=== PATIENT | female | born 1935 | race Caucasian/White ===

== ENCOUNTER 2018-01-22 18:23 | Inpatient (IN) | payer MEDICARE ==
[~2018-01-22] VITALS: Ht 170.2 cm; Wt 72.8 kg
--- NOTE | 2018-01-22 18:53 | PHYS DOC ---
Adult General Chief Complaint Chief Complaint: PSYCH EVALUATION HPI HPI Patient is a 82-year-old female with a history of congestive heart failure who was referred to this emergency room for medical clearance followed by admission to the adjacent hospital for [facility] psychiatric evaluation. This patient has had a new increasing dementia with behavioral disturbance as well as some suicidal thoughts and increasing agitation apparently on admission 12 [facility] psych unit has been arranged with Dr. gomez and we have been asked to this emergency room to medically clear the patient per the usual protocol. Patient denies any physical complaints she is perseverating on some incidents that may or may not be poorly taken care of. She says that she does have thoughts of hurting her daughter who she feels is not caring for her own children appropriately. Patient denies any physical complaints history is limited by dementia Review of Systems Review of Systems Unable secondary to dementia Physical Exam Physical Exam Constitutional: Well developed, well nourished, no acute distress, non-toxic appearance. [] HENT: Normocephalic, atraumatic, bilateral external ears normal, oropharynx moist, no oral exudates, nose normal. [] Eyes: PERRLA, EOMI, conjunctiva normal, no discharge. [] Neck: Normal range of motion, no tenderness, supple, no stridor. [] Normal respiratory effort no increased work of breathing Abdomen: Bowel sounds normal, soft, no tenderness, no masses, no pulsatile masses. [] Skin: Warm, dry, no erythema, no rash. [] Back: No tenderness, no CVA tenderness. [] Extremities: No tenderness, no cyanosis, no clubbing, ROM intact, trace edema Neurologic: Alert and responsive and following commands., normal motor function , normal sensory function, no focal deficits noted. []Patient is confused she thinks that she lives at home. Psychologic patient is perseverating on several different topics. She says that she does have some thoughts of hurting herself at times she has also had passing thoughts of hurting her daughter in the past. Current Patient Data Vital Signs Vital signs were reviewed. EKG EKG []EKG shows a normal sinus rhythm with a rate of 64 right bundle branch block pattern no STEMI was seen interpreted by me time of encounter Radiology/Procedures Radiology/Procedures [] Course & Med Decision Making Course & Med Decision Making Pertinent Labs and Imaging studies reviewed. (See chart for details) U/A NOTED, suspect this is a contaminated sample NO NITRITE POSITIVE SQUAMES CULTURE SENT. LABS STABLE MILD RENAL INSUFFICIENCY. SAFE FOR TRANSFER UP TO PSYCH UNIT FOR CONTINUED GERIPSYCHIATRIC EVALUATION [] Dragon Disclaimer Dragon Disclaimer This electronic medical record was generated, in whole or in part, using a voice recognition dictation system. Departure Departure: Impression: Primary Impression: Dementia with behavioral disturbance Disposition: ADMITTED INPATIENT Condition: STABLE MIKO GUZMAN MD January 22, 2018 18:53
[2018-01-22 19:34] LABS: BASO # 0.1 x10^3/uL (0.0-0.2); BASO % 1 % (0-3); EOS # 0.2 x10^3/uL (0.0-0.7); EOS % 3 % (0-3); HEMATOCRIT 40.3 % (36.0-47.0); HEMOGLOBIN 13.7 g/dL (12.0-15.5); LYMPH % 16 % (24-48); MEAN CORPUSCULAR HEMOGLOBIN 32 pg (25-35); MEAN CORPUSCULAR HGB CONC 34 g/dL (31-37); MEAN CORPUSCULAR VOLUME 94 fL (79-100); MONO # 0.4 x10^3/uL (0.0-1.1); MONO % 7 % (0-9); NEUT # 4.5 x10^3uL (1.8-7.7); NEUT % 73 % (31-73); PLATELET COUNT 257 x10^3/uL (140-400); RED BLOOD COUNT 4.31 x10^6/uL (3.50-5.40); RED CELL DISTRIBUTION WIDTH 14.7 % (11.5-14.5); WHITE BLOOD COUNT 6.1 x10^3/uL (4.0-11.0)
[2018-01-22 19:51] LABS: ALBUMIN 4.2 g/dL (3.4-5.0); CALCIUM 9.1 mg/dL (8.5-10.1); CREATININE 1.6 mg/dL (0.6-1.0); GFR 30.9; MAGNESIUM 2.4 mg/dL (1.8-2.4); POTASSIUM 4.1 mmol/L (3.5-5.1); TOTAL BILIRUBIN 0.6 mg/dL (0.2-1.0); TOTAL PROTEIN 8.3 g/dL (6.4-8.2)
[2018-01-22 20:00] LABS: BILIRUBIN,URINE NEG (NEG); CLARITY,URINE CLOUDY; COLOR,URINE YELLOW; GLUCOSE,URINE NEG (NEG)
[2018-01-22 20:01] LABS: BACTERIA,URINE MOD /HPF (0-FEW); HYALINE CASTS, URINE FEW /HPF; NITRITE,URINE NEG (NEG); SQUAMOUS EPITHELIAL CELL,UR MANY /LPF; UROBILINOGEN,URINE 0.2 mg/dL (0.2 mg/dL)
[2018-01-22 20:45] VITALS: BP 168/92
[2018-01-22] MEDS ORDERED: MAGNESIUM HYDROXIDE 2,400 MG/30 ML ORAL.SUSP. PO PRN (21:30)
[2018-01-22] MEDS ORDERED: METHYL SALICYLATE/MENTHOL TOPICAL OINTMENT 29GM TUBE. TP PRN (21:30)
[2018-01-22] MEDS ORDERED: MAG HYDROX/AL HYDROX/SIMETH 30 ML ORAL.SUSP PO PRN (21:30)
[2018-01-22] MEDS ORDERED: ACETAMINOPHEN 325 MG TABLET PO PRN ×2 (21:30→22:15)
--- NOTE | 2018-01-22 21:55 | EKG ---
[address] [address] Test Date: 2018-01-22 Test Time: 20:08:45 Pat Name: FRANCESCA URIARTE Department: Room: [address] [place] [address] Gender: F Instrument Checker: : 1935 Requested By: MIKO GUZMAN Order Number: [id number] Reading MD: Lazaro Craven Measurements Intervals [place] Rate: 64 P: 78 DC: 194 QRS: 1 QRSD: 122 T: 14 QT: 468 QTc: 488 Interpretive Statements SINUS RHYTHM INCOMPLETE RIGHT BUNDLE BRANCH BLOCK NO SPECIFIC ECG ABNORMALITIES RI6.01 No previous ECG available for comparison Electronically Signed On 02-09-2018 11:04:45 CDT by Lazaro Craven
[2018-01-22] MEDS ORDERED: ASPI325T8 PO (22:06)
[2018-01-22] MEDS ORDERED: AMIO200T2 PO (22:06)
[2018-01-22] MEDS ORDERED: ACET325T9 PO (22:06)
[2018-01-22] MEDS ORDERED: OMEG1CAP6 PO (22:06)
[2018-01-22] MEDS ORDERED: CARV3.122 PO (22:06)
[2018-01-22] MEDS ORDERED: LACT1CAP21 PO (22:06)
[2018-01-22] MEDS ORDERED: LORA0.5T96 PO ×2 (22:06)
[2018-01-22] MEDS ORDERED: FEXO180T81 PO (22:06)
[2018-01-22] MEDS ORDERED: POTA20TA4 PO (22:06)
[2018-01-22] MEDS ORDERED: PROP15DR40 OU (22:06)
[2018-01-22] MEDS ORDERED: FURO-69 PO (22:06)
[2018-01-22] MEDS ORDERED: CHOL10003 PO (22:06)
[2018-01-22] MEDS ORDERED: POLY17PO5 PO (22:06)
[2018-01-22] MEDS ORDERED: LEVO50TA PO (22:06)
[2018-01-22] MEDS ORDERED: QUET50TA5 PO (22:06)
[2018-01-22] MEDS ORDERED: GARL10002 PO (22:06)
[2018-01-22] MEDS ORDERED: NAPR-683 PO (22:06)
[2018-01-22] MEDS ORDERED: CYAN10005 PO (22:06)
[2018-01-22] MEDS ORDERED: MAGN400T3 PO (22:06)
[2018-01-22] MEDS ORDERED: IPRA3AMP NEB (22:06)
[2018-01-22] MEDS ORDERED: IPRA0.2S5 IH (22:06)
[2018-01-22] MEDS ORDERED: DILT120C80 PO (22:06)
[2018-01-22] MEDS ORDERED: IPRATROPIUM BROMIDE 0.5 MG/2.5 ML NEBU. IH PRN (22:15)
[2018-01-22] MEDS ORDERED: IPRATRPIUM/ALBUTEROL 0.5/2.5MG 3 ML NEBU. NEB PRN (22:15)
[2018-01-22] MEDS: QUEtiapine 50 MG TABLET. PO SCH (22:30)
[2018-01-22] MEDS: LORazepam 0.5 MG TABLET PO SCH (22:30)
[2018-01-22] MEDS ORDERED: POLYVINYL ALCOHOL/POVIDONE/PF OPHTH SOLUTION DROPERETTE. OU PRN (22:45)
[2018-01-23 06:17] VITALS: BP 141/63
[2018-01-23] MEDS ORDERED: LEVOTHYROXINE 50 MCG TABLET PO SCH (07:00)
[2018-01-23] MEDS: LACTOBACILLUS RHAMNOSUS GG 1 CAPSULE. PO SCH (08:44)
[2018-01-23] MEDS: POTASSIUM CHLORIDE 20 MEQ TABLET.ER. PO SCH (08:45)
[2018-01-23] MEDS: QUEtiapine 50 MG TABLET. PO SCH ×3 (08:45→21:06)
[2018-01-23] MEDS: CYANOCOBALAMIN (VITAMIN B-12) 1,000 MCG TABLET. PO SCH (08:45)
[2018-01-23] MEDS: ASPIRIN 325 MG TABLET PO SCH (08:45)
[2018-01-23] MEDS: OMEGA-3 FATTY ACIDS/FISH OIL 1,000 MG CAPSULE. PO SCH (08:46)
[2018-01-23] MEDS: AMIODARONE HCL 200 MG TABLET PO SCH (08:46)
[2018-01-23] MEDS: CARVEDILOL 3.125 MG TABLET PO SCH (08:46)
[2018-01-23] MEDS: MAGNESIUM OXIDE 400 MG TABLET PO SCH (08:46)
[2018-01-23] MEDS: NAPROXEN 500 MG TABLET PO SCH (08:47)
[2018-01-23] MEDS: FUROSEMIDE 20 MG TABLET PO SCH (08:47)
[2018-01-23] MEDS ORDERED: CETIRIZINE HCL 10 MG TABLET PO PRN (09:00)
[2018-01-23] MEDS ORDERED: GARLIC 2000 MG PO SCH (09:00)
[2018-01-23] MEDS ORDERED: POLYETHYLENE GLYCOL 3350 17 GM PACKET. PO PRN (09:00)
[2018-01-23] MEDS: LORazepam 0.5 MG TABLET PO PRN (09:02)
[2018-01-23 16:08] VITALS: BP 142/66
[2018-01-23] MEDS: CHOLECALCIFEROL (VITAMIN D3) 1,000 UNIT TABLET PO SCH (16:16)
[2018-01-23 20:11] LABS: T3 TOTAL 59 ng/dL (71-180); THYROXINE 6.4 ug/dL (4.5-12.0)
--- NOTE | 2018-01-23 20:45 | PDOC ---
Exam Note: Aakash Note: Please also refer to the separate dictated note~for this date of service dictated separately.~Patient seen individually. Discussed the patient with Nursing staff reviewed the chart.~Reviewed interim history and current functioning. Reviewed vital signs,~Labs/ Radiology~and current medications noted below. Continue current treatment with the changes noted in the dictated addendum note Assessment: Vital Signs: Vital Signs Date Time Temp Pulse Resp B/P (MAP) Pulse Ox O2 Delivery O2 Flow Rate FiO2 01/23/18 16:08 96.9 56 18 142/66 (91) 98 01/23/18 06:17 Room Air I&O Intake and Output 01/23/18 07:00 Intake Total 0 ml Balance 0 ml Intake Oral 0 ml Labs: Laboratory Tests Test 01/22/18 21:45 Iron Level 60 ug/dL (50-170) Total Iron Binding Capacity 268 ug/dL (250-450) Iron Saturation 22 % (15-34) Triglycerides Level 140 mg/dL (0-150) Cholesterol Level 234 mg/dL (0-200) H LDL Cholesterol, Calculated 144 mg/dL (0-100) H VLDL Cholesterol, Calculated 28 mg/dL (0-40) Non-HDL Cholesterol Calculated 172 mg/dL (0-129) H HDL Cholesterol 62 mg/dL (40-60) H Cholesterol/HDL Ratio 3.0 Vitamin B12 Level > 2000 pg/mL (247-911) H 25-Hydroxy Vitamin D Total 23.1 ng/mL (30-100) L Thyroxine (T4) 6.4 ug/dL (4.5-12.0) Total Triiodothyronine (TT3) 59 ng/dL (71-180) L Rapid Plasma Reagin Pending Current Medications: Meds: Current Medications Acetaminophen (Tylenol) 650 mg PRN Q6HRS PRN PO PAIN / TEMP; Start 01/22/18 at 21:30; Stop 01/22/18 at 22:23; Status DC Multi-Ingredient Ointment (Analgesic [place]) 1 morenita PRN QID PRN TP MUSCLE PAIN; Start 01/22/18 at 21:30 Al Hydroxide/Mg Hydroxide (Mylanta Plus Xs) 15 ml PRN AFTMEALHC PRN PO DYSPEPSIA; Start 01/22/18 at 21:30 Magnesium Hydroxide (Milk Of Magnesia) 2,400 mg PRN QHS PRN PO CONSTIPATION; Start 01/22/18 at 21:30 Lorazepam (Ativan) 0.5 mg QHS PO ; Start 01/22/18 at 22:30 Lorazepam (Ativan) 0.5 mg PRN Q4HRS PRN PO ANXIETY / AGITATION Last administered on 01/23/18at 09:02; Start 01/22/18 at 22:30 Quetiapine Fumarate (SEROquel) 50 mg TID PO Last administered on 01/23/18at 14:44 ; Start 01/22/18 at 22:30 Acetaminophen (Tylenol) 650 mg PRN Q4HRS PRN PO PAIN; Start 01/22/18 at 22:15; Stop 01/22/18 at 22:24; Status DC Aspirin (Galina Aspirin) 325 mg DAILY PO Last administered on 01/23/18at 08:45; Start 01/23/18 at 09:00 Vitamin D (Vitamin D3) 1,000 unit QMWF PO Last administered on 01/23/18at 16:16; Start 01/23/18 at 16:00 Cyanocobalamin (Vitamin B-12) 1,000 mcg DAILY PO Last administered on 01/23/18at 08:45; Start 01/23/18 at 09:00 Diltiazem HCl (Cardizem 24hr Cd) 120 mg DAILY PO Last administered on 01/23/18at 08:45; Start 01/23/18 at 09:00 Furosemide (Lasix) 20 mg DAILY PO Last administered on 01/23/18at 08:47; Start at 09:00 Ipratropium [place] (Atrovent) 0.2 mg PRN Q4HRS PRN IH SHORTNESS OF BREATH; Start 01/22/18 at 22:15 Albuterol/ Ipratropium (Duoneb) 3 ml PRN QID PRN NEB SHORTNESS OF BREATH; Start 01/22/18 at 22:15 Fish Oil (Fish Oil) 1,000 mg DAILY PO Last administered on 01/23/18at 08:46; Start 01/23/18 at 09:00 Potassium Chloride (Klor-Con) 20 meq DAILY PO Last administered on 01/23/18at 08: 45; Start 01/23/18 at 09:00 Amiodarone HCl (Cordarone) 200 mg DAILY PO Last administered on 01/23/18at 08:46 ; Start 01/23/18 at 09:00 Carvedilol (Coreg) 3.125 mg DAILY PO Last administered on 01/23/18at 08:46; Start 01/23/18 at 09:00 Cetirizine HCl (ZyrTEC) 10 mg PRN DAILY PRN PO ALLERGIES Last administered on at 08:45; Start 01/23/18 at 09:00 Non-Formulary Medication (Garlic ) 2,000 mg DAILY PO ; Start 01/23/18 at 09:00; Stop 01/23/18 at 09:00; Status DC Lactobacillus Rhamnosus (Culturelle) 1 cap DAILY PO Last administered on at 08:44; Start 01/23/18 at 09:00 Levothyroxine Sodium (Synthroid) 50 mcg DAILY07 PO Last administered on at 05:46; Start 01/23/18 at 07:00; Stop 01/23/18 at 14:03; Status DC Magnesium Oxide (Magnesium Oxide) 400 mg DAILY PO Last administered on at 08:46; Start 01/23/18 at 09:00 Naproxen (Naprosyn) 500 mg DAILY PO Last administered on 01/23/18at 08:47; Start 01/23/18 at 09:00 Polyethylene Glycol (miraLAX) 17 gm PRN DAILY PRN PO CONSTIPATION; Start at 09:00 Artificial Tears (Refresh Classic) 1 drop PRN DAILY PRN OU DRY EYE; Start 01/22 at 22:45 Acetaminophen (Tylenol) 650 mg PRN Q4HRS PRN PO PAIN / TEMP; Start 01/22/18 at 22:30 Levothyroxine Sodium (Synthroid) 50 mcg DAILY06 PO ; Start 01/24/18 at 06:00 Sertraline HCl (Zoloft) 25 mg DAILY PO ; Start 01/24/18 at 09:00; Stop 01/27/18 at 08:59 Sertraline HCl (Zoloft) 50 mg DAILY PO ; Start 01/27/18 at 09:00 Active Scripts Active Reported Vitamin D3 (Cholecalciferol (Vitamin D3)) 1,000 Unit Tablet 1,000 Unit PO EVERY FRI,WED,FRI Vitamin B-12 (Cyanocobalamin (Vitamin B-12)) 1,000 Mcg Tablet 1,000 Mcg PO DAILY Tylenol (Acetaminophen) 325 Mg Tablet 650 Mg PO PRN Q4HRS PRN Systane 0.3-0.4% Eye Drops (Propylene Glycol/Peg 400) 15 Ml Drops 1 Drop OU PRN PRN Synthroid (Levothyroxine Sodium) 50 Mcg Tablet 50 Mcg PO DAILYAC Seroquel (Quetiapine Fumarate) 50 Mg Tablet 50 Mg PO TID Klor-Con M20 (Potassium Chloride) 20 Meq Tab.er.prt 20 Meq PO DAILY Naprosyn (Naproxen) 500 Mg Tablet 500 Mg PO DAILY Miralax (Polyethylene Glycol 3350) 17 Gm Powd.pack 17 Gm PO PRN Q24HRS PRN Magnesium Oxide 400 Mg Tablet 400 Mg PO DAILY Lasix (Furosemide) 20 Mg Tablet 20 Mg PO DAILY Ipratropium [place] 0.2 Mg/1 Ml Solution 0.2 Mg IH PRN Q4HRS PRN Garlic 1,000 Mg Capsule 2,000 Mg PO DAILY Fish Oil 1,000 Mg Capsule ([place]-3 Fatty Acids/Fish Oil) 1 Each Capsule 1 Each PO DAILY Duoneb 0.5-3(2.5) Mg/3 Ml (Albuterol/Ipratropium) 3 Ml Ampul.neb 3 Ml NEB PRN QID PRN Diltiazem 24HR Cd (Diltiazem Hcl) 120 Mg Cap.er.24h 120 Mg PO DAILY Culturelle (Lactobacillus Rhamnosus Gg) 1 Each Capsule 1 Each PO DAILY Carvedilol 3.125 Mg Tablet 3.125 Mg PO DAILY Ativan (Lorazepam) 0.5 Mg Tablet 0.5 Mg PO PRN Q4HRS PRN Ativan (Lorazepam) 0.5 Mg Tablet 0.5 Mg PO HS Aspirin 325 Mg Tablet 325 Mg PO DAILY Amiodarone Hcl 200 Mg Tablet 200 Mg PO DAILY Janiya Allergy (Fexofenadine Hcl) 180 Mg Tablet 180 Mg PO PRN DAILY PRN I have reviewed the current psychotropics carefully including drug interactions. Risk benefit ratio favors no change other than as noted in my dictated progress note. Diagnosis: Problems: (1) Anxiety disorder (2) Dementia in Alzheimer's disease with delusions (3) Dementia in Alzheimer's disease with depression (4) Dementia, vascular, with delusions (5) Dementia, vascular, with depression (6) Impulse control disorder SANDER RASMUSSEN MD Jan 23, 2018 20:45
[2018-01-23] MEDS: LORazepam 0.5 MG TABLET PO SCH (21:08)
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
[2018-01-24 02:09] LABS: HEMOGLOBIN A1C 5.2 % (4.8-5.6)
[2018-01-24] MEDS: LEVOTHYROXINE 50 MCG TABLET PO SCH (06:04)
[2018-01-24 06:19] VITALS: BP 160/56
[2018-01-24] MEDS: ASPIRIN 325 MG TABLET PO SCH (07:55)
[2018-01-24] MEDS: QUEtiapine 50 MG TABLET. PO SCH ×3 (07:55→20:17)
[2018-01-24] MEDS: NAPROXEN 500 MG TABLET PO SCH (07:55)
[2018-01-24] MEDS: OMEGA-3 FATTY ACIDS/FISH OIL 1,000 MG CAPSULE. PO SCH (07:55)
[2018-01-24] MEDS: MAGNESIUM OXIDE 400 MG TABLET PO SCH (07:55)
[2018-01-24] MEDS: LACTOBACILLUS RHAMNOSUS GG 1 CAPSULE. PO SCH (07:56)
[2018-01-24] MEDS: FUROSEMIDE 20 MG TABLET PO SCH (07:56)
[2018-01-24] MEDS: POTASSIUM CHLORIDE 20 MEQ TABLET.ER. PO SCH (07:57)
[2018-01-24] MEDS: AMIODARONE HCL 200 MG TABLET PO SCH (07:57)
[2018-01-24] MEDS: CYANOCOBALAMIN (VITAMIN B-12) 1,000 MCG TABLET. PO SCH (07:57)
[2018-01-24] MEDS: CARVEDILOL 3.125 MG TABLET PO SCH (07:58)
[2018-01-24] MEDS: SERTRALINE 25 MG TABLET. PO SCH (08:01)
[2018-01-24 16:44] VITALS: BP 108/62
[2018-01-24] MEDS: LORazepam 0.5 MG TABLET PO SCH (20:18)
--- NOTE | 2018-01-24 22:09 | PDOC ---
Exam Note: Aakash Note: Please also refer to the separate dictated note~for this date of service dictated separately.~Patient seen individually. Discussed the patient with Nursing staff reviewed the chart.~Reviewed interim history and current functioning. Reviewed vital signs,~Labs/ Radiology~and current medications noted below. Continue current treatment with the changes noted in the dictated addendum note Assessment: Vital Signs: Vital Signs Date Time Temp Pulse Resp B/P (MAP) Pulse Ox O2 Delivery O2 Flow Rate FiO2 01/24/18 16:44 97.4 50 18 108/62 (77) 99 01/23/18 06:17 Room Air I&O Intake and Output 01/24/18 07:00 Intake Total 1020 ml Balance 1020 ml Intake Oral 1020 ml Current Medications: Meds: Current Medications Acetaminophen (Tylenol) 650 mg PRN Q6HRS PRN PO PAIN / TEMP; Start 01/22/18 at 21:30; Stop 01/22/18 at 22:23; Status DC Multi-Ingredient Ointment (Analgesic [place]) 1 morenita PRN QID PRN TP MUSCLE PAIN; Start 01/22/18 at 21:30 Al Hydroxide/Mg Hydroxide (Mylanta Plus Xs) 15 ml PRN AFTMEALHC PRN PO DYSPEPSIA; Start 01/22/18 at 21:30 Magnesium Hydroxide (Milk Of Magnesia) 2,400 mg PRN QHS PRN PO CONSTIPATION; Start 01/22/18 at 21:30 Lorazepam (Ativan) 0.5 mg QHS PO Last administered on 01/24/18at 20:18; Start at 22:30 Lorazepam (Ativan) 0.5 mg PRN Q4HRS PRN PO ANXIETY / AGITATION Last administered on 01/23/18at 09:02; Start 01/22/18 at 22:30 Quetiapine Fumarate (SEROquel) 50 mg TID PO Last administered on 01/24/18at 20:17 ; Start 01/22/18 at 22:30 Acetaminophen (Tylenol) 650 mg PRN Q4HRS PRN PO PAIN; Start 01/22/18 at 22:15; Stop 01/22/18 at 22:24; Status DC Aspirin (Galina Aspirin) 325 mg DAILY PO Last administered on 01/24/18at 07:55; Start 01/23/18 at 09:00 Vitamin D (Vitamin D3) 1,000 unit QMWF PO Last administered on 01/23/18at 16:16; Start 01/23/18 at 16:00 Cyanocobalamin (Vitamin B-12) 1,000 mcg DAILY PO Last administered on 01/24/18at 07:57; Start 01/23/18 at 09:00 Diltiazem HCl (Cardizem 24hr Cd) 120 mg DAILY PO Last administered on 01/24/18at 07:57; Start 01/23/18 at 09:00 Furosemide (Lasix) 20 mg DAILY PO Last administered on 01/24/18 07:56; Start at 09:00 Ipratropium [place] (Atrovent) 0.2 mg PRN Q4HRS PRN IH SHORTNESS OF BREATH; Start 01/22/18 at 22:15 Albuterol/ Ipratropium (Duoneb) 3 ml PRN QID PRN NEB SHORTNESS OF BREATH; Start 01/22/18 at 22:15 Fish Oil (Fish Oil) 1,000 mg DAILY PO Last administered on 01/24/18at 07:55; Start 01/23/18 at 09:00 Potassium Chloride (Klor-Con) 20 meq DAILY PO Last administered on 01/24/18 07: 57; Start 01/23/18 at 09:00 Amiodarone HCl (Cordarone) 200 mg DAILY PO Last administered on 01/23/18at 08:46 ; Start 01/23/18 at 09:00 Carvedilol (Coreg) 3.125 mg DAILY PO Last administered on 01/23/18at 08:46; Start 01/23/18 at 09:00 Cetirizine HCl (ZyrTEC) 10 mg PRN DAILY PRN PO ALLERGIES Last administered on at 08:45; Start 01/23/18 at 09:00 Non-Formulary Medication (Garlic ) 2,000 mg DAILY PO ; Start 01/23/18 at 09:00; Stop 01/23/18 at 09:00; Status DC Lactobacillus Rhamnosus (Culturelle) 1 cap DAILY PO Last administered on at 07:56; Start 01/23/18 at 09:00 Levothyroxine Sodium (Synthroid) 50 mcg DAILY07 PO Last administered on at 05:46; Start 01/23/18 at 07:00; Stop 01/23/18 at 14:03; Status DC Magnesium Oxide (Magnesium Oxide) 400 mg DAILY PO Last administered on at 07:55; Start 01/23/18 at 09:00 Naproxen (Naprosyn) 500 mg DAILY PO Last administered on 01/24/18at 07:55; Start 01/23/18 at 09:00 Polyethylene Glycol (miraLAX) 17 gm PRN DAILY PRN PO CONSTIPATION; Start at 09:00 Artificial Tears (Refresh Classic) 1 drop PRN DAILY PRN OU DRY EYE; Start 01/22 at 22:45 Acetaminophen (Tylenol) 650 mg PRN Q4HRS PRN PO PAIN / TEMP; Start 01/22/18 at 22:30 Levothyroxine Sodium (Synthroid) 50 mcg DAILY06 PO Last administered on at 06:04; Start 01/24/18 at 06:00 Sertraline HCl (Zoloft) 25 mg DAILY PO Last administered on 01/24/18at 08:01; Start 01/24/18 at 09:00; Stop 01/27/18 at 08:59 Sertraline HCl (Zoloft) 50 mg DAILY PO ; Start 01/27/18 at 09:00 Olanzapine (ZyPREXA ZYDIS) 2.5 mg PRN Q2HR PRN PO PSYCHOSIS Last administered on 01/24/18at 22:08; Start 01/24/18 at 22:00 Active Scripts Active Reported Vitamin D3 (Cholecalciferol (Vitamin D3)) 1,000 Unit Tablet 1,000 Unit PO EVERY FRI,WED,FRI Vitamin B-12 (Cyanocobalamin (Vitamin B-12)) 1,000 Mcg Tablet 1,000 Mcg PO DAILY Tylenol (Acetaminophen) 325 Mg Tablet 650 Mg PO PRN Q4HRS PRN Systane 0.3-0.4% Eye Drops (Propylene Glycol/Peg 400) 15 Ml Drops 1 Drop OU PRN PRN Synthroid (Levothyroxine Sodium) 50 Mcg Tablet 50 Mcg PO DAILYAC Seroquel (Quetiapine Fumarate) 50 Mg Tablet 50 Mg PO TID Klor-Con M20 (Potassium Chloride) 20 Meq Tab.er.prt 20 Meq PO DAILY Naprosyn (Naproxen) 500 Mg Tablet 500 Mg PO DAILY Miralax (Polyethylene Glycol 3350) 17 Gm Powd.pack 17 Gm PO PRN Q24HRS PRN Magnesium Oxide 400 Mg Tablet 400 Mg PO DAILY Lasix (Furosemide) 20 Mg Tablet 20 Mg PO DAILY Ipratropium [place] 0.2 Mg/1 Ml Solution 0.2 Mg IH PRN Q4HRS PRN Garlic 1,000 Mg Capsule 2,000 Mg PO DAILY Fish Oil 1,000 Mg Capsule ([place]-3 Fatty Acids/Fish Oil) 1 Each Capsule 1 Each PO DAILY Duoneb 0.5-3(2.5) Mg/3 Ml (Albuterol/Ipratropium) 3 Ml Ampul.neb 3 Ml NEB PRN QID PRN Diltiazem 24HR Cd (Diltiazem Hcl) 120 Mg Cap.er.24h 120 Mg PO DAILY Culturelle (Lactobacillus Rhamnosus Gg) 1 Each Capsule 1 Each PO DAILY Carvedilol 3.125 Mg Tablet 3.125 Mg PO DAILY Ativan (Lorazepam) 0.5 Mg Tablet 0.5 Mg PO PRN Q4HRS PRN Ativan (Lorazepam) 0.5 Mg Tablet 0.5 Mg PO HS Aspirin 325 Mg Tablet 325 Mg PO DAILY Amiodarone Hcl 200 Mg Tablet 200 Mg PO DAILY Janiya Allergy (Fexofenadine Hcl) 180 Mg Tablet 180 Mg PO PRN DAILY PRN I have reviewed the current psychotropics carefully including drug interactions. Risk benefit ratio favors no change other than as noted in my dictated progress note. Diagnosis: Problems: (1) Anxiety disorder (2) Dementia in Alzheimer's disease with delusions (3) Dementia in Alzheimer's disease with depression (4) Dementia, vascular, with delusions (5) Dementia, vascular, with depression (6) Impulse control disorder SANDER RASMUSSEN MD Jan 24, 2018 22:09
[2018-01-25] MEDS: LEVOTHYROXINE 50 MCG TABLET PO SCH ×2 (05:11→05:37)
[2018-01-25] MEDS: NAPROXEN 500 MG TABLET PO SCH (07:57)
[2018-01-25] MEDS: ASPIRIN 325 MG TABLET PO SCH (07:57)
[2018-01-25] MEDS: FUROSEMIDE 20 MG TABLET PO SCH (07:57)
[2018-01-25] MEDS: QUEtiapine 50 MG TABLET. PO SCH ×3 (07:57→19:42)
[2018-01-25] MEDS: POTASSIUM CHLORIDE 20 MEQ TABLET.ER. PO SCH (07:57)
[2018-01-25] MEDS: OMEGA-3 FATTY ACIDS/FISH OIL 1,000 MG CAPSULE. PO SCH (07:57)
[2018-01-25] MEDS: CYANOCOBALAMIN (VITAMIN B-12) 1,000 MCG TABLET. PO SCH (07:58)
[2018-01-25] MEDS: MAGNESIUM OXIDE 400 MG TABLET PO SCH (07:58)
[2018-01-25] MEDS: SERTRALINE 25 MG TABLET. PO SCH (07:58)
[2018-01-25] MEDS: CARVEDILOL 3.125 MG TABLET PO SCH (07:59)
[2018-01-25] MEDS: LACTOBACILLUS RHAMNOSUS GG 1 CAPSULE. PO SCH (07:59)
[2018-01-25] MEDS: AMIODARONE HCL 200 MG TABLET PO SCH (07:59)
[2018-01-25] MEDS ORDERED: FOSFOMYCIN TROMETHAMINE 3 GM PACKET PO ONE (16:00)
[2018-01-25 16:32] VITALS: BP 100/61
[2018-01-25] MEDS: LORazepam 0.5 MG TABLET PO SCH (19:42)
--- NOTE | 2018-01-25 20:01 | PDOC ---
Exam Note: Aakash Note: Please also refer to the separate dictated note~for this date of service dictated separately.~Patient seen individually. Discussed the patient with Nursing staff reviewed the chart.~Reviewed interim history and current functioning. Reviewed vital signs,~Labs/ Radiology~and current medications noted below. Continue current treatment with the changes noted in the dictated addendum note Assessment: Vital Signs: Vital Signs Date Time Temp Pulse Resp B/P (MAP) Pulse Ox O2 Delivery O2 Flow Rate FiO2 01/25/18 16:32 97.5 51 16 100/61 (74) 96 01/23/18 06:17 Room Air I&O Intake and Output 01/25/18 07:00 Intake Total 240 ml Balance 240 ml Intake Oral 240 ml Current Medications: Meds: Current Medications Acetaminophen (Tylenol) 650 mg PRN Q6HRS PRN PO PAIN / TEMP; Start 01/22/18 at 21:30; Stop 01/22/18 at 22:23; Status DC Multi-Ingredient Ointment (Analgesic [place]) 1 morenita PRN QID PRN TP MUSCLE PAIN; Start 01/22/18 at 21:30 Al Hydroxide/Mg Hydroxide (Mylanta Plus Xs) 15 ml PRN AFTMEALHC PRN PO DYSPEPSIA; Start 01/22/18 at 21:30 Magnesium Hydroxide (Milk Of Magnesia) 2,400 mg PRN QHS PRN PO CONSTIPATION; Start 01/22/18 at 21:30 Lorazepam (Ativan) 0.5 mg QHS PO Last administered on 01/25/18at 19:42; Start at 22:30 Lorazepam (Ativan) 0.5 mg PRN Q4HRS PRN PO ANXIETY / AGITATION Last administered on 01/23/18at 09:02; Start 01/22/18 at 22:30 Quetiapine Fumarate (SEROquel) 50 mg TID PO Last administered on 01/25/18at 19:42 ; Start 01/22/18 at 22:30 Acetaminophen (Tylenol) 650 mg PRN Q4HRS PRN PO PAIN; Start 01/22/18 at 22:15; Stop 01/22/18 at 22:24; Status DC Aspirin ([place] Aspirin) 325 mg DAILY PO Last administered on 01/25/18at 07:57; Start 01/23/18 at 09:00 Vitamin D (Vitamin D3) 1,000 unit QMWF PO Last administered on 01/23/18 16:16; Start 01/23/18 at 16:00 Cyanocobalamin (Vitamin B-12) 1,000 mcg DAILY PO Last administered on 01/25/18 07:58; Start 01/23/18 at 09:00 Diltiazem HCl (Cardizem 24hr Cd) 120 mg DAILY PO Last administered on 01/24/18 07:57; Start 01/23/18 at 09:00; Stop 01/25/18 at 15:15; Status DC Furosemide (Lasix) 20 mg DAILY PO Last administered on 01/25/18 07:57; Start at 09:00 Ipratropium [place] (Atrovent) 0.2 mg PRN Q4HRS PRN IH SHORTNESS OF BREATH; Start 01/22/18 at 22:15 Albuterol/ Ipratropium (Duoneb) 3 ml PRN QID PRN NEB SHORTNESS OF BREATH; Start 01/22/18 at 22:15 Fish Oil (Fish Oil) 1,000 mg DAILY PO Last administered on 01/25/18 07:57; Start 01/23/18 at 09:00 Potassium Chloride (Klor-Con) 20 meq DAILY PO Last administered on 01/25/18 07: 57; Start 01/23/18 at 09:00 Amiodarone HCl (Cordarone) 200 mg DAILY PO Last administered on 01/23/18at 08:46 ; Start 01/23/18 at 09:00 Carvedilol (Coreg) 3.125 mg DAILY PO Last administered on 01/23/18at 08:46; Start 01/23/18 at 09:00 Cetirizine HCl (ZyrTEC) 10 mg PRN DAILY PRN PO ALLERGIES Last administered on 08:45; Start 01/23/18 at 09:00 Non-Formulary Medication (Garlic ) 2,000 mg DAILY PO ; Start 01/23/18 at 09:00; Stop 01/23/18 at 09:00; Status DC Lactobacillus Rhamnosus (Culturelle) 1 cap DAILY PO Last administered on 07:59; Start 01/23/18 at 09:00 Levothyroxine Sodium (Synthroid) 50 mcg DAILY07 PO Last administered on at 05:46; Start 01/23/18 at 07:00; Stop 01/23/18 at 14:03; Status DC Magnesium Oxide (Magnesium Oxide) 400 mg DAILY PO Last administered on at 07:58; Start 01/23/18 at 09:00 Naproxen (Naprosyn) 500 mg DAILY PO Last administered on 01/25/18at 07:57; Start 01/23/18 at 09:00 Polyethylene Glycol (miraLAX) 17 gm PRN DAILY PRN PO CONSTIPATION; Start at 09:00 Artificial Tears (Refresh Classic) 1 drop PRN DAILY PRN OU DRY EYE; Start 01/22 at 22:45 Acetaminophen (Tylenol) 650 mg PRN Q4HRS PRN PO PAIN / TEMP; Start 01/22/18 at 22:30 Levothyroxine Sodium (Synthroid) 50 mcg DAILY06 PO Last administered on at 06:04; Start 01/24/18 at 06:00; Stop 01/25/18 at 15:10; Status DC Sertraline HCl (Zoloft) 25 mg DAILY PO Last administered on 01/25/18at 07:58; Start 01/24/18 at 09:00; Stop 01/27/18 at 08:59 Sertraline HCl (Zoloft) 50 mg DAILY PO ; Start 01/27/18 at 09:00 Olanzapine (ZyPREXA ZYDIS) 2.5 mg PRN Q2HR PRN PO PSYCHOSIS Last administered on 01/25/18at 18:03; Start 01/24/18 at 22:00 Levothyroxine Sodium (Synthroid) 75 mcg DAILY06 PO ; Start 01/26/18 at 06:00 Fosfomycin Tromethamine (Monurol) 3 gm 1X ONCE PO Last administered on at 18:03; Start 01/25/18 at 16:00; Stop 01/25/18 at 16:01; Status DC Active Scripts Active Reported Vitamin D3 (Cholecalciferol (Vitamin D3)) 1,000 Unit Tablet 1,000 Unit PO EVERY FRI,WED,FRI Vitamin B-12 (Cyanocobalamin (Vitamin B-12)) 1,000 Mcg Tablet 1,000 Mcg PO DAILY Tylenol (Acetaminophen) 325 Mg Tablet 650 Mg PO PRN Q4HRS PRN Systane 0.3-0.4% Eye Drops (Propylene Glycol/Peg 400) 15 Ml Drops 1 Drop OU PRN PRN Synthroid (Levothyroxine Sodium) 50 Mcg Tablet 50 Mcg PO DAILYAC Seroquel (Quetiapine Fumarate) 50 Mg Tablet 50 Mg PO TID Klor-Con M20 (Potassium Chloride) 20 Meq Tab.er.prt 20 Meq PO DAILY Naprosyn (Naproxen) 500 Mg Tablet 500 Mg PO DAILY Miralax (Polyethylene Glycol 3350) 17 Gm Powd.pack 17 Gm PO PRN Q24HRS PRN Magnesium Oxide 400 Mg Tablet 400 Mg PO DAILY Lasix (Furosemide) 20 Mg Tablet 20 Mg PO DAILY Ipratropium [place] 0.2 Mg/1 Ml Solution 0.2 Mg IH PRN Q4HRS PRN Garlic 1,000 Mg Capsule 2,000 Mg PO DAILY Fish Oil 1,000 Mg Capsule ([place]-3 Fatty Acids/Fish Oil) 1 Each Capsule 1 Each PO DAILY Duoneb 0.5-3(2.5) Mg/3 Ml (Albuterol/Ipratropium) 3 Ml Ampul.neb 3 Ml NEB PRN QID PRN Diltiazem 24HR Cd (Diltiazem Hcl) 120 Mg Cap.er.24h 120 Mg PO DAILY Culturelle (Lactobacillus Rhamnosus Gg) 1 Each Capsule 1 Each PO DAILY Carvedilol 3.125 Mg Tablet 3.125 Mg PO DAILY Ativan (Lorazepam) 0.5 Mg Tablet 0.5 Mg PO PRN Q4HRS PRN Ativan (Lorazepam) 0.5 Mg Tablet 0.5 Mg PO HS Aspirin 325 Mg Tablet 325 Mg PO DAILY Amiodarone Hcl 200 Mg Tablet 200 Mg PO DAILY Janiya Allergy (Fexofenadine Hcl) 180 Mg Tablet 180 Mg PO PRN DAILY PRN I have reviewed the current psychotropics carefully including drug interactions. Risk benefit ratio favors no change other than as noted in my dictated progress note. Diagnosis: Problems: (1) Anxiety disorder (2) Dementia in Alzheimer's disease with delusions (3) Dementia in Alzheimer's disease with depression (4) Dementia, vascular, with delusions (5) Dementia, vascular, with depression (6) Impulse control disorder GRADY,MAN M MD Jan 25, 2018 20:01
[2018-01-26] MEDS: NAPROXEN 500 MG TABLET PO SCH ×2 (01:23→10:44)
[2018-01-26] MEDS: LEVOTHYROXINE 75 MCG TABLET PO SCH (05:29)
[2018-01-26 05:58] VITALS: BP 132/54
[2018-01-26] MEDS: ASPIRIN 325 MG TABLET PO SCH (10:43)
[2018-01-26] MEDS: FUROSEMIDE 20 MG TABLET PO SCH (10:43)
[2018-01-26] MEDS: OMEGA-3 FATTY ACIDS/FISH OIL 1,000 MG CAPSULE. PO SCH (10:43)
[2018-01-26] MEDS: LACTOBACILLUS RHAMNOSUS GG 1 CAPSULE. PO SCH (10:43)
[2018-01-26] MEDS: QUEtiapine 50 MG TABLET. PO SCH ×3 (10:44→20:05)
[2018-01-26] MEDS: SERTRALINE 25 MG TABLET. PO SCH (10:44)
[2018-01-26] MEDS: CHOLECALCIFEROL (VITAMIN D3) 1,000 UNIT TABLET PO SCH (10:44)
[2018-01-26] MEDS: MAGNESIUM OXIDE 400 MG TABLET PO SCH (10:44)
[2018-01-26] MEDS: POTASSIUM CHLORIDE 20 MEQ TABLET.ER. PO SCH (10:44)
[2018-01-26] MEDS: CYANOCOBALAMIN (VITAMIN B-12) 1,000 MCG TABLET. PO SCH (10:44)
[2018-01-26] MEDS: CARVEDILOL 3.125 MG TABLET PO SCH (10:45)
[2018-01-26] MEDS: AMIODARONE HCL 200 MG TABLET PO SCH (10:46)
[2018-01-26 16:44] VITALS: BP 156/67
[2018-01-26] MEDS: LORazepam 0.5 MG TABLET PO SCH (20:07)
--- NOTE | 2018-01-26 20:54 | PDOC ---
Exam Note: Aakash Note: Please also refer to the separate dictated note~for this date of service dictated separately.~Patient seen individually. Discussed the patient with Nursing staff reviewed the chart.~Reviewed interim history and current functioning. Reviewed vital signs,~Labs/ Radiology~and current medications noted below. Continue current treatment with the changes noted in the dictated addendum note Assessment: Vital Signs: Vital Signs Date Time Temp Pulse Resp B/P (MAP) Pulse Ox O2 Delivery O2 Flow Rate FiO2 01/26/18 16:44 97.1 61 18 156/67 (96) 94 Room Air I&O Intake and Output 01/26/18 07:00 Intake Total 820 ml Balance 820 ml Intake Oral 820 ml Current Medications: Meds: Current Medications Acetaminophen (Tylenol) 650 mg PRN Q6HRS PRN PO PAIN / TEMP; Start 01/22/18 at 21:30; Stop 01/22/18 at 22:23; Status DC Multi-Ingredient Ointment (Analgesic [place]) 1 morenita PRN QID PRN TP MUSCLE PAIN; Start 01/22/18 at 21:30 Al Hydroxide/Mg Hydroxide (Mylanta Plus Xs) 15 ml PRN AFTMEALHC PRN PO DYSPEPSIA; Start 01/22/18 at 21:30 Magnesium Hydroxide (Milk Of Magnesia) 2,400 mg PRN QHS PRN PO CONSTIPATION; Start 01/22/18 at 21:30 Lorazepam (Ativan) 0.5 mg QHS PO Last administered on 01/26/18at 20:07; Start at 22:30 Lorazepam (Ativan) 0.5 mg PRN Q4HRS PRN PO ANXIETY / AGITATION Last administered on 01/23/18at 09:02; Start 01/22/18 at 22:30 Quetiapine Fumarate (SEROquel) 50 mg TID PO Last administered on 01/26/18at 20:05 ; Start 01/22/18 at 22:30 Acetaminophen (Tylenol) 650 mg PRN Q4HRS PRN PO PAIN; Start 01/22/18 at 22:15; Stop 01/22/18 at 22:24; Status DC Aspirin (Galina Aspirin) 325 mg DAILY PO Last administered on 01/26/18at 10:43; Start 01/23/18 at 09:00 Vitamin D (Vitamin D3) 1,000 unit QMWF PO Last administered on 01/26/18 10:44; Start 01/23/18 at 16:00 Cyanocobalamin (Vitamin B-12) 1,000 mcg DAILY PO Last administered on 01/26/18 10:44; Start 01/23/18 at 09:00 Diltiazem HCl (Cardizem 24hr Cd) 120 mg DAILY PO Last administered on 01/24/18 07:57; Start 01/23/18 at 09:00; Stop 01/25/18 at 15:15; Status DC Furosemide (Lasix) 20 mg DAILY PO Last administered on 01/26/18 10:43; Start at 09:00 Ipratropium [place] (Atrovent) 0.2 mg PRN Q4HRS PRN IH SHORTNESS OF BREATH; Start 01/22/18 at 22:15 Albuterol/ Ipratropium (Duoneb) 3 ml PRN QID PRN NEB SHORTNESS OF BREATH; Start 01/22/18 at 22:15 Fish Oil (Fish Oil) 1,000 mg DAILY PO Last administered on 01/26/18 10:43; Start 01/23/18 at 09:00 Potassium Chloride (Klor-Con) 20 meq DAILY PO Last administered on 01/26/18 10: 44; Start 01/23/18 at 09:00 Amiodarone HCl (Cordarone) 200 mg DAILY PO Last administered on 01/26/18 10:46 ; Start 01/23/18 at 09:00 Carvedilol (Coreg) 3.125 mg DAILY PO Last administered on 01/26/18 10:45; Start 01/23/18 at 09:00 Cetirizine HCl (ZyrTEC) 10 mg PRN DAILY PRN PO ALLERGIES Last administered on 08:45; Start 01/23/18 at 09:00 Non-Formulary Medication (Garlic ) 2,000 mg DAILY PO ; Start 01/23/18 at 09:00; Stop 01/23/18 at 09:00; Status DC Lactobacillus Rhamnosus (Culturelle) 1 cap DAILY PO Last administered on 10:43; Start 01/23/18 at 09:00 Levothyroxine Sodium (Synthroid) 50 mcg DAILY07 PO Last administered on at 05:46; Start 01/23/18 at 07:00; Stop 01/23/18 at 14:03; Status DC Magnesium Oxide (Magnesium Oxide) 400 mg DAILY PO Last administered on at 10:44; Start 01/23/18 at 09:00 Naproxen (Naprosyn) 500 mg DAILY PO Last administered on 01/26/18at 10:44; Start 01/23/18 at 09:00 Polyethylene Glycol (miraLAX) 17 gm PRN DAILY PRN PO CONSTIPATION; Start at 09:00 Artificial Tears (Refresh Classic) 1 drop PRN DAILY PRN OU DRY EYE; Start 01/22 at 22:45 Acetaminophen (Tylenol) 650 mg PRN Q4HRS PRN PO PAIN / TEMP; Start 01/22/18 at 22:30 Levothyroxine Sodium (Synthroid) 50 mcg DAILY06 PO Last administered on at 06:04; Start 01/24/18 at 06:00; Stop 01/25/18 at 15:10; Status DC Sertraline HCl (Zoloft) 25 mg DAILY PO Last administered on 01/26/18at 10:44; Start 01/24/18 at 09:00; Stop 01/27/18 at 08:59 Sertraline HCl (Zoloft) 50 mg DAILY PO ; Start 01/27/18 at 09:00 Olanzapine (ZyPREXA ZYDIS) 2.5 mg PRN Q2HR PRN PO PSYCHOSIS Last administered on 01/25/18at 22:19; Start 01/24/18 at 22:00 Levothyroxine Sodium (Synthroid) 75 mcg DAILY06 PO Last administered on at 05:29; Start 01/26/18 at 06:00 Fosfomycin Tromethamine (Monurol) 3 gm 1X ONCE PO Last administered on at 18:03; Start 01/25/18 at 16:00; Stop 01/25/18 at 16:01; Status DC Mirtazapine (Remeron) 7.5 mg QHS PO Last administered on 01/26/18at 20:06; Start 01/26/18 at 21:00 Active Scripts Active Reported Vitamin D3 (Cholecalciferol (Vitamin D3)) 1,000 Unit Tablet 1,000 Unit PO EVERY FRI,WED,FRI Vitamin B-12 (Cyanocobalamin (Vitamin B-12)) 1,000 Mcg Tablet 1,000 Mcg PO DAILY Tylenol (Acetaminophen) 325 Mg Tablet 650 Mg PO PRN Q4HRS PRN Systane 0.3-0.4% Eye Drops (Propylene Glycol/Peg 400) 15 Ml Drops 1 Drop OU PRN PRN Synthroid (Levothyroxine Sodium) 50 Mcg Tablet 50 Mcg PO DAILYAC Seroquel (Quetiapine Fumarate) 50 Mg Tablet 50 Mg PO TID Klor-Con M20 (Potassium Chloride) 20 Meq Tab.er.prt 20 Meq PO DAILY Naprosyn (Naproxen) 500 Mg Tablet 500 Mg PO DAILY Miralax (Polyethylene Glycol 3350) 17 Gm Powd.pack 17 Gm PO PRN Q24HRS PRN Magnesium Oxide 400 Mg Tablet 400 Mg PO DAILY Lasix (Furosemide) 20 Mg Tablet 20 Mg PO DAILY Ipratropium [place] 0.2 Mg/1 Ml Solution 0.2 Mg IH PRN Q4HRS PRN Garlic 1,000 Mg Capsule 2,000 Mg PO DAILY Fish Oil 1,000 Mg Capsule ([place]-3 Fatty Acids/Fish Oil) 1 Each Capsule 1 Each PO DAILY Duoneb 0.5-3(2.5) Mg/3 Ml (Albuterol/Ipratropium) 3 Ml Ampul.neb 3 Ml NEB PRN QID PRN Diltiazem 24HR Cd (Diltiazem Hcl) 120 Mg Cap.er.24h 120 Mg PO DAILY Culturelle (Lactobacillus Rhamnosus Gg) 1 Each Capsule 1 Each PO DAILY Carvedilol 3.125 Mg Tablet 3.125 Mg PO DAILY Ativan (Lorazepam) 0.5 Mg Tablet 0.5 Mg PO PRN Q4HRS PRN Ativan (Lorazepam) 0.5 Mg Tablet 0.5 Mg PO HS Aspirin 325 Mg Tablet 325 Mg PO DAILY Amiodarone Hcl 200 Mg Tablet 200 Mg PO DAILY Janiya Allergy (Fexofenadine Hcl) 180 Mg Tablet 180 Mg PO PRN DAILY PRN I have reviewed the current psychotropics carefully including drug interactions. Risk benefit ratio favors no change other than as noted in my dictated progress note. Diagnosis: Problems: (1) Anxiety disorder (2) Dementia in Alzheimer's disease with delusions (3) Dementia in Alzheimer's disease with depression (4) Dementia, vascular, with delusions (5) Dementia, vascular, with depression (6) Impulse control disorder SANDER RASMUSSEN MD Jan 26, 2018 20:54
[2018-01-26] MEDS ORDERED: MIRTAZAPINE 7.5 MG TABLET. PO SCH (21:00)
--- NOTE | 2018-01-26 21:54 | PN ---
DATE: 01/24/2018 This late entry 01/24/2018 covers elements not covered in my initial note 01/24/2018. SUBJECTIVE: Met with the patient in the evening. Overall, the patient remains confused, anxious, restless, wanting to get back home, wants to start walking back to [place]. She slept 5-1/2 hours. REVIEW OF SYSTEMS: No CV, , pulmonary, eye, ENT system symptoms on review. MENTAL STATUS EXAM: Oriented to herself. Insight, judgment, recent and remote memory, attention, concentration, fund of knowledge poor, consistent with her diagnosis mentioned in my initial note, major neurocognitive disorder, Alzheimer, vascular with delusion, depression, behavioral disturbance. PLAN: Continue psychotropics from initial note. She is on Zoloft 25 mg 3 times a day. We will consolidate this to 75 mg at bedtime. MAN Bridget RASMUSSEN MD DR: CONCETTA/hazel JOB#: [id number] / [id number]
[2018-01-27 06:12] VITALS: BP 108/51
[2018-01-27] MEDS: ASPIRIN 325 MG TABLET PO SCH (08:03)
[2018-01-27] MEDS: AMIODARONE HCL 200 MG TABLET PO SCH ×2 (08:04→08:32)
[2018-01-27] MEDS: OMEGA-3 FATTY ACIDS/FISH OIL 1,000 MG CAPSULE. PO SCH (08:04)
[2018-01-27] MEDS: LEVOTHYROXINE 75 MCG TABLET PO SCH (08:04)
[2018-01-27] MEDS: LACTOBACILLUS RHAMNOSUS GG 1 CAPSULE. PO SCH (08:04)
[2018-01-27] MEDS: POTASSIUM CHLORIDE 20 MEQ TABLET.ER. PO SCH (08:04)
[2018-01-27] MEDS: CARVEDILOL 3.125 MG TABLET PO SCH (08:07)
[2018-01-27] MEDS: FUROSEMIDE 20 MG TABLET PO SCH (08:07)
[2018-01-27] MEDS: MAGNESIUM OXIDE 400 MG TABLET PO SCH (08:07)
[2018-01-27] MEDS: CYANOCOBALAMIN (VITAMIN B-12) 1,000 MCG TABLET. PO SCH (08:08)
[2018-01-27] MEDS: QUEtiapine 50 MG TABLET. PO SCH ×3 (08:08→19:42)
[2018-01-27] MEDS: SERTRALINE 50 MG TABLET. PO SCH (08:09)
[2018-01-27] MEDS ORDERED: NAPROXEN 500 MG TABLET PO ONE (08:30)
--- NOTE | 2018-01-27 10:49 | PN ---
DATE: 01/25/2018 This late entry 01/25/2018 covers elements not covered in my initial note 01/25/2018. Met with the patient in the afternoon. The patient was quite angry, agitated, previous evening, received Zyprexa p.r.n. Daughter visited him on 01/25/2018. UA Enterococcus faecalis, defer to Dr. Brady. REVIEW OF SYSTEMS: No CV, , pulmonary, eye, ENT system symptoms on review. Reliability poor. MENTAL STATUS EXAM: Oriented to herself. Insight, judgment, recent and remote memory, attention, concentration, fund of knowledge poor, consistent with her diagnosis mentioned in my initial note. PLAN: Continue current psychotropics. Adjust as clinically indicated. MAN Bridget RASMUSSEN MD DR: CONCETTA/hazel JOB#: [id number] / [id number]
[2018-01-27] MEDS: CHOLECALCIFEROL (VITAMIN D3) 50,000 UNIT CAPSULE PO SCH (13:53)
[2018-01-27 16:59] VITALS: BP 162/72
[2018-01-27] MEDS: LORazepam 0.5 MG TABLET PO SCH (19:41)
[2018-01-27] MEDS: MIRTAZAPINE 15 MG TABLET PO SCH (19:43)
--- NOTE | 2018-01-27 20:57 | PDOC ---
Exam Note: Aakash Note: Please also refer to the separate dictated note~for this date of service dictated separately.~Patient seen individually. Discussed the patient with Nursing staff reviewed the chart.~Reviewed interim history and current functioning. Reviewed vital signs,~Labs/ Radiology~and current medications noted below. Continue current treatment with the changes noted in the dictated addendum note Assessment: Vital Signs: Vital Signs Date Time Temp Pulse Resp B/P (MAP) Pulse Ox O2 Delivery O2 Flow Rate FiO2 01/27/18 16:59 97.0 51 18 162/72 (102) 98 01/26/18 16:44 Room Air I&O Intake and Output 01/27/18 07:00 Intake Total 1060 ml Balance 1060 ml Intake Oral 1060 ml Current Medications: Meds: Current Medications Acetaminophen (Tylenol) 650 mg PRN Q6HRS PRN PO PAIN / TEMP; Start 01/22/18 at 21:30; Stop 01/22/18 at 22:23; Status DC Multi-Ingredient Ointment (Analgesic [place]) 1 morenita PRN QID PRN TP MUSCLE PAIN; Start 01/22/18 at 21:30 Al Hydroxide/Mg Hydroxide (Mylanta Plus Xs) 15 ml PRN AFTMEALHC PRN PO DYSPEPSIA; Start 01/22/18 at 21:30 Magnesium Hydroxide (Milk Of Magnesia) 2,400 mg PRN QHS PRN PO CONSTIPATION; Start 01/22/18 at 21:30 Lorazepam (Ativan) 0.5 mg QHS PO Last administered on 01/27/18at 19:41; Start at 22:30 Lorazepam (Ativan) 0.5 mg PRN Q4HRS PRN PO ANXIETY / AGITATION Last administered on 01/23/18at 09:02; Start 01/22/18 at 22:30 Quetiapine Fumarate (SEROquel) 50 mg TID PO Last administered on 01/27/18at 19:42 ; Start 01/22/18 at 22:30 Acetaminophen (Tylenol) 650 mg PRN Q4HRS PRN PO PAIN; Start 01/22/18 at 22:15; Stop 01/22/18 at 22:24; Status DC Aspirin ([place] Aspirin) 325 mg DAILY PO Last administered on 01/27/18at 08:03; Start 01/23/18 at 09:00 Vitamin D (Vitamin D3) 1,000 unit QMWF PO Last administered on 01/26/18 10:44; Start 01/23/18 at 16:00; Stop 01/27/18 at 13:40; Status DC Cyanocobalamin (Vitamin B-12) 1,000 mcg DAILY PO Last administered on 01/27/18 08:08; Start 01/23/18 at 09:00 Diltiazem HCl (Cardizem 24hr Cd) 120 mg DAILY PO Last administered on 01/24/18 07:57; Start 01/23/18 at 09:00; Stop 01/25/18 at 15:15; Status DC Furosemide (Lasix) 20 mg DAILY PO Last administered on 01/27/18 08:07; Start at 09:00 Ipratropium [place] (Atrovent) 0.2 mg PRN Q4HRS PRN IH SHORTNESS OF BREATH; Start 01/22/18 at 22:15 Albuterol/ Ipratropium (Duoneb) 3 ml PRN QID PRN NEB SHORTNESS OF BREATH; Start 01/22/18 at 22:15 Fish Oil (Fish Oil) 1,000 mg DAILY PO Last administered on 01/27/18 08:04; Start 01/23/18 at 09:00 Potassium Chloride (Klor-Con) 20 meq DAILY PO Last administered on 01/27/18 08: 04; Start 01/23/18 at 09:00 Amiodarone HCl (Cordarone) 200 mg DAILY PO Last administered on 01/26/18 10:46 ; Start 01/23/18 at 09:00 Carvedilol (Coreg) 3.125 mg DAILY PO Last administered on 01/27/18 08:07; Start 01/23/18 at 09:00 Cetirizine HCl (ZyrTEC) 10 mg PRN DAILY PRN PO ALLERGIES Last administered on 08:45; Start 01/23/18 at 09:00 Non-Formulary Medication (Garlic ) 2,000 mg DAILY PO ; Start 01/23/18 at 09:00; Stop 01/23/18 at 09:00; Status DC Lactobacillus Rhamnosus (Culturelle) 1 cap DAILY PO Last administered on 6/5/ 18at 08:04; Start 01/23/18 at 09:00 Levothyroxine Sodium (Synthroid) 50 mcg DAILY07 PO Last administered on at 05:46; Start 01/23/18 at 07:00; Stop 01/23/18 at 14:03; Status DC Magnesium Oxide (Magnesium Oxide) 400 mg DAILY PO Last administered on at 08:07; Start 01/23/18 at 09:00 Naproxen (Naprosyn) 500 mg DAILY PO Last administered on 01/26/18at 10:44; Start 01/23/18 at 09:00 Polyethylene Glycol (miraLAX) 17 gm PRN DAILY PRN PO CONSTIPATION; Start at 09:00 Artificial Tears (Refresh Classic) 1 drop PRN DAILY PRN OU DRY EYE; Start 01/22 at 22:45 Acetaminophen (Tylenol) 650 mg PRN Q4HRS PRN PO PAIN / TEMP; Start 01/22/18 at 22:30 Levothyroxine Sodium (Synthroid) 50 mcg DAILY06 PO Last administered on at 06:04; Start 01/24/18 at 06:00; Stop 01/25/18 at 15:10; Status DC Sertraline HCl (Zoloft) 25 mg DAILY PO Last administered on 01/26/18at 10:44; Start 01/24/18 at 09:00; Stop 01/27/18 at 08:59; Status DC Sertraline HCl (Zoloft) 50 mg DAILY PO Last administered on 01/27/18at 08:09; Start 01/27/18 at 09:00 Olanzapine (ZyPREXA ZYDIS) 2.5 mg PRN Q2HR PRN PO PSYCHOSIS Last administered on 01/25/18at 22:19; Start 01/24/18 at 22:00 Levothyroxine Sodium (Synthroid) 75 mcg DAILY06 PO Last administered on at 08:04; Start 01/26/18 at 06:00 Fosfomycin Tromethamine (Monurol) 3 gm 1X ONCE PO Last administered on at 18:03; Start 01/25/18 at 16:00; Stop 01/25/18 at 16:01; Status DC Mirtazapine (Remeron) 7.5 mg QHS PO Last administered on 01/26/18at 20:06; Start 01/26/18 at 21:00; Stop 01/27/18 at 18:49; Status DC Naproxen (Naprosyn) 500 mg 1X ONCE PO Last administered on 01/27/18at 08:10; Start 01/27/18 at 08:30; Stop 01/27/18 at 08:32; Status DC Vitamin D (Vitamin D3) 50,000 unit WEEKLY PO Last administered on 01/27/18at 13: 53; Start 01/27/18 at 13:30 Mirtazapine (Remeron) 15 mg QHS PO Last administered on 01/27/18at 19:43; Start 01/27/18 at 21:00 Active Scripts Active Reported Vitamin D3 (Cholecalciferol (Vitamin D3)) 1,000 Unit Tablet 1,000 Unit PO EVERY FRI,WED,FRI Vitamin B-12 (Cyanocobalamin (Vitamin B-12)) 1,000 Mcg Tablet 1,000 Mcg PO DAILY Tylenol (Acetaminophen) 325 Mg Tablet 650 Mg PO PRN Q4HRS PRN Systane 0.3-0.4% Eye Drops (Propylene Glycol/Peg 400) 15 Ml Drops 1 Drop OU PRN PRN Synthroid (Levothyroxine Sodium) 50 Mcg Tablet 50 Mcg PO DAILYAC Seroquel (Quetiapine Fumarate) 50 Mg Tablet 50 Mg PO TID Klor-Con M20 (Potassium Chloride) 20 Meq Tab.er.prt 20 Meq PO DAILY Naprosyn (Naproxen) 500 Mg Tablet 500 Mg PO DAILY Miralax (Polyethylene Glycol 3350) 17 Gm Powd.pack 17 Gm PO PRN Q24HRS PRN Magnesium Oxide 400 Mg Tablet 400 Mg PO DAILY Lasix (Furosemide) 20 Mg Tablet 20 Mg PO DAILY Ipratropium [place] 0.2 Mg/1 Ml Solution 0.2 Mg IH PRN Q4HRS PRN Garlic 1,000 Mg Capsule 2,000 Mg PO DAILY Fish Oil 1,000 Mg Capsule ([place]-3 Fatty Acids/Fish Oil) 1 Each Capsule 1 Each PO DAILY Duoneb 0.5-3(2.5) Mg/3 Ml (Albuterol/Ipratropium) 3 Ml Ampul.neb 3 Ml NEB PRN QID PRN Diltiazem 24HR Cd (Diltiazem Hcl) 120 Mg Cap.er.24h 120 Mg PO DAILY Culturelle (Lactobacillus Rhamnosus Gg) 1 Each Capsule 1 Each PO DAILY Carvedilol 3.125 Mg Tablet 3.125 Mg PO DAILY Ativan (Lorazepam) 0.5 Mg Tablet 0.5 Mg PO PRN Q4HRS PRN Ativan (Lorazepam) 0.5 Mg Tablet 0.5 Mg PO HS Aspirin 325 Mg Tablet 325 Mg PO DAILY Amiodarone Hcl 200 Mg Tablet 200 Mg PO DAILY Janiya Allergy (Fexofenadine Hcl) 180 Mg Tablet 180 Mg PO PRN DAILY PRN I have reviewed the current psychotropics carefully including drug interactions. Risk benefit ratio favors no change other than as noted in my dictated progress note. Diagnosis: Problems: (1) Anxiety disorder (2) Dementia in Alzheimer's disease with delusions (3) Dementia in Alzheimer's disease with depression (4) Dementia, vascular, with delusions (5) Dementia, vascular, with depression (6) Impulse control disorder SANDER RASMUSSEN MD Jan 27, 2018 20:57
--- NOTE | 2018-01-28 04:24 | PN ---
DATE: 01/26/2018 This is a late entry, 01/26/2018, covers the elements not covered in my initial note, 01/26/2018. I met with the patient in the afternoon. The patient slept 4 hours, quite disorganized, was hallucinating, delusional previous evening, getting into other patient's rooms, oblivious of what she was, and the way she was. The patient was pulling one of the other demented patient's from the patient's , wanted him next to her because she believed he was her . Early in the morning, 01/26/2018, she believes she was working at [employer]. REVIEW OF SYSTEMS: No CV, , pulmonary, eye, ENT system symptoms on review. Reliability poor. MENTAL STATUS EXAM: Oriented to herself. Insight, judgment, recent and remote memory, attention, concentration, fund of knowledge poor, consistent with her diagnosis as mentioned in my initial note. IMPRESSION: Major neurocognitive disorder, Alzheimer, vascular with delusion, depression, behavioral disturbance. PLAN: Continue current psychotropics, start Remeron 7.5 mg by mouth at bedtime for insomnia, anxiety, and agitation. MAN Bridget RASMUSSEN MD DR: CONCETTA/hazel JOB#: [id number] / [id number]
[2018-01-28] MEDS: LEVOTHYROXINE 75 MCG TABLET PO SCH (05:26)
[2018-01-28 06:38] VITALS: BP 176/79
[2018-01-28 07:42] LABS: BASO # 0.1 x10^3/uL (0.0-0.2); BASO % 1 % (0-3); EOS # 0.2 x10^3/uL (0.0-0.7); EOS % 5 % (0-3); HEMATOCRIT 38.9 % (36.0-47.0); HEMOGLOBIN 13.1 g/dL (12.0-15.5); LYMPH # 1.2 x10^3/uL (1.0-4.8); LYMPH % 25 % (24-48); MEAN CORPUSCULAR HEMOGLOBIN 32 pg (25-35); MEAN CORPUSCULAR HGB CONC 34 g/dL (31-37); MEAN CORPUSCULAR VOLUME 94 fL (79-100); MONO # 0.4 x10^3/uL (0.0-1.1); MONO % 9 % (0-9); NEUT # 2.9 x10^3uL (1.8-7.7); NEUT % 61 % (31-73); PLATELET COUNT 241 x10^3/uL (140-400); RED BLOOD COUNT 4.16 x10^6/uL (3.50-5.40); RED CELL DISTRIBUTION WIDTH 14.3 % (11.5-14.5); WHITE BLOOD COUNT 4.8 x10^3/uL (4.0-11.0)
[2018-01-28 08:05] LABS: ALBUMIN 3.8 g/dL (3.4-5.0); CALCIUM 8.9 mg/dL (8.5-10.1); CREATININE 1.4 mg/dL (0.6-1.0); GFR 36.1; MAGNESIUM 2.5 mg/dL (1.8-2.4); POTASSIUM 4.3 mmol/L (3.5-5.1); TOTAL BILIRUBIN 0.6 mg/dL (0.2-1.0); TOTAL PROTEIN 7.8 g/dL (6.4-8.2)
[2018-01-28] MEDS: MAGNESIUM OXIDE 400 MG TABLET PO SCH (08:59)
[2018-01-28] MEDS: LACTOBACILLUS RHAMNOSUS GG 1 CAPSULE. PO SCH (09:00)
[2018-01-28] MEDS: ASPIRIN 325 MG TABLET PO SCH ×2 (09:00→09:01)
[2018-01-28] MEDS: CYANOCOBALAMIN (VITAMIN B-12) 1,000 MCG TABLET. PO SCH (09:00)
[2018-01-28] MEDS: POTASSIUM CHLORIDE 20 MEQ TABLET.ER. PO SCH (09:00)
[2018-01-28] MEDS: NAPROXEN 500 MG TABLET PO SCH (09:00)
[2018-01-28] MEDS: AMIODARONE HCL 200 MG TABLET PO SCH (09:00)
[2018-01-28] MEDS: QUEtiapine 50 MG TABLET. PO SCH ×3 (09:00→19:34)
[2018-01-28] MEDS: FUROSEMIDE 20 MG TABLET PO SCH (09:01)
[2018-01-28] MEDS: SERTRALINE 50 MG TABLET. PO SCH (09:01)
[2018-01-28] MEDS: OMEGA-3 FATTY ACIDS/FISH OIL 1,000 MG CAPSULE. PO SCH (09:01)
[2018-01-28] MEDS: CARVEDILOL 3.125 MG TABLET PO SCH (09:01)
--- NOTE | 2018-01-28 09:47 | PN ---
DATE: 01/27/2018 This late entry 01/27/2018 covers elements not covered in my initial note 01/27/2018. I met with the patient in the evening. The patient slept 1-1/2 hours. Previous evening she was quite agitated, getting into the room of other patients. During the day on 01/27/2018, refusing medications, "they are trying to kill me." Daughter and son-in-law visited. She was agitated in the evening. Believes men are beating people, gets more confused, paranoid in the evening. REVIEW OF SYSTEMS: No CV, , pulmonary, eye, ENT system symptoms on review. Reliability poor. Anxious, restless, constantly moving as I met with her. MENTAL STATUS EXAM: Oriented to herself. Insight, judgment, recent and remote memory, attention, concentration, fund of knowledge poor consistent with her diagnosis mentioned in my initial note. PLAN: Increase Remeron from 7.5 mg at bedtime to 15 mg at bedtime, and she slept just 4-1/2 hours previous evening. Continue rest unchanged from initial note. MAN Bridget RASMUSSEN MD DR: CONCETTA/hazel JOB#: [id number] / [id number]
[2018-01-28] MEDS: LORazepam 0.5 MG TABLET PO PRN (12:03)
[2018-01-28 16:20] VITALS: BP 108/51
[2018-01-28] MEDS: LORazepam 0.5 MG TABLET PO SCH (19:34)
[2018-01-28] MEDS: MIRTAZAPINE 15 MG TABLET PO SCH (19:34)
--- NOTE | 2018-01-28 20:51 | PDOC ---
Exam Note: Aakash Note: Please also refer to the separate dictated note~for this date of service dictated separately.~Patient seen individually. Discussed the patient with Nursing staff reviewed the chart.~Reviewed interim history and current functioning. Reviewed vital signs,~Labs/ Radiology~and current medications noted below. Continue current treatment with the changes noted in the dictated addendum note Assessment: Vital Signs: Vital Signs Date Time Temp Pulse Resp B/P (MAP) Pulse Ox O2 Delivery O2 Flow Rate FiO2 01/28/18 16:20 97.7 48 22 108/51 (70) 97 01/26/18 16:44 Room Air I&O Intake and Output 01/28/18 07:00 Intake Total 720 ml Balance 720 ml Intake Oral 720 ml Labs: Laboratory Tests Test 01/28/18 07:30 White Blood Count 4.8 x10^3/uL (4.0-11.0) Red Blood Count 4.16 x10^6/uL (3.50-5.40) Hemoglobin 13.1 g/dL (12.0-15.5) Hematocrit 38.9 % (36.0-47.0) Mean Corpuscular Volume 94 fL (79-100) Mean Corpuscular Hemoglobin 32 pg (25-35) Mean Corpuscular Hemoglobin Concent 34 g/dL (31-37) Red Cell Distribution Width 14.3 % (11.5-14.5) Platelet Count 241 x10^3/uL (140-400) Neutrophils (%) (Auto) 61 % (31-73) Lymphocytes (%) (Auto) 25 % (24-48) Monocytes (%) (Auto) 9 % (0-9) Eosinophils (%) (Auto) 5 % (0-3) H Basophils (%) (Auto) 1 % (0-3) Neutrophils # (Auto) 2.9 x10^3uL (1.8-7.7) Lymphocytes # (Auto) 1.2 x10^3/uL (1.0-4.8) Monocytes # (Auto) 0.4 x10^3/uL (0.0-1.1) Eosinophils # (Auto) 0.2 x10^3/uL (0.0-0.7) Basophils # (Auto) 0.1 x10^3/uL (0.0-0.2) Sodium Level 139 mmol/L (136-145) Potassium Level 4.3 mmol/L (3.5-5.1) Chloride Level 104 mmol/L (98-107) Carbon Dioxide Level 28 mmol/L (21-32) Anion Gap 7 (6-14) Blood Urea Nitrogen 19 mg/dL (7-20) Creatinine 1.4 mg/dL (0.6-1.0) H Estimated GFR (Cockcroft-Gault) 36.1 BUN/Creatinine Ratio 14 (6-20) Glucose Level 82 mg/dL (70-99) Calcium Level 8.9 mg/dL (8.5-10.1) Magnesium Level 2.5 mg/dL (1.8-2.4) H Total Bilirubin 0.6 mg/dL (0.2-1.0) Aspartate Amino Transferase (AST) 26 U/L (15-37) Alanine Aminotransferase (ALT) 19 U/L (14-59) Alkaline Phosphatase 103 U/L (46-116) Total Protein 7.8 g/dL (6.4-8.2) Albumin 3.8 g/dL (3.4-5.0) Albumin/Globulin Ratio 1.0 (1.0-1.7) Current Medications: Meds: Current Medications Acetaminophen (Tylenol) 650 mg PRN Q6HRS PRN PO PAIN / TEMP; Start 01/22/18 at 21:30; Stop 01/22/18 at 22:23; Status DC Multi-Ingredient Ointment (Analgesic [place]) 1 morenita PRN QID PRN TP MUSCLE PAIN; Start 01/22/18 at 21:30 Al Hydroxide/Mg Hydroxide (Mylanta Plus Xs) 15 ml PRN AFTMEALHC PRN PO DYSPEPSIA; Start 01/22/18 at 21:30 Magnesium Hydroxide (Milk Of Magnesia) 2,400 mg PRN QHS PRN PO CONSTIPATION; Start 01/22/18 at 21:30 Lorazepam (Ativan) 0.5 mg QHS PO Last administered on 01/28/18at 19:34; Start at 22:30 Lorazepam (Ativan) 0.5 mg PRN Q4HRS PRN PO ANXIETY / AGITATION Last administered on 01/28/18at 12:03; Start 01/22/18 at 22:30 Quetiapine Fumarate (SEROquel) 50 mg TID PO Last administered on 01/28/18 19:34 ; Start 01/22/18 at 22:30 Acetaminophen (Tylenol) 650 mg PRN Q4HRS PRN PO PAIN; Start 01/22/18 at 22:15; Stop 01/22/18 at 22:24; Status DC Aspirin ([place] Aspirin) 325 mg DAILY PO Last administered on 01/27/18 08:03; Start 01/23/18 at 09:00 Vitamin D (Vitamin D3) 1,000 unit QMWF PO Last administered on 01/26/18 10:44; Start 01/23/18 at 16:00; Stop 01/27/18 at 13:40; Status DC Cyanocobalamin (Vitamin B-12) 1,000 mcg DAILY PO Last administered on 01/28/18 09:00; Start 01/23/18 at 09:00 Diltiazem HCl (Cardizem 24hr Cd) 120 mg DAILY PO Last administered on 01/24/18 07:57; Start 01/23/18 at 09:00; Stop 01/25/18 at 15:15; Status DC Furosemide (Lasix) 20 mg DAILY PO Last administered on 01/28/18 09:01; Start at 09:00 Ipratropium [place] (Atrovent) 0.2 mg PRN Q4HRS PRN IH SHORTNESS OF BREATH; Start 01/22/18 at 22:15 Albuterol/ Ipratropium (Duoneb) 3 ml PRN QID PRN NEB SHORTNESS OF BREATH; Start 01/22/18 at 22:15 Fish Oil (Fish Oil) 1,000 mg DAILY PO Last administered on 01/28/18 09:01; Start 01/23/18 at 09:00 Potassium Chloride (Klor-Con) 20 meq DAILY PO Last administered on 01/28/18 09: 00; Start 01/23/18 at 09:00 Amiodarone HCl (Cordarone) 200 mg DAILY PO Last administered on 01/28/18 09:00 ; Start 01/23/18 at 09:00 Carvedilol (Coreg) 3.125 mg DAILY PO Last administered on 01/28/18 09:01; Start 01/23/18 at 09:00 Cetirizine HCl (ZyrTEC) 10 mg PRN DAILY PRN PO ALLERGIES Last administered on at 08:45; Start 01/23/18 at 09:00 Non-Formulary Medication (Garlic ) 2,000 mg DAILY PO ; Start 01/23/18 at 09:00; Stop 01/23/18 at 09:00; Status DC Lactobacillus Rhamnosus (Culturelle) 1 cap DAILY PO Last administered on at 09:00; Start 01/23/18 at 09:00 Levothyroxine Sodium (Synthroid) 50 mcg DAILY07 PO Last administered on at 05:46; Start 01/23/18 at 07:00; Stop 01/23/18 at 14:03; Status DC Magnesium Oxide (Magnesium Oxide) 400 mg DAILY PO Last administered on at 08:59; Start 01/23/18 at 09:00 Naproxen (Naprosyn) 500 mg DAILY PO Last administered on 01/26/18at 10:44; Start 01/23/18 at 09:00 Polyethylene Glycol (miraLAX) 17 gm PRN DAILY PRN PO CONSTIPATION; Start at 09:00 Artificial Tears (Refresh Classic) 1 drop PRN DAILY PRN OU DRY EYE; Start 01/22 at 22:45 Acetaminophen (Tylenol) 650 mg PRN Q4HRS PRN PO PAIN / TEMP; Start 01/22/18 at 22:30 Levothyroxine Sodium (Synthroid) 50 mcg DAILY06 PO Last administered on at 06:04; Start 01/24/18 at 06:00; Stop 01/25/18 at 15:10; Status DC Sertraline HCl (Zoloft) 25 mg DAILY PO Last administered on 01/26/18at 10:44; Start 01/24/18 at 09:00; Stop 01/27/18 at 08:59; Status DC Sertraline HCl (Zoloft) 50 mg DAILY PO Last administered on 01/28/18at 09:01; Start 01/27/18 at 09:00 Olanzapine (ZyPREXA ZYDIS) 2.5 mg PRN Q2HR PRN PO PSYCHOSIS Last administered on 01/25/18at 22:19; Start 01/24/18 at 22:00 Levothyroxine Sodium (Synthroid) 75 mcg DAILY06 PO Last administered on at 05:26; Start 01/26/18 at 06:00 Fosfomycin Tromethamine (Monurol) 3 gm 1X ONCE PO Last administered on at 18:03; Start 01/25/18 at 16:00; Stop 01/25/18 at 16:01; Status DC Mirtazapine (Remeron) 7.5 mg QHS PO Last administered on 01/26/18at 20:06; Start 01/26/18 at 21:00; Stop 01/27/18 at 18:49; Status DC Naproxen (Naprosyn) 500 mg 1X ONCE PO Last administered on 01/27/18at 08:10; Start 01/27/18 at 08:30; Stop 01/27/18 at 08:32; Status DC Vitamin D (Vitamin D3) 50,000 unit WEEKLY PO Last administered on 01/27/18at 13: 53; Start 01/27/18 at 13:30 Mirtazapine (Remeron) 15 mg QHS PO Last administered on 01/28/18at 19:34; Start 01/27/18 at 21:00 Trazodone HCl (Desyrel) 50 mg PRN QHS PRN PO INSOMNIA, MAY REPEAT X1; Start 01/28/18 at 18:30 Active Scripts Active Reported Vitamin D3 (Cholecalciferol (Vitamin D3)) 1,000 Unit Tablet 1,000 Unit PO EVERY FRI,WED,FRI Vitamin B-12 (Cyanocobalamin (Vitamin B-12)) 1,000 Mcg Tablet 1,000 Mcg PO DAILY Tylenol (Acetaminophen) 325 Mg Tablet 650 Mg PO PRN Q4HRS PRN Systane 0.3-0.4% Eye Drops (Propylene Glycol/Peg 400) 15 Ml Drops 1 Drop OU PRN PRN Synthroid (Levothyroxine Sodium) 50 Mcg Tablet 50 Mcg PO DAILYAC Seroquel (Quetiapine Fumarate) 50 Mg Tablet 50 Mg PO TID Klor-Con M20 (Potassium Chloride) 20 Meq Tab.er.prt 20 Meq PO DAILY Naprosyn (Naproxen) 500 Mg Tablet 500 Mg PO DAILY Miralax (Polyethylene Glycol 3350) 17 Gm Powd.pack 17 Gm PO PRN Q24HRS PRN Magnesium Oxide 400 Mg Tablet 400 Mg PO DAILY Lasix (Furosemide) 20 Mg Tablet 20 Mg PO DAILY Ipratropium [place] 0.2 Mg/1 Ml Solution 0.2 Mg IH PRN Q4HRS PRN Garlic 1,000 Mg Capsule 2,000 Mg PO DAILY Fish Oil 1,000 Mg Capsule ([place]-3 Fatty Acids/Fish Oil) 1 Each Capsule 1 Each PO DAILY Duoneb 0.5-3(2.5) Mg/3 Ml (Albuterol/Ipratropium) 3 Ml Ampul.neb 3 Ml NEB PRN QID PRN Diltiazem 24HR Cd (Diltiazem Hcl) 120 Mg Cap.er.24h 120 Mg PO DAILY Culturelle (Lactobacillus Rhamnosus Gg) 1 Each Capsule 1 Each PO DAILY Carvedilol 3.125 Mg Tablet 3.125 Mg PO DAILY Ativan (Lorazepam) 0.5 Mg Tablet 0.5 Mg PO PRN Q4HRS PRN Ativan (Lorazepam) 0.5 Mg Tablet 0.5 Mg PO HS Aspirin 325 Mg Tablet 325 Mg PO DAILY Amiodarone Hcl 200 Mg Tablet 200 Mg PO DAILY Janiya Allergy (Fexofenadine Hcl) 180 Mg Tablet 180 Mg PO PRN DAILY PRN I have reviewed the current psychotropics carefully including drug interactions. Risk benefit ratio favors no change other than as noted in my dictated progress note. Diagnosis: Problems: (1) Anxiety disorder (2) Dementia in Alzheimer's disease with delusions (3) Dementia in Alzheimer's disease with depression (4) Dementia, vascular, with delusions (5) Dementia, vascular, with depression (6) Impulse control disorder SANDER RASMUSSEN MD Jan 28, 2018 20:51
[2018-01-28] MEDS: traZODone 50 MG TABLET. PO PRN (22:47)
[2018-01-29] MEDS: traZODone 50 MG TABLET. PO PRN ×3 (02:15→22:10)
[2018-01-29] MEDS: LORazepam 0.5 MG TABLET PO PRN (02:15)
[2018-01-29] MEDS: LEVOTHYROXINE 75 MCG TABLET PO SCH (05:45)
[2018-01-29 06:32] VITALS: BP 167/82
[2018-01-29] MEDS: QUEtiapine 50 MG TABLET. PO SCH ×3 (09:37→20:05)
[2018-01-29] MEDS: ASPIRIN 325 MG TABLET PO SCH (09:38)
[2018-01-29] MEDS: OMEGA-3 FATTY ACIDS/FISH OIL 1,000 MG CAPSULE. PO SCH (09:38)
[2018-01-29] MEDS: SERTRALINE 50 MG TABLET. PO SCH (09:38)
[2018-01-29] MEDS: MAGNESIUM OXIDE 400 MG TABLET PO SCH (09:38)
[2018-01-29] MEDS: AMIODARONE HCL 200 MG TABLET PO SCH (09:38)
[2018-01-29] MEDS: CYANOCOBALAMIN (VITAMIN B-12) 1,000 MCG TABLET. PO SCH (09:38)
[2018-01-29] MEDS: LACTOBACILLUS RHAMNOSUS GG 1 CAPSULE. PO SCH (09:38)
[2018-01-29] MEDS: POTASSIUM CHLORIDE 20 MEQ TABLET.ER. PO SCH (09:39)
[2018-01-29] MEDS: CARVEDILOL 3.125 MG TABLET PO SCH (09:39)
[2018-01-29] MEDS: FUROSEMIDE 20 MG TABLET PO SCH (09:39)
[2018-01-29] MEDS: NAPROXEN 500 MG TABLET PO SCH (09:39)
[2018-01-29 16:25] VITALS: BP 137/98
[2018-01-29] MEDS: LORazepam 0.5 MG TABLET PO SCH (20:05)
[2018-01-29] MEDS: MIRTAZAPINE 15 MG TABLET PO SCH (20:05)
--- NOTE | 2018-01-29 22:31 | PDOC ---
Exam Note: Aakash Note: Please also refer to the separate dictated note~for this date of service dictated separately.~Patient seen individually. Discussed the patient with Nursing staff reviewed the chart.~Reviewed interim history and current functioning. Reviewed vital signs,~Labs/ Radiology~and current medications noted below. Continue current treatment with the changes noted in the dictated addendum note Assessment: Vital Signs: Vital Signs Date Time Temp Pulse Resp B/P (MAP) Pulse Ox O2 Delivery O2 Flow Rate FiO2 01/29/18 16:25 97.5 65 22 137/98 (111) 95 Room Air I&O Intake and Output 01/29/18 07:00 Intake Total 1200 ml Balance 1200 ml Intake Oral 1200 ml Current Medications: Meds: Current Medications Acetaminophen (Tylenol) 650 mg PRN Q6HRS PRN PO PAIN / TEMP; Start 01/22/18 at 21:30; Stop 01/22/18 at 22:23; Status DC Multi-Ingredient Ointment (Analgesic [place]) 1 morenita PRN QID PRN TP MUSCLE PAIN; Start 01/22/18 at 21:30 Al Hydroxide/Mg Hydroxide (Mylanta Plus Xs) 15 ml PRN AFTMEALHC PRN PO DYSPEPSIA; Start 01/22/18 at 21:30 Magnesium Hydroxide (Milk Of Magnesia) 2,400 mg PRN QHS PRN PO CONSTIPATION; Start 01/22/18 at 21:30 Lorazepam (Ativan) 0.5 mg QHS PO Last administered on 01/29/18at 20:05; Start at 22:30 Lorazepam (Ativan) 0.5 mg PRN Q4HRS PRN PO ANXIETY / AGITATION Last administered on 01/29/18at 02:15; Start 01/22/18 at 22:30 Quetiapine Fumarate (SEROquel) 50 mg TID PO Last administered on 01/29/18at 20:05 ; Start 01/22/18 at 22:30 Acetaminophen (Tylenol) 650 mg PRN Q4HRS PRN PO PAIN; Start 01/22/18 at 22:15; Stop 01/22/18 at 22:24; Status DC Aspirin (Galina Aspirin) 325 mg DAILY PO Last administered on 01/29/18at 09:38; Start 01/23/18 at 09:00 Vitamin D (Vitamin D3) 1,000 unit QMWF PO Last administered on 01/26/18 10:44; Start 01/23/18 at 16:00; Stop 01/27/18 at 13:40; Status DC Cyanocobalamin (Vitamin B-12) 1,000 mcg DAILY PO Last administered on 01/29/18 09:38; Start 01/23/18 at 09:00 Diltiazem HCl (Cardizem 24hr Cd) 120 mg DAILY PO Last administered on 01/24/18 07:57; Start 01/23/18 at 09:00; Stop 01/25/18 at 15:15; Status DC Furosemide (Lasix) 20 mg DAILY PO Last administered on 01/29/18 09:39; Start at 09:00 Ipratropium [place] (Atrovent) 0.2 mg PRN Q4HRS PRN IH SHORTNESS OF BREATH; Start 01/22/18 at 22:15 Albuterol/ Ipratropium (Duoneb) 3 ml PRN QID PRN NEB SHORTNESS OF BREATH; Start 01/22/18 at 22:15 Fish Oil (Fish Oil) 1,000 mg DAILY PO Last administered on 01/29/18 09:38; Start 01/23/18 at 09:00 Potassium Chloride (Klor-Con) 20 meq DAILY PO Last administered on 01/29/18 09: 39; Start 01/23/18 at 09:00 Amiodarone HCl (Cordarone) 200 mg DAILY PO Last administered on 01/29/18 09:38 ; Start 01/23/18 at 09:00 Carvedilol (Coreg) 3.125 mg DAILY PO Last administered on 01/29/18 09:39; Start 01/23/18 at 09:00 Cetirizine HCl (ZyrTEC) 10 mg PRN DAILY PRN PO ALLERGIES Last administered on 08:45; Start 01/23/18 at 09:00 Non-Formulary Medication (Garlic ) 2,000 mg DAILY PO ; Start 01/23/18 at 09:00; Stop 01/23/18 at 09:00; Status DC Lactobacillus Rhamnosus (Culturelle) 1 cap DAILY PO Last administered on 09:38; Start 01/23/18 at 09:00 Levothyroxine Sodium (Synthroid) 50 mcg DAILY07 PO Last administered on at 05:46; Start 01/23/18 at 07:00; Stop 01/23/18 at 14:03; Status DC Magnesium Oxide (Magnesium Oxide) 400 mg DAILY PO Last administered on at 09:38; Start 01/23/18 at 09:00 Naproxen (Naprosyn) 500 mg DAILY PO Last administered on 01/29/18at 09:39; Start 01/23/18 at 09:00 Polyethylene Glycol (miraLAX) 17 gm PRN DAILY PRN PO CONSTIPATION; Start at 09:00 Artificial Tears (Refresh Classic) 1 drop PRN DAILY PRN OU DRY EYE; Start 01/22 at 22:45 Acetaminophen (Tylenol) 650 mg PRN Q4HRS PRN PO PAIN / TEMP; Start 01/22/18 at 22:30 Levothyroxine Sodium (Synthroid) 50 mcg DAILY06 PO Last administered on at 06:04; Start 01/24/18 at 06:00; Stop 01/25/18 at 15:10; Status DC Sertraline HCl (Zoloft) 25 mg DAILY PO Last administered on 01/26/18at 10:44; Start 01/24/18 at 09:00; Stop 01/27/18 at 08:59; Status DC Sertraline HCl (Zoloft) 50 mg DAILY PO Last administered on 01/29/18at 09:38; Start 01/27/18 at 09:00 Olanzapine (ZyPREXA ZYDIS) 2.5 mg PRN Q2HR PRN PO PSYCHOSIS Last administered on 01/29/18at 22:13; Start 01/24/18 at 22:00 Levothyroxine Sodium (Synthroid) 75 mcg DAILY06 PO Last administered on at 05:45; Start 01/26/18 at 06:00 Fosfomycin Tromethamine (Monurol) 3 gm 1X ONCE PO Last administered on at 18:03; Start 01/25/18 at 16:00; Stop 01/25/18 at 16:01; Status DC Mirtazapine (Remeron) 7.5 mg QHS PO Last administered on 01/26/18 20:06; Start 01/26/18 at 21:00; Stop 01/27/18 at 18:49; Status DC Naproxen (Naprosyn) 500 mg 1X ONCE PO Last administered on 01/27/18 08:10; Start 01/27/18 at 08:30; Stop 01/27/18 at 08:32; Status DC Vitamin D (Vitamin D3) 50,000 unit WEEKLY PO Last administered on 01/27/18 13: 53; Start 01/27/18 at 13:30 Mirtazapine (Remeron) 15 mg QHS PO Last administered on 01/29/18 20:05; Start 01/27/18 at 21:00 Trazodone HCl (Desyrel) 50 mg PRN QHS PRN PO INSOMNIA, DECEMBER REPEAT X1 Last administered on 01/29/18 22:10; Start 01/28/18 at 18:30 Active Scripts Active Reported Vitamin D3 (Cholecalciferol (Vitamin D3)) 1,000 Unit Tablet 1,000 Unit PO EVERY FRI,FRI,FRI Vitamin B-12 (Cyanocobalamin (Vitamin B-12)) 1,000 Mcg Tablet 1,000 Mcg PO DAILY Tylenol (Acetaminophen) 325 Mg Tablet 650 Mg PO PRN Q4HRS PRN Systane 0.3-0.4% Eye Drops (Propylene Glycol/Peg 400) 15 Ml Drops 1 Drop OU PRN PRN Synthroid (Levothyroxine Sodium) 50 Mcg Tablet 50 Mcg PO DAILYAC Seroquel (Quetiapine Fumarate) 50 Mg Tablet 50 Mg PO TID Klor-Con M20 (Potassium Chloride) 20 Meq Tab.er.prt 20 Meq PO DAILY Naprosyn (Naproxen) 500 Mg Tablet 500 Mg PO DAILY Miralax (Polyethylene Glycol 3350) 17 Gm Powd.pack 17 Gm PO PRN Q24HRS PRN Magnesium Oxide 400 Mg Tablet 400 Mg PO DAILY Lasix (Furosemide) 20 Mg Tablet 20 Mg PO DAILY Ipratropium [place] 0.2 Mg/1 Ml Solution 0.2 Mg IH PRN Q4HRS PRN Garlic 1,000 Mg Capsule 2,000 Mg PO DAILY Fish Oil 1,000 Mg Capsule ([place]-3 Fatty Acids/Fish Oil) 1 Each Capsule 1 Each PO DAILY Duoneb 0.5-3(2.5) Mg/3 Ml (Albuterol/Ipratropium) 3 Ml Ampul.neb 3 Ml NEB PRN QID PRN Diltiazem 24HR Cd (Diltiazem Hcl) 120 Mg Cap.er.24h 120 Mg PO DAILY Culturelle (Lactobacillus Rhamnosus Gg) 1 Each Capsule 1 Each PO DAILY Carvedilol 3.125 Mg Tablet 3.125 Mg PO DAILY Ativan (Lorazepam) 0.5 Mg Tablet 0.5 Mg PO PRN Q4HRS PRN Ativan (Lorazepam) 0.5 Mg Tablet 0.5 Mg PO HS Aspirin 325 Mg Tablet 325 Mg PO DAILY Amiodarone Hcl 200 Mg Tablet 200 Mg PO DAILY Janiya Allergy (Fexofenadine Hcl) 180 Mg Tablet 180 Mg PO PRN DAILY PRN I have reviewed the current psychotropics carefully including drug interactions. Risk benefit ratio favors no change other than as noted in my dictated progress note. Diagnosis: Problems: (1) Anxiety disorder (2) Dementia in Alzheimer's disease with delusions (3) Dementia in Alzheimer's disease with depression (4) Dementia, vascular, with delusions (5) Dementia, vascular, with depression (6) Impulse control disorder SANDER RASMUSSEN MD Jan 29, 2018 22:31
[2018-01-30] MEDS: LEVOTHYROXINE 75 MCG TABLET PO SCH (05:38)
[2018-01-30 05:51] VITALS: BP 146/54
[2018-01-30] MEDS: SERTRALINE 50 MG TABLET. PO SCH (08:55)
[2018-01-30] MEDS: LACTOBACILLUS RHAMNOSUS GG 1 CAPSULE. PO SCH (08:55)
[2018-01-30] MEDS: NAPROXEN 500 MG TABLET PO SCH (08:55)
[2018-01-30] MEDS: CYANOCOBALAMIN (VITAMIN B-12) 1,000 MCG TABLET. PO SCH (08:55)
[2018-01-30] MEDS: OMEGA-3 FATTY ACIDS/FISH OIL 1,000 MG CAPSULE. PO SCH (08:55)
[2018-01-30] MEDS: FUROSEMIDE 20 MG TABLET PO SCH (08:56)
[2018-01-30] MEDS: POTASSIUM CHLORIDE 20 MEQ TABLET.ER. PO SCH (08:56)
[2018-01-30] MEDS: AMIODARONE HCL 200 MG TABLET PO SCH (08:56)
[2018-01-30] MEDS: CARVEDILOL 3.125 MG TABLET PO SCH (08:56)
[2018-01-30] MEDS: MAGNESIUM OXIDE 400 MG TABLET PO SCH (08:56)
[2018-01-30] MEDS: QUEtiapine 50 MG TABLET. PO SCH ×3 (08:57→19:47)
[2018-01-30] MEDS: ASPIRIN 325 MG TABLET PO SCH (08:57)
--- NOTE | 2018-01-30 14:10 | PN ---
DATE: 01/28/2018 This is a late entry for 01/28/2018 and covers elements not covered in my initial note of 01/28/2018. I met with the patient evening. The patient slept 4-1/2 hours, was yelling in the morning, confused, refused aspirin and Naprosyn, "get out of here." She is alert, oriented to herself. History from the daughter indicates that she was a" constant complainer" and anxious most of her life, uncle and sister had dementia. She is quite delusional, believes her is alive. REVIEW OF SYSTEMS: No CV, , pulmonary, eye, ENT system symptoms on review. Reliability poor. MENTAL STATUS EXAM: Oriented to herself. Insight, judgment, recent and remote memory, attention, concentration, fund of knowledge poor, consistent with her diagnosis. Mood and affect quite labile. LABORATORY DATA: Reviewed. IMPRESSION: Unchanged from initial note. PLAN: Add trazodone 50 mg at bedtime p.r.n., december repeat x 1. Continue rest unchanged. MAN Bridget RASMUSSEN MD DR: CONCETTA/hazel JOB#: [id number] / [id number]
[2018-01-30 15:57] VITALS: BP 160/73
[2018-01-30] MEDS: MIRTAZAPINE 15 MG TABLET PO SCH (19:47)
[2018-01-30] MEDS: LORazepam 0.5 MG TABLET PO SCH (19:48)
[2018-01-30] MEDS: traZODone 50 MG TABLET. PO PRN (19:49)
--- NOTE | 2018-01-30 20:38 | PN ---
DATE: 01/29/2018 This late entry for 01/29/2018 covers elements not covered in my initial note. SUBJECTIVE: I met with the patient in the evening and staffed at a treatment team meeting with the entire team in the morning and the patient's daughter, Ramya, attended this conference. 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 Previous night, she was crawling on the floor, yelling for Gilberto and Nikos and daddy, received PRNs. Daughter reported the patient has always been a night owl. REVIEW OF SYSTEMS: No CV, , pulmonary, eye, ENT system symptoms on review. Reliability poor. MENTAL STATUS EXAM: Oriented to herself. Insight, judgment, recent and remote memory, attention, concentration, fund of knowledge poor, consistent with her diagnosis from initial note. PLAN: Continue current psychotropics. Adjust further as clinically indicated. May need to increase Seroquel further. MAN Bridget RASMUSSEN MD DR: CONCETTA/hazel JOB#: [id number] / [id number]
--- NOTE | 2018-01-30 23:18 | PDOC ---
Exam Note: Aakash Note: Please also refer to the separate dictated note~for this date of service dictated separately.~Patient seen individually. Discussed the patient with Nursing staff reviewed the chart.~Reviewed interim history and current functioning. Reviewed vital signs,~Labs/ Radiology~and current medications noted below. Continue current treatment with the changes noted in the dictated addendum note Assessment: Vital Signs: Vital Signs Date Time Temp Pulse Resp B/P (MAP) Pulse Ox O2 Delivery O2 Flow Rate FiO2 01/30/18 15:57 97.6 63 18 160/73 (102) 97 01/29/18 16:25 Room Air I&O Intake and Output 01/30/18 07:00 Intake Total 1160 ml Balance 1160 ml Intake Oral 1160 ml Current Medications: Meds: Current Medications Acetaminophen (Tylenol) 650 mg PRN Q6HRS PRN PO PAIN / TEMP; Start 01/22/18 at 21:30; Stop 01/22/18 at 22:23; Status DC Multi-Ingredient Ointment (Analgesic [place]) 1 morenita PRN QID PRN TP MUSCLE PAIN; Start 01/22/18 at 21:30 Al Hydroxide/Mg Hydroxide (Mylanta Plus Xs) 15 ml PRN AFTMEALHC PRN PO DYSPEPSIA; Start 01/22/18 at 21:30 Magnesium Hydroxide (Milk Of Magnesia) 2,400 mg PRN QHS PRN PO CONSTIPATION; Start 01/22/18 at 21:30 Lorazepam (Ativan) 0.5 mg QHS PO Last administered on 01/30/18at 19:48; Start at 22:30 Lorazepam (Ativan) 0.5 mg PRN Q4HRS PRN PO ANXIETY / AGITATION Last administered on 01/29/18at 02:15; Start 01/22/18 at 22:30 Quetiapine Fumarate (SEROquel) 50 mg TID PO Last administered on 01/30/18at 19:47 ; Start 01/22/18 at 22:30 Acetaminophen (Tylenol) 650 mg PRN Q4HRS PRN PO PAIN; Start 01/22/18 at 22:15; Stop 01/22/18 at 22:24; Status DC Aspirin ([place] Aspirin) 325 mg DAILY PO Last administered on 01/30/18at 08:57; Start 01/23/18 at 09:00 Vitamin D (Vitamin D3) 1,000 unit QMWF PO Last administered on 01/26/18 10:44; Start 01/23/18 at 16:00; Stop 01/27/18 at 13:40; Status DC Cyanocobalamin (Vitamin B-12) 1,000 mcg DAILY PO Last administered on 01/30/18 08:55; Start 01/23/18 at 09:00 Diltiazem HCl (Cardizem 24hr Cd) 120 mg DAILY PO Last administered on 01/24/18 07:57; Start 01/23/18 at 09:00; Stop 01/25/18 at 15:15; Status DC Furosemide (Lasix) 20 mg DAILY PO Last administered on 01/30/18 08:56; Start at 09:00 Ipratropium [place] (Atrovent) 0.2 mg PRN Q4HRS PRN IH SHORTNESS OF BREATH; Start 01/22/18 at 22:15 Albuterol/ Ipratropium (Duoneb) 3 ml PRN QID PRN NEB SHORTNESS OF BREATH; Start 01/22/18 at 22:15 Fish Oil (Fish Oil) 1,000 mg DAILY PO Last administered on 01/30/18 08:55; Start 01/23/18 at 09:00 Potassium Chloride (Klor-Con) 20 meq DAILY PO Last administered on 01/30/18 08: 56; Start 01/23/18 at 09:00 Amiodarone HCl (Cordarone) 200 mg DAILY PO Last administered on 01/30/18 08:56 ; Start 01/23/18 at 09:00 Carvedilol (Coreg) 3.125 mg DAILY PO Last administered on 01/30/18 08:56; Start 01/23/18 at 09:00 Cetirizine HCl (ZyrTEC) 10 mg PRN DAILY PRN PO ALLERGIES Last administered on 08:45; Start 01/23/18 at 09:00 Non-Formulary Medication (Garlic ) 2,000 mg DAILY PO ; Start 01/23/18 at 09:00; Stop 01/23/18 at 09:00; Status DC Lactobacillus Rhamnosus (Culturelle) 1 cap DAILY PO Last administered on 6/8/ 18at 08:55; Start 01/23/18 at 09:00 Levothyroxine Sodium (Synthroid) 50 mcg DAILY07 PO Last administered on at 05:46; Start 01/23/18 at 07:00; Stop 01/23/18 at 14:03; Status DC Magnesium Oxide (Magnesium Oxide) 400 mg DAILY PO Last administered on at 08:56; Start 01/23/18 at 09:00 Naproxen (Naprosyn) 500 mg DAILY PO Last administered on 01/30/18at 08:55; Start 01/23/18 at 09:00 Polyethylene Glycol (miraLAX) 17 gm PRN DAILY PRN PO CONSTIPATION; Start at 09:00 Artificial Tears (Refresh Classic) 1 drop PRN DAILY PRN OU DRY EYE; Start 01/22 at 22:45 Acetaminophen (Tylenol) 650 mg PRN Q4HRS PRN PO PAIN / TEMP; Start 01/22/18 at 22:30 Levothyroxine Sodium (Synthroid) 50 mcg DAILY06 PO Last administered on at 06:04; Start 01/24/18 at 06:00; Stop 01/25/18 at 15:10; Status DC Sertraline HCl (Zoloft) 25 mg DAILY PO Last administered on 01/26/18at 10:44; Start 01/24/18 at 09:00; Stop 01/27/18 at 08:59; Status DC Sertraline HCl (Zoloft) 50 mg DAILY PO Last administered on 01/30/18at 08:55; Start 01/27/18 at 09:00 Olanzapine (ZyPREXA ZYDIS) 2.5 mg PRN Q2HR PRN PO PSYCHOSIS Last administered on 01/29/18at 22:13; Start 01/24/18 at 22:00 Levothyroxine Sodium (Synthroid) 75 mcg DAILY06 PO Last administered on at 05:38; Start 01/26/18 at 06:00 Fosfomycin Tromethamine (Monurol) 3 gm 1X ONCE PO Last administered on at 18:03; Start 01/25/18 at 16:00; Stop 01/25/18 at 16:01; Status DC Mirtazapine (Remeron) 7.5 mg QHS PO Last administered on 01/26/18 20:06; Start 01/26/18 at 21:00; Stop 01/27/18 at 18:49; Status DC Naproxen (Naprosyn) 500 mg 1X ONCE PO Last administered on 01/27/18 08:10; Start 01/27/18 at 08:30; Stop 01/27/18 at 08:32; Status DC Vitamin D (Vitamin D3) 50,000 unit WEEKLY PO Last administered on 01/27/18 13: 53; Start 01/27/18 at 13:30 Mirtazapine (Remeron) 15 mg QHS PO Last administered on 01/30/18 19:47; Start 01/27/18 at 21:00 Trazodone HCl (Desyrel) 50 mg PRN QHS PRN PO INSOMNIA, MAY REPEAT X1 Last administered on 01/30/18 19:49; Start 01/28/18 at 18:30 Active Scripts Active Reported Vitamin D3 (Cholecalciferol (Vitamin D3)) 1,000 Unit Tablet 1,000 Unit PO EVERY FRI,FRI,FRI Vitamin B-12 (Cyanocobalamin (Vitamin B-12)) 1,000 Mcg Tablet 1,000 Mcg PO DAILY Tylenol (Acetaminophen) 325 Mg Tablet 650 Mg PO PRN Q4HRS PRN Systane 0.3-0.4% Eye Drops (Propylene Glycol/Peg 400) 15 Ml Drops 1 Drop OU PRN PRN Synthroid (Levothyroxine Sodium) 50 Mcg Tablet 50 Mcg PO DAILYAC Seroquel (Quetiapine Fumarate) 50 Mg Tablet 50 Mg PO TID Klor-Con M20 (Potassium Chloride) 20 Meq Tab.er.prt 20 Meq PO DAILY Naprosyn (Naproxen) 500 Mg Tablet 500 Mg PO DAILY Miralax (Polyethylene Glycol 3350) 17 Gm Powd.pack 17 Gm PO PRN Q24HRS PRN Magnesium Oxide 400 Mg Tablet 400 Mg PO DAILY Lasix (Furosemide) 20 Mg Tablet 20 Mg PO DAILY Ipratropium [place] 0.2 Mg/1 Ml Solution 0.2 Mg IH PRN Q4HRS PRN Garlic 1,000 Mg Capsule 2,000 Mg PO DAILY Fish Oil 1,000 Mg Capsule ([place]-3 Fatty Acids/Fish Oil) 1 Each Capsule 1 Each PO DAILY Duoneb 0.5-3(2.5) Mg/3 Ml (Albuterol/Ipratropium) 3 Ml Ampul.neb 3 Ml NEB PRN QID PRN Diltiazem 24HR Cd (Diltiazem Hcl) 120 Mg Cap.er.24h 120 Mg PO DAILY Culturelle (Lactobacillus Rhamnosus Gg) 1 Each Capsule 1 Each PO DAILY Carvedilol 3.125 Mg Tablet 3.125 Mg PO DAILY Ativan (Lorazepam) 0.5 Mg Tablet 0.5 Mg PO PRN Q4HRS PRN Ativan (Lorazepam) 0.5 Mg Tablet 0.5 Mg PO HS Aspirin 325 Mg Tablet 325 Mg PO DAILY Amiodarone Hcl 200 Mg Tablet 200 Mg PO DAILY Janiya Allergy (Fexofenadine Hcl) 180 Mg Tablet 180 Mg PO PRN DAILY PRN I have reviewed the current psychotropics carefully including drug interactions. Risk benefit ratio favors no change other than as noted in my dictated progress note. Diagnosis: Problems: (1) Anxiety disorder (2) Dementia in Alzheimer's disease with delusions (3) Dementia in Alzheimer's disease with depression (4) Dementia, vascular, with delusions (5) Dementia, vascular, with depression (6) Impulse control disorder SANDER RASMUSSEN MD Jan 30, 2018 23:18
[2018-01-31 05:57] VITALS: BP 142/65
[2018-01-31 05:59] VITALS: BP 142/65
[2018-01-31] MEDS: LEVOTHYROXINE 75 MCG TABLET PO SCH (06:00)
[2018-01-31] MEDS: QUEtiapine 50 MG TABLET. PO SCH ×3 (08:34→20:04)
[2018-01-31] MEDS: NAPROXEN 500 MG TABLET PO SCH (08:34)
[2018-01-31] MEDS: FUROSEMIDE 20 MG TABLET PO SCH (08:34)
[2018-01-31] MEDS: AMIODARONE HCL 200 MG TABLET PO SCH (08:34)
[2018-01-31] MEDS: POTASSIUM CHLORIDE 20 MEQ TABLET.ER. PO SCH (08:34)
[2018-01-31] MEDS: SERTRALINE 50 MG TABLET. PO SCH (08:34)
[2018-01-31] MEDS: OMEGA-3 FATTY ACIDS/FISH OIL 1,000 MG CAPSULE. PO SCH (08:34)
[2018-01-31] MEDS: ASPIRIN 325 MG TABLET PO SCH (08:34)
[2018-01-31] MEDS: LACTOBACILLUS RHAMNOSUS GG 1 CAPSULE. PO SCH (08:35)
[2018-01-31] MEDS: CYANOCOBALAMIN (VITAMIN B-12) 1,000 MCG TABLET. PO SCH (08:35)
[2018-01-31] MEDS: MAGNESIUM OXIDE 400 MG TABLET PO SCH (08:35)
[2018-01-31] MEDS: CARVEDILOL 3.125 MG TABLET PO SCH (08:35)
--- NOTE | 2018-01-31 13:17 | PN ---
DATE: 01/30/2018 This late entry, 01/30/2018, covers elements not covered in my initial note of 01/30/2018. SUBJECTIVE: I met with the patient in the evening. The patient slept 6-3/4 hours. Compliant with medications, remains quite confused, anxious, restless. She is quite paranoid, upset, anxious in the morning, looking for her bra and other cloths. The bra was lying right next to her and she was oblivious of this. She is compliant with medications. REVIEW OF SYSTEMS: No CV, , pulmonary, eye, ENT system symptoms on review. MENTAL STATUS EXAM: Oriented to herself. Insight, judgment, recent and remote memory, attention, concentration, fund of knowledge poor, consistent with her diagnosis mentioned in my initial note. PLAN: Continue current psychotropics, may need to adjust Seroquel further. Zoloft has been increased. May need to increase it further after she has been on the 50 mg for a week or so. SANDER RASMUSSEN MD DR: CONCETTA/hazel JOB#: [id number] / [id number]
[2018-01-31 16:30] VITALS: BP 97/53
[2018-01-31] MEDS: LORazepam 0.5 MG TABLET PO SCH (20:04)
[2018-01-31] MEDS: traZODone 50 MG TABLET. PO PRN (20:04)
[2018-01-31] MEDS: MIRTAZAPINE 15 MG TABLET PO SCH (20:05)
[2018-02-01] MEDS: LEVOTHYROXINE 75 MCG TABLET PO SCH (03:00)
[2018-02-01 05:43] VITALS: BP 146/79
[2018-02-01] MEDS: ASPIRIN 325 MG TABLET PO SCH (08:52)
[2018-02-01] MEDS: NAPROXEN 500 MG TABLET PO SCH (08:52)
[2018-02-01] MEDS: OMEGA-3 FATTY ACIDS/FISH OIL 1,000 MG CAPSULE. PO SCH (08:52)
[2018-02-01] MEDS: POTASSIUM CHLORIDE 20 MEQ TABLET.ER. PO SCH (08:52)
[2018-02-01] MEDS: MAGNESIUM OXIDE 400 MG TABLET PO SCH (08:52)
[2018-02-01] MEDS: CYANOCOBALAMIN (VITAMIN B-12) 1,000 MCG TABLET. PO SCH (08:53)
[2018-02-01] MEDS: FUROSEMIDE 20 MG TABLET PO SCH (08:53)
[2018-02-01] MEDS: SERTRALINE 50 MG TABLET. PO SCH (08:53)
[2018-02-01] MEDS: QUEtiapine 50 MG TABLET. PO SCH ×3 (08:53→20:44)
[2018-02-01] MEDS: LACTOBACILLUS RHAMNOSUS GG 1 CAPSULE. PO SCH (08:53)
[2018-02-01] MEDS: CARVEDILOL 3.125 MG TABLET PO SCH (09:00)
[2018-02-01] MEDS: AMIODARONE HCL 200 MG TABLET PO SCH (09:00)
[2018-02-01 16:37] VITALS: BP 141/66
--- NOTE | 2018-02-01 20:35 | PDOC ---
Exam Note: Aakash Note: Late entry for date of service January 31, 2018. Please also refer to the separate dictated note~for this date of service dictated separately.~Patient seen individually. Discussed the patient with Nursing staff reviewed the chart.~ Reviewed interim history and current functioning. Reviewed vital signs,~Labs/ Radiology~and current medications noted below. Continue current treatment with the changes noted in the dictated addendum note Assessment: Vital Signs: VS - Last 72 Hours, by Label Date Time Temp Pulse Resp B/P (MAP) Pulse Ox O2 Delivery O2 Flow Rate FiO2 02/01/18 16:37 98.0 63 22 141/66 (91) 97 02/01/18 09:00 71 146/79 02/01/18 09:00 71 146/79 02/01/18 05:43 98.2 20 20 146/79 (101) 97 01/31/18 16:30 97.4 46 18 97/53 (68) 98 01/31/18 08:35 62 142/65 01/31/18 08:34 62 142/65 01/31/18 05:59 98.3 62 14 142/65 (90) 99 01/31/18 05:57 98.3 62 18 142/65 (90) 98 01/30/18 15:57 97.6 63 18 160/73 (102) 97 01/30/18 08:56 62 146/54 01/30/18 08:56 62 146/54 01/30/18 05:51 96.7 62 14 146/54 (84) 95 Vital Signs Date Time Temp Pulse Resp B/P (MAP) Pulse Ox O2 Delivery O2 Flow Rate FiO2 02/01/18 16:37 98.0 63 22 141/66 (91) 97 01/29/18 16:25 Room Air I&O Intake and Output 02/01/18 07:00 Intake Total 600 ml Balance 600 ml Intake Oral 600 ml Current Medications: Meds: Current Medications Acetaminophen (Tylenol) 650 mg PRN Q6HRS PRN PO PAIN / TEMP; Start 01/22/18 at 21:30; Stop 01/22/18 at 22:23; Status DC Multi-Ingredient Ointment (Analgesic [place]) 1 morenita PRN QID PRN TP MUSCLE PAIN; Start 01/22/18 at 21:30 Al Hydroxide/Mg Hydroxide (Mylanta Plus Xs) 15 ml PRN AFTMEALHC PRN PO DYSPEPSIA; Start 01/22/18 at 21:30 Magnesium Hydroxide (Milk Of Magnesia) 2,400 mg PRN QHS PRN PO CONSTIPATION; Start 01/22/18 at 21:30 Lorazepam (Ativan) 0.5 mg QHS PO Last administered on 01/31/18at 20:04; Start at 22:30 Lorazepam (Ativan) 0.5 mg PRN Q4HRS PRN PO ANXIETY / AGITATION Last administered on 01/29/18at 02:15; Start 01/22/18 at 22:30 Quetiapine Fumarate (SEROquel) 50 mg TID PO Last administered on 02/01/18at 14: 00; Start 01/22/18 at 22:30 Acetaminophen (Tylenol) 650 mg PRN Q4HRS PRN PO PAIN; Start 01/22/18 at 22:15; Stop 01/22/18 at 22:24; Status DC Aspirin ([employer] Aspirin) 325 mg DAILY PO Last administered on 02/01/18at 08:52; Start 01/23/18 at 09:00 Vitamin D (Vitamin D3) 1,000 unit QMWF PO Last administered on 01/26/18 10:44; Start 01/23/18 at 16:00; Stop 01/27/18 at 13:40; Status DC Cyanocobalamin (Vitamin B-12) 1,000 mcg DAILY PO Last administered on at 08:53; Start 01/23/18 at 09:00 Diltiazem HCl (Cardizem 24hr Cd) 120 mg DAILY PO Last administered on 01/24/18at 07:57; Start 01/23/18 at 09:00; Stop 01/25/18 at 15:15; Status DC Furosemide (Lasix) 20 mg DAILY PO Last administered on 02/01/18at 08:53; Start 01/23/18 at 09:00 Ipratropium [place] (Atrovent) 0.2 mg PRN Q4HRS PRN IH SHORTNESS OF BREATH; Start 01/22/18 at 22:15 Albuterol/ Ipratropium (Duoneb) 3 ml PRN QID PRN NEB SHORTNESS OF BREATH; Start 01/22/18 at 22:15 Fish Oil (Fish Oil) 1,000 mg DAILY PO Last administered on 02/01/18at 08:52; Start 01/23/18 at 09:00 Potassium Chloride (Klor-Con) 20 meq DAILY PO Last administered on 02/01/18at 08 :52; Start 01/23/18 at 09:00 Amiodarone HCl (Cordarone) 200 mg DAILY PO Last administered on 02/01/18at 09:00 ; Start 01/23/18 at 09:00 Carvedilol (Coreg) 3.125 mg DAILY PO Last administered on 02/01/18at 09:00; Start 01/23/18 at 09:00 Cetirizine HCl (ZyrTEC) 10 mg PRN DAILY PRN PO ALLERGIES Last administered on at 08:45; Start 01/23/18 at 09:00 Non-Formulary Medication (Garlic ) 2,000 mg DAILY PO ; Start 01/23/18 at 09:00; Stop 01/23/18 at 09:00; Status DC Lactobacillus Rhamnosus (Culturelle) 1 cap DAILY PO Last administered on at 08:53; Start 01/23/18 at 09:00 Levothyroxine Sodium (Synthroid) 50 mcg DAILY07 PO Last administered on at 05:46; Start 01/23/18 at 07:00; Stop 01/23/18 at 14:03; Status DC Magnesium Oxide (Magnesium Oxide) 400 mg DAILY PO Last administered on at 08:52; Start 01/23/18 at 09:00 Naproxen (Naprosyn) 500 mg DAILY PO Last administered on 02/01/18at 08:52; Start 01/23/18 at 09:00 Polyethylene Glycol (miraLAX) 17 gm PRN DAILY PRN PO CONSTIPATION; Start at 09:00 Artificial Tears (Refresh Classic) 1 drop PRN DAILY PRN OU DRY EYE; Start 01/22 at 22:45 Acetaminophen (Tylenol) 650 mg PRN Q4HRS PRN PO PAIN / TEMP; Start 01/22/18 at 22:30 Levothyroxine Sodium (Synthroid) 50 mcg DAILY06 PO Last administered on at 06:04; Start 01/24/18 at 06:00; Stop 01/25/18 at 15:10; Status DC Sertraline HCl (Zoloft) 25 mg DAILY PO Last administered on 01/26/18at 10:44; Start 01/24/18 at 09:00; Stop 01/27/18 at 08:59; Status DC Sertraline HCl (Zoloft) 50 mg DAILY PO Last administered on 02/01/18at 08:53; Start 01/27/18 at 09:00 Olanzapine (ZyPREXA ZYDIS) 2.5 mg PRN Q2HR PRN PO PSYCHOSIS Last administered on 02/01/18at 14:25; Start 01/24/18 at 22:00 Levothyroxine Sodium (Synthroid) 75 mcg DAILY06 PO Last administered on at 03:00; Start 01/26/18 at 06:00 Fosfomycin Tromethamine (Monurol) 3 gm 1X ONCE PO Last administered on at 18:03; Start 01/25/18 at 16:00; Stop 01/25/18 at 16:01; Status DC Mirtazapine (Remeron) 7.5 mg QHS PO Last administered on 01/26/18at 20:06; Start 01/26/18 at 21:00; Stop 01/27/18 at 18:49; Status DC Naproxen (Naprosyn) 500 mg 1X ONCE PO Last administered on 01/27/18at 08:10; Start 01/27/18 at 08:30; Stop 01/27/18 at 08:32; Status DC Vitamin D (Vitamin D3) 50,000 unit WEEKLY PO Last administered on 01/27/18at 13: 53; Start 01/27/18 at 13:30 Mirtazapine (Remeron) 15 mg QHS PO Last administered on 01/31/18at 20:05; Start 01/27/18 at 21:00 Trazodone HCl (Desyrel) 50 mg PRN QHS PRN PO INSOMNIA, MAY REPEAT X1 Last administered on 01/31/18at 20:04; Start 01/28/18 at 18:30; Stop 02/01/18 at 20:18; Status DC Trazodone HCl (Desyrel) 50 mg HS PO ; Start 02/01/18 at 21:00 Trazodone HCl (Desyrel) 50 mg PRN QHS PRN PO INSOMNIA; Start 02/01/18 at 20:30 Active Scripts Active Reported Vitamin D3 (Cholecalciferol (Vitamin D3)) 1,000 Unit Tablet 1,000 Unit PO EVERY SUN,WED,FRI Vitamin B-12 (Cyanocobalamin (Vitamin B-12)) 1,000 Mcg Tablet 1,000 Mcg PO DAILY Tylenol (Acetaminophen) 325 Mg Tablet 650 Mg PO PRN Q4HRS PRN Systane 0.3-0.4% Eye Drops (Propylene Glycol/Peg 400) 15 Ml Drops 1 Drop OU PRN PRN Synthroid (Levothyroxine Sodium) 50 Mcg Tablet 50 Mcg PO DAILYAC Seroquel (Quetiapine Fumarate) 50 Mg Tablet 50 Mg PO TID Klor-Con M20 (Potassium Chloride) 20 Meq Tab.er.prt 20 Meq PO DAILY Naprosyn (Naproxen) 500 Mg Tablet 500 Mg PO DAILY Miralax (Polyethylene Glycol 3350) 17 Gm Powd.pack 17 Gm PO PRN Q24HRS PRN Magnesium Oxide 400 Mg Tablet 400 Mg PO DAILY Lasix (Furosemide) 20 Mg Tablet 20 Mg PO DAILY Ipratropium [place] 0.2 Mg/1 Ml Solution 0.2 Mg IH PRN Q4HRS PRN Garlic 1,000 Mg Capsule 2,000 Mg PO DAILY Fish Oil 1,000 Mg Capsule ([place]-3 Fatty Acids/Fish Oil) 1 Each Capsule 1 Each PO DAILY Duoneb 0.5-3(2.5) Mg/3 Ml (Albuterol/Ipratropium) 3 Ml Ampul.neb 3 Ml NEB PRN QID PRN Diltiazem 24HR Cd (Diltiazem Hcl) 120 Mg Cap.er.24h 120 Mg PO DAILY Culturelle (Lactobacillus Rhamnosus Gg) 1 Each Capsule 1 Each PO DAILY Carvedilol 3.125 Mg Tablet 3.125 Mg PO DAILY Ativan (Lorazepam) 0.5 Mg Tablet 0.5 Mg PO PRN Q4HRS PRN Ativan (Lorazepam) 0.5 Mg Tablet 0.5 Mg PO HS Aspirin 325 Mg Tablet 325 Mg PO DAILY Amiodarone Hcl 200 Mg Tablet 200 Mg PO DAILY [place] Allergy (Fexofenadine Hcl) 180 Mg Tablet 180 Mg PO PRN DAILY PRN I have reviewed the current psychotropics carefully including drug interactions. Risk benefit ratio favors no change other than as noted in my dictated progress note. Diagnosis: Problems: (1) Anxiety disorder (2) Dementia in Alzheimer's disease with delusions (3) Dementia in Alzheimer's disease with depression (4) Dementia, vascular, with delusions (5) Dementia, vascular, with depression (6) Impulse control disorder SANDER RASMUSSEN MD Feb 01, 2018 20:35
--- NOTE | 2018-02-01 20:35 | PDOC ---
Exam Note: Aakash Note: Please also refer to the separate dictated note~for this date of service dictated separately.~Patient seen individually. Discussed the patient with Nursing staff reviewed the chart.~Reviewed interim history and current functioning. Reviewed vital signs,~Labs/ Radiology~and current medications noted below. Continue current treatment with the changes noted in the dictated addendum note Assessment: Vital Signs: Vital Signs Date Time Temp Pulse Resp B/P (MAP) Pulse Ox O2 Delivery O2 Flow Rate FiO2 02/01/18 16:37 98.0 63 22 141/66 (91) 97 01/29/18 16:25 Room Air I&O Intake and Output 02/01/18 07:00 Intake Total 600 ml Balance 600 ml Intake Oral 600 ml Current Medications: Meds: Current Medications Acetaminophen (Tylenol) 650 mg PRN Q6HRS PRN PO PAIN / TEMP; Start 01/22/18 at 21:30; Stop 01/22/18 at 22:23; Status DC Multi-Ingredient Ointment (Analgesic [place]) 1 morenita PRN QID PRN TP MUSCLE PAIN; Start 01/22/18 at 21:30 Al Hydroxide/Mg Hydroxide (Mylanta Plus Xs) 15 ml PRN AFTMEALHC PRN PO DYSPEPSIA; Start 01/22/18 at 21:30 Magnesium Hydroxide (Milk Of Magnesia) 2,400 mg PRN QHS PRN PO CONSTIPATION; Start 01/22/18 at 21:30 Lorazepam (Ativan) 0.5 mg QHS PO Last administered on 01/31/18at 20:04; Start at 22:30 Lorazepam (Ativan) 0.5 mg PRN Q4HRS PRN PO ANXIETY / AGITATION Last administered on 01/29/18at 02:15; Start 01/22/18 at 22:30 Quetiapine Fumarate (SEROquel) 50 mg TID PO Last administered on 02/01/18at 14: 00; Start 01/22/18 at 22:30 Acetaminophen (Tylenol) 650 mg PRN Q4HRS PRN PO PAIN; Start 01/22/18 at 22:15; Stop 01/22/18 at 22:24; Status DC Aspirin ([place] Aspirin) 325 mg DAILY PO Last administered on 02/01/18at 08:52; Start 01/23/18 at 09:00 Vitamin D (Vitamin D3) 1,000 unit QMWF PO Last administered on 01/26/18 10:44; Start 01/23/18 at 16:00; Stop 01/27/18 at 13:40; Status DC Cyanocobalamin (Vitamin B-12) 1,000 mcg DAILY PO Last administered on 08:53; Start 01/23/18 at 09:00 Diltiazem HCl (Cardizem 24hr Cd) 120 mg DAILY PO Last administered on 01/24/18 07:57; Start 01/23/18 at 09:00; Stop 01/25/18 at 15:15; Status DC Furosemide (Lasix) 20 mg DAILY PO Last administered on 02/01/18 08:53; Start 01/23/18 at 09:00 Ipratropium [place] (Atrovent) 0.2 mg PRN Q4HRS PRN IH SHORTNESS OF BREATH; Start 01/22/18 at 22:15 Albuterol/ Ipratropium (Duoneb) 3 ml PRN QID PRN NEB SHORTNESS OF BREATH; Start 01/22/18 at 22:15 Fish Oil (Fish Oil) 1,000 mg DAILY PO Last administered on 02/01/18 08:52; Start 01/23/18 at 09:00 Potassium Chloride (Klor-Con) 20 meq DAILY PO Last administered on 02/01/18 08 :52; Start 01/23/18 at 09:00 Amiodarone HCl (Cordarone) 200 mg DAILY PO Last administered on 02/01/18 09:00 ; Start 01/23/18 at 09:00 Carvedilol (Coreg) 3.125 mg DAILY PO Last administered on 02/01/18 09:00; Start 01/23/18 at 09:00 Cetirizine HCl (ZyrTEC) 10 mg PRN DAILY PRN PO ALLERGIES Last administered on 08:45; Start 01/23/18 at 09:00 Non-Formulary Medication (Garlic ) 2,000 mg DAILY PO ; Start 01/23/18 at 09:00; Stop 01/23/18 at 09:00; Status DC Lactobacillus Rhamnosus (Culturelle) 1 cap DAILY PO Last administered on 6/10/ 18at 08:53; Start 01/23/18 at 09:00 Levothyroxine Sodium (Synthroid) 50 mcg DAILY07 PO Last administered on at 05:46; Start 01/23/18 at 07:00; Stop 01/23/18 at 14:03; Status DC Magnesium Oxide (Magnesium Oxide) 400 mg DAILY PO Last administered on at 08:52; Start 01/23/18 at 09:00 Naproxen (Naprosyn) 500 mg DAILY PO Last administered on 02/01/18at 08:52; Start 01/23/18 at 09:00 Polyethylene Glycol (miraLAX) 17 gm PRN DAILY PRN PO CONSTIPATION; Start at 09:00 Artificial Tears (Refresh Classic) 1 drop PRN DAILY PRN OU DRY EYE; Start 01/22 at 22:45 Acetaminophen (Tylenol) 650 mg PRN Q4HRS PRN PO PAIN / TEMP; Start 01/22/18 at 22:30 Levothyroxine Sodium (Synthroid) 50 mcg DAILY06 PO Last administered on at 06:04; Start 01/24/18 at 06:00; Stop 01/25/18 at 15:10; Status DC Sertraline HCl (Zoloft) 25 mg DAILY PO Last administered on 01/26/18at 10:44; Start 01/24/18 at 09:00; Stop 01/27/18 at 08:59; Status DC Sertraline HCl (Zoloft) 50 mg DAILY PO Last administered on 02/01/18at 08:53; Start 01/27/18 at 09:00 Olanzapine (ZyPREXA ZYDIS) 2.5 mg PRN Q2HR PRN PO PSYCHOSIS Last administered on 02/01/18at 14:25; Start 01/24/18 at 22:00 Levothyroxine Sodium (Synthroid) 75 mcg DAILY06 PO Last administered on at 03:00; Start 01/26/18 at 06:00 Fosfomycin Tromethamine (Monurol) 3 gm 1X ONCE PO Last administered on at 18:03; Start 01/25/18 at 16:00; Stop 01/25/18 at 16:01; Status DC Mirtazapine (Remeron) 7.5 mg QHS PO Last administered on 01/26/18at 20:06; Start 01/26/18 at 21:00; Stop 01/27/18 at 18:49; Status DC Naproxen (Naprosyn) 500 mg 1X ONCE PO Last administered on 01/27/18at 08:10; Start 01/27/18 at 08:30; Stop 01/27/18 at 08:32; Status DC Vitamin D (Vitamin D3) 50,000 unit WEEKLY PO Last administered on 01/27/18at 13: 53; Start 01/27/18 at 13:30 Mirtazapine (Remeron) 15 mg QHS PO Last administered on 01/31/18at 20:05; Start 01/27/18 at 21:00 Trazodone HCl (Desyrel) 50 mg PRN QHS PRN PO INSOMNIA, MAY REPEAT X1 Last administered on 01/31/18at 20:04; Start 01/28/18 at 18:30; Stop 02/01/18 at 20:18; Status DC Trazodone HCl (Desyrel) 50 mg HS PO ; Start 02/01/18 at 21:00 Trazodone HCl (Desyrel) 50 mg PRN QHS PRN PO INSOMNIA; Start 02/01/18 at 20:30 Active Scripts Active Reported Vitamin D3 (Cholecalciferol (Vitamin D3)) 1,000 Unit Tablet 1,000 Unit PO EVERY FRI,WED,FRI Vitamin B-12 (Cyanocobalamin (Vitamin B-12)) 1,000 Mcg Tablet 1,000 Mcg PO DAILY Tylenol (Acetaminophen) 325 Mg Tablet 650 Mg PO PRN Q4HRS PRN Systane 0.3-0.4% Eye Drops (Propylene Glycol/Peg 400) 15 Ml Drops 1 Drop OU PRN PRN Synthroid (Levothyroxine Sodium) 50 Mcg Tablet 50 Mcg PO DAILYAC Seroquel (Quetiapine Fumarate) 50 Mg Tablet 50 Mg PO TID Klor-Con M20 (Potassium Chloride) 20 Meq Tab.er.prt 20 Meq PO DAILY Naprosyn (Naproxen) 500 Mg Tablet 500 Mg PO DAILY Miralax (Polyethylene Glycol 3350) 17 Gm Powd.pack 17 Gm PO PRN Q24HRS PRN Magnesium Oxide 400 Mg Tablet 400 Mg PO DAILY Lasix (Furosemide) 20 Mg Tablet 20 Mg PO DAILY Ipratropium [place] 0.2 Mg/1 Ml Solution 0.2 Mg IH PRN Q4HRS PRN Garlic 1,000 Mg Capsule 2,000 Mg PO DAILY Fish Oil 1,000 Mg Capsule ([place]-3 Fatty Acids/Fish Oil) 1 Each Capsule 1 Each PO DAILY Duoneb 0.5-3(2.5) Mg/3 Ml (Albuterol/Ipratropium) 3 Ml Ampul.neb 3 Ml NEB PRN QID PRN Diltiazem 24HR Cd (Diltiazem Hcl) 120 Mg Cap.er.24h 120 Mg PO DAILY Culturelle (Lactobacillus Rhamnosus Gg) 1 Each Capsule 1 Each PO DAILY Carvedilol 3.125 Mg Tablet 3.125 Mg PO DAILY Ativan (Lorazepam) 0.5 Mg Tablet 0.5 Mg PO PRN Q4HRS PRN Ativan (Lorazepam) 0.5 Mg Tablet 0.5 Mg PO HS Aspirin 325 Mg Tablet 325 Mg PO DAILY Amiodarone Hcl 200 Mg Tablet 200 Mg PO DAILY Janiya Allergy (Fexofenadine Hcl) 180 Mg Tablet 180 Mg PO PRN DAILY PRN I have reviewed the current psychotropics carefully including drug interactions. Risk benefit ratio favors no change other than as noted in my dictated progress note. Diagnosis: Problems: (1) Anxiety disorder (2) Dementia in Alzheimer's disease with delusions (3) Dementia in Alzheimer's disease with depression (4) Dementia, vascular, with delusions (5) Dementia, vascular, with depression (6) Impulse control disorder SANDER RASMUSSEN MD Feb 01, 2018 20:35
[2018-02-01] MEDS: MIRTAZAPINE 15 MG TABLET PO SCH (20:44)
[2018-02-01] MEDS: LORazepam 0.5 MG TABLET PO SCH (20:44)
[2018-02-01] MEDS: traZODone 50 MG TABLET. PO SCH (20:46)
[2018-02-01] MEDS: traZODone 50 MG TABLET. PO PRN (22:28)
[2018-02-02] MEDS: LEVOTHYROXINE 75 MCG TABLET PO SCH (06:21)
[2018-02-02 06:34] VITALS: BP 117/78
[2018-02-02] MEDS: CYANOCOBALAMIN (VITAMIN B-12) 1,000 MCG TABLET. PO SCH (08:20)
[2018-02-02] MEDS: SERTRALINE 50 MG TABLET. PO SCH (08:20)
[2018-02-02] MEDS: OMEGA-3 FATTY ACIDS/FISH OIL 1,000 MG CAPSULE. PO SCH (08:20)
[2018-02-02] MEDS: NAPROXEN 500 MG TABLET PO SCH (08:21)
[2018-02-02] MEDS: POTASSIUM CHLORIDE 20 MEQ TABLET.ER. PO SCH (08:21)
[2018-02-02] MEDS: LACTOBACILLUS RHAMNOSUS GG 1 CAPSULE. PO SCH (08:21)
[2018-02-02] MEDS: QUEtiapine 50 MG TABLET. PO SCH ×3 (08:21→19:54)
[2018-02-02] MEDS: ASPIRIN 325 MG TABLET PO SCH (08:21)
[2018-02-02] MEDS: FUROSEMIDE 20 MG TABLET PO SCH (08:21)
[2018-02-02] MEDS: MAGNESIUM OXIDE 400 MG TABLET PO SCH (08:21)
[2018-02-02] MEDS: CARVEDILOL 3.125 MG TABLET PO SCH (08:22)
[2018-02-02] MEDS: AMIODARONE HCL 200 MG TABLET PO SCH (08:22)
[2018-02-02 16:08] VITALS: BP 93/64
[2018-02-02] MEDS: LORazepam 0.5 MG TABLET PO SCH (19:53)
[2018-02-02] MEDS: traZODone 50 MG TABLET. PO SCH (19:53)
[2018-02-02] MEDS: MIRTAZAPINE 15 MG TABLET PO SCH (19:54)
--- NOTE | 2018-02-02 20:54 | PDOC ---
Exam Note: Aakash Note: Please also refer to the separate dictated note~for this date of service dictated separately.~Patient seen individually. Discussed the patient with Nursing staff reviewed the chart.~Reviewed interim history and current functioning. Reviewed vital signs,~Labs/ Radiology~and current medications noted below. Continue current treatment with the changes noted in the dictated addendum note Assessment: Vital Signs: Vital Signs Date Time Temp Pulse Resp B/P (MAP) Pulse Ox O2 Delivery O2 Flow Rate FiO2 02/02/18 16:08 97.5 66 20 93/64 (74) 98 01/29/18 16:25 Room Air I&O Intake and Output 02/02/18 07:00 Intake Total 360 ml Balance 360 ml Intake Oral 360 ml Current Medications: Meds: Current Medications Acetaminophen (Tylenol) 650 mg PRN Q6HRS PRN PO PAIN / TEMP; Start 01/22/18 at 21:30; Stop 01/22/18 at 22:23; Status DC Multi-Ingredient Ointment (Analgesic [place]) 1 morenita PRN QID PRN TP MUSCLE PAIN; Start 01/22/18 at 21:30 Al Hydroxide/Mg Hydroxide (Mylanta Plus Xs) 15 ml PRN AFTMEALHC PRN PO DYSPEPSIA; Start 01/22/18 at 21:30 Magnesium Hydroxide (Milk Of Magnesia) 2,400 mg PRN QHS PRN PO CONSTIPATION; Start 01/22/18 at 21:30 Lorazepam (Ativan) 0.5 mg QHS PO Last administered on 02/02/18at 19:53; Start at 22:30 Lorazepam (Ativan) 0.5 mg PRN Q4HRS PRN PO ANXIETY / AGITATION Last administered on 01/29/18at 02:15; Start 01/22/18 at 22:30 Quetiapine Fumarate (SEROquel) 50 mg TID PO Last administered on 02/02/18at 19: 54; Start 01/22/18 at 22:30 Acetaminophen (Tylenol) 650 mg PRN Q4HRS PRN PO PAIN; Start 01/22/18 at 22:15; Stop 01/22/18 at 22:24; Status DC Aspirin (Galina Aspirin) 325 mg DAILY PO Last administered on 02/02/18at 08:21; Start 01/23/18 at 09:00 Vitamin D (Vitamin D3) 1,000 unit QMWF PO Last administered on 01/26/18 10:44; Start 01/23/18 at 16:00; Stop 01/27/18 at 13:40; Status DC Cyanocobalamin (Vitamin B-12) 1,000 mcg DAILY PO Last administered on 08:20; Start 01/23/18 at 09:00 Diltiazem HCl (Cardizem 24hr Cd) 120 mg DAILY PO Last administered on 01/24/18 07:57; Start 01/23/18 at 09:00; Stop 01/25/18 at 15:15; Status DC Furosemide (Lasix) 20 mg DAILY PO Last administered on 02/02/18 08:21; Start 01/23/18 at 09:00 Ipratropium [place] (Atrovent) 0.2 mg PRN Q4HRS PRN IH SHORTNESS OF BREATH; Start 01/22/18 at 22:15 Albuterol/ Ipratropium (Duoneb) 3 ml PRN QID PRN NEB SHORTNESS OF BREATH; Start 01/22/18 at 22:15 Fish Oil (Fish Oil) 1,000 mg DAILY PO Last administered on 02/02/18 08:20; Start 01/23/18 at 09:00 Potassium Chloride (Klor-Con) 20 meq DAILY PO Last administered on 02/02/18 08 :21; Start 01/23/18 at 09:00 Amiodarone HCl (Cordarone) 200 mg DAILY PO Last administered on 02/02/18 08:22 ; Start 01/23/18 at 09:00 Carvedilol (Coreg) 3.125 mg DAILY PO Last administered on 02/01/18at 09:00; Start 01/23/18 at 09:00 Cetirizine HCl (ZyrTEC) 10 mg PRN DAILY PRN PO ALLERGIES Last administered on 08:45; Start 01/23/18 at 09:00 Non-Formulary Medication (Garlic ) 2,000 mg DAILY PO ; Start 01/23/18 at 09:00; Stop 01/23/18 at 09:00; Status DC Lactobacillus Rhamnosus (Culturelle) 1 cap DAILY PO Last administered on 6/11/ 18at 08:21; Start 01/23/18 at 09:00 Levothyroxine Sodium (Synthroid) 50 mcg DAILY07 PO Last administered on at 05:46; Start 01/23/18 at 07:00; Stop 01/23/18 at 14:03; Status DC Magnesium Oxide (Magnesium Oxide) 400 mg DAILY PO Last administered on at 08:21; Start 01/23/18 at 09:00 Naproxen (Naprosyn) 500 mg DAILY PO Last administered on 02/02/18at 08:21; Start 01/23/18 at 09:00 Polyethylene Glycol (miraLAX) 17 gm PRN DAILY PRN PO CONSTIPATION; Start at 09:00 Artificial Tears (Refresh Classic) 1 drop PRN DAILY PRN OU DRY EYE; Start 01/22 at 22:45 Acetaminophen (Tylenol) 650 mg PRN Q4HRS PRN PO PAIN / TEMP; Start 01/22/18 at 22:30 Levothyroxine Sodium (Synthroid) 50 mcg DAILY06 PO Last administered on at 06:04; Start 01/24/18 at 06:00; Stop 01/25/18 at 15:10; Status DC Sertraline HCl (Zoloft) 25 mg DAILY PO Last administered on 01/26/18at 10:44; Start 01/24/18 at 09:00; Stop 01/27/18 at 08:59; Status DC Sertraline HCl (Zoloft) 50 mg DAILY PO Last administered on 02/02/18at 08:20; Start 01/27/18 at 09:00 Olanzapine (ZyPREXA ZYDIS) 2.5 mg PRN Q2HR PRN PO PSYCHOSIS Last administered on 02/01/18at 14:25; Start 01/24/18 at 22:00 Levothyroxine Sodium (Synthroid) 75 mcg DAILY06 PO Last administered on at 06:21; Start 01/26/18 at 06:00 Fosfomycin Tromethamine (Monurol) 3 gm 1X ONCE PO Last administered on at 18:03; Start 01/25/18 at 16:00; Stop 01/25/18 at 16:01; Status DC Mirtazapine (Remeron) 7.5 mg QHS PO Last administered on 01/26/18 20:06; Start 01/26/18 at 21:00; Stop 01/27/18 at 18:49; Status DC Naproxen (Naprosyn) 500 mg 1X ONCE PO Last administered on 01/27/18at 08:10; Start 01/27/18 at 08:30; Stop 01/27/18 at 08:32; Status DC Vitamin D (Vitamin D3) 50,000 unit WEEKLY PO Last administered on 01/27/18at 13: 53; Start 01/27/18 at 13:30 Mirtazapine (Remeron) 15 mg QHS PO Last administered on 02/02/18at 19:54; Start 01/27/18 at 21:00 Trazodone HCl (Desyrel) 50 mg PRN QHS PRN PO INSOMNIA, MAY REPEAT X1 Last administered on 01/31/18at 20:04; Start 01/28/18 at 18:30; Stop 02/01/18 at 20:18; Status DC Trazodone HCl (Desyrel) 50 mg HS PO Last administered on 02/02/18at 19:53; Start 02/01/18 at 21:00 Trazodone HCl (Desyrel) 50 mg PRN QHS PRN PO INSOMNIA Last administered on 02/01at 22:28; Start 02/01/18 at 20:30 Active Scripts Active Reported Vitamin D3 (Cholecalciferol (Vitamin D3)) 1,000 Unit Tablet 1,000 Unit PO EVERY FRI,WED,FRI Vitamin B-12 (Cyanocobalamin (Vitamin B-12)) 1,000 Mcg Tablet 1,000 Mcg PO DAILY Tylenol (Acetaminophen) 325 Mg Tablet 650 Mg PO PRN Q4HRS PRN Systane 0.3-0.4% Eye Drops (Propylene Glycol/Peg 400) 15 Ml Drops 1 Drop OU PRN PRN Synthroid (Levothyroxine Sodium) 50 Mcg Tablet 50 Mcg PO DAILYAC Seroquel (Quetiapine Fumarate) 50 Mg Tablet 50 Mg PO TID Klor-Con M20 (Potassium Chloride) 20 Meq Tab.er.prt 20 Meq PO DAILY Naprosyn (Naproxen) 500 Mg Tablet 500 Mg PO DAILY Miralax (Polyethylene Glycol 3350) 17 Gm Powd.pack 17 Gm PO PRN Q24HRS PRN Magnesium Oxide 400 Mg Tablet 400 Mg PO DAILY Lasix (Furosemide) 20 Mg Tablet 20 Mg PO DAILY Ipratropium [place] 0.2 Mg/1 Ml Solution 0.2 Mg IH PRN Q4HRS PRN Garlic 1,000 Mg Capsule 2,000 Mg PO DAILY Fish Oil 1,000 Mg Capsule ([place]-3 Fatty Acids/Fish Oil) 1 Each Capsule 1 Each PO DAILY Duoneb 0.5-3(2.5) Mg/3 Ml (Albuterol/Ipratropium) 3 Ml Ampul.neb 3 Ml NEB PRN QID PRN Diltiazem 24HR Cd (Diltiazem Hcl) 120 Mg Cap.er.24h 120 Mg PO DAILY Culturelle (Lactobacillus Rhamnosus Gg) 1 Each Capsule 1 Each PO DAILY Carvedilol 3.125 Mg Tablet 3.125 Mg PO DAILY Ativan (Lorazepam) 0.5 Mg Tablet 0.5 Mg PO PRN Q4HRS PRN Ativan (Lorazepam) 0.5 Mg Tablet 0.5 Mg PO HS Aspirin 325 Mg Tablet 325 Mg PO DAILY Amiodarone Hcl 200 Mg Tablet 200 Mg PO DAILY Janiya Allergy (Fexofenadine Hcl) 180 Mg Tablet 180 Mg PO PRN DAILY PRN I have reviewed the current psychotropics carefully including drug interactions. Risk benefit ratio favors no change other than as noted in my dictated progress note. Diagnosis: Problems: (1) Anxiety disorder (2) Dementia in Alzheimer's disease with delusions (3) Dementia in Alzheimer's disease with depression (4) Dementia, vascular, with delusions (5) Dementia, vascular, with depression (6) Impulse control disorder SANDER RASMUSSEN MD Feb 02, 2018 20:54
[2018-02-03 05:55] VITALS: BP 144/68
[2018-02-03] MEDS: LEVOTHYROXINE 75 MCG TABLET PO SCH (06:18)
[2018-02-03 07:22] LABS: BASO # 0.1 x10^3/uL (0.0-0.2); BASO % 1 % (0-3); EOS # 0.2 x10^3/uL (0.0-0.7); EOS % 4 % (0-3); HEMATOCRIT 37.9 % (36.0-47.0); HEMOGLOBIN 12.6 g/dL (12.0-15.5); LYMPH # 0.9 x10^3/uL (1.0-4.8); LYMPH % 17 % (24-48); MEAN CORPUSCULAR HEMOGLOBIN 31 pg (25-35); MEAN CORPUSCULAR HGB CONC 33 g/dL (31-37); MEAN CORPUSCULAR VOLUME 94 fL (79-100); MONO # 0.5 x10^3/uL (0.0-1.1); MONO % 9 % (0-9); NEUT # 3.9 x10^3uL (1.8-7.7); NEUT % 70 % (31-73); PLATELET COUNT 254 x10^3/uL (140-400); RED BLOOD COUNT 4.02 x10^6/uL (3.50-5.40); RED CELL DISTRIBUTION WIDTH 14.5 % (11.5-14.5); WHITE BLOOD COUNT 5.6 x10^3/uL (4.0-11.0)
[2018-02-03 07:35] LABS: ALBUMIN 3.5 g/dL (3.4-5.0); ALBUMIN/GLOBULIN RATIO 0.9 (1.0-1.7); CALCIUM 8.6 mg/dL (8.5-10.1); CREATININE 1.4 mg/dL (0.6-1.0); GFR 36.1; POTASSIUM 4.4 mmol/L (3.5-5.1); TOTAL BILIRUBIN 0.4 mg/dL (0.2-1.0); TOTAL PROTEIN 7.2 g/dL (6.4-8.2)
[2018-02-03] MEDS: OMEGA-3 FATTY ACIDS/FISH OIL 1,000 MG CAPSULE. PO SCH (08:25)
[2018-02-03] MEDS: QUEtiapine 50 MG TABLET. PO SCH ×3 (08:25→20:09)
[2018-02-03] MEDS: LACTOBACILLUS RHAMNOSUS GG 1 CAPSULE. PO SCH (08:25)
[2018-02-03] MEDS: FUROSEMIDE 20 MG TABLET PO SCH (08:25)
[2018-02-03] MEDS: ASPIRIN 325 MG TABLET PO SCH (08:26)
[2018-02-03] MEDS: NAPROXEN 500 MG TABLET PO SCH (08:26)
[2018-02-03] MEDS: POTASSIUM CHLORIDE 20 MEQ TABLET.ER. PO SCH (08:26)
[2018-02-03] MEDS: SERTRALINE 50 MG TABLET. PO SCH (08:26)
[2018-02-03] MEDS: MAGNESIUM OXIDE 400 MG TABLET PO SCH (08:26)
[2018-02-03] MEDS: CYANOCOBALAMIN (VITAMIN B-12) 1,000 MCG TABLET. PO SCH (08:26)
[2018-02-03] MEDS: AMIODARONE HCL 200 MG TABLET PO SCH (08:27)
[2018-02-03] MEDS: CARVEDILOL 3.125 MG TABLET PO SCH (08:29)
[2018-02-03] MEDS: CHOLECALCIFEROL (VITAMIN D3) 50,000 UNIT CAPSULE PO SCH (08:30)
--- NOTE | 2018-02-03 09:14 | PN ---
DATE: 02/01/2018 PSYCHIATRIC PROGRESS NOTE This is a late entry of 02/01/2018, covers elements not covered in my initial note. SUBJECTIVE: I met with the patient in the evening. The patient had a good day, compliant with medications, was quite paranoid, suspicious, believed meds were poisoned, and felt the pulse oximetry monitor was to kill her. REVIEW OF SYSTEMS: No CV, , pulmonary, eye, ENT system symptoms on review. Just slept 1 hour previous evening. Reliability is poor. MENTAL STATUS EXAM: Oriented to herself. Insight, judgment, recent and remote memory, attention, concentration, fund of knowledge poor, consistent with her diagnosis from initial note. PLAN: Change trazodone to 50 mg at bedtime schedule, december repeat x 1 p.r.n. insomnia. Rest unchanged. MAN Bridget RASMUSSEN MD DR: CONCETTA/hazel JOB#: [id number] / [id number]
--- NOTE | 2018-02-03 13:39 | PN ---
DATE: 01/31/2018 This is a late entry 01/31/2018, covers elements not covered in my initial note. SUBJECTIVE: I met with the patient in the evening. The patient remains somewhat anxious, restless, quite confused. REVIEW OF SYSTEMS: No CV, , pulmonary, eye, ENT system symptoms on review. Reliability poor. MENTAL STATUS EXAM: Oriented to herself. Insight, judgment, recent and remote memory, attention, concentration, fund of knowledge poor, consistent with her diagnosis mentioned in my initial note. PLAN: Continue psychotropics from initial note, may need to increase Seroquel if paranoia, mood lability persists. MAN Bridget RASMUSSEN MD DR: CONCETTA/hazel JOB#: [id number] / [id number]
[2018-02-03 16:50] VITALS: BP 117/70
[2018-02-03] MEDS: traZODone 50 MG TABLET. PO SCH (20:09)
[2018-02-03] MEDS: LORazepam 0.5 MG TABLET PO SCH (20:09)
[2018-02-03] MEDS: MIRTAZAPINE 15 MG TABLET PO SCH (20:09)
--- NOTE | 2018-02-03 20:13 | PDOC ---
Exam Note: Aakash Note: Please also refer to the separate dictated note~for this date of service dictated separately.~Patient seen individually. Discussed the patient with Nursing staff reviewed the chart.~Reviewed interim history and current functioning. Reviewed vital signs,~Labs/ Radiology~and current medications noted below. Continue current treatment with the changes noted in the dictated addendum note Assessment: Vital Signs: Vital Signs Date Time Temp Pulse Resp B/P (MAP) Pulse Ox O2 Delivery O2 Flow Rate FiO2 02/03/18 16:50 98.6 56 17 117/70 (86) 95 Room Air I&O Intake and Output 02/03/18 07:00 Intake Total 480 ml Balance 480 ml Intake Oral 480 ml Labs: Laboratory Tests Test 02/03/18 06:53 White Blood Count 5.6 x10^3/uL (4.0-11.0) Red Blood Count 4.02 x10^6/uL (3.50-5.40) Hemoglobin 12.6 g/dL (12.0-15.5) Hematocrit 37.9 % (36.0-47.0) Mean Corpuscular Volume 94 fL (79-100) Mean Corpuscular Hemoglobin 31 pg (25-35) Mean Corpuscular Hemoglobin Concent 33 g/dL (31-37) Red Cell Distribution Width 14.5 % (11.5-14.5) Platelet Count 254 x10^3/uL (140-400) Neutrophils (%) (Auto) 70 % (31-73) Lymphocytes (%) (Auto) 17 % (24-48) L Monocytes (%) (Auto) 9 % (0-9) Eosinophils (%) (Auto) 4 % (0-3) H Basophils (%) (Auto) 1 % (0-3) Neutrophils # (Auto) 3.9 x10^3uL (1.8-7.7) Lymphocytes # (Auto) 0.9 x10^3/uL (1.0-4.8) L Monocytes # (Auto) 0.5 x10^3/uL (0.0-1.1) Eosinophils # (Auto) 0.2 x10^3/uL (0.0-0.7) Basophils # (Auto) 0.1 x10^3/uL (0.0-0.2) Sodium Level 141 mmol/L (136-145) Potassium Level 4.4 mmol/L (3.5-5.1) Chloride Level 105 mmol/L (98-107) Carbon Dioxide Level 29 mmol/L (21-32) Anion Gap 7 (6-14) Blood Urea Nitrogen 23 mg/dL (7-20) H Creatinine 1.4 mg/dL (0.6-1.0) H Estimated GFR (Cockcroft-Gault) 36.1 BUN/Creatinine Ratio 16 (6-20) Glucose Level 108 mg/dL (70-99) H Calcium Level 8.6 mg/dL (8.5-10.1) Total Bilirubin 0.4 mg/dL (0.2-1.0) Aspartate Amino Transferase (AST) 22 U/L (15-37) Alanine Aminotransferase (ALT) 20 U/L (14-59) Alkaline Phosphatase 103 U/L (46-116) Total Protein 7.2 g/dL (6.4-8.2) Albumin 3.5 g/dL (3.4-5.0) Albumin/Globulin Ratio 0.9 (1.0-1.7) L Current Medications: Meds: Current Medications Acetaminophen (Tylenol) 650 mg PRN Q6HRS PRN PO PAIN / TEMP; Start 01/22/18 at 21:30; Stop 01/22/18 at 22:23; Status DC Multi-Ingredient Ointment (Analgesic [place]) 1 morenita PRN QID PRN TP MUSCLE PAIN; Start 01/22/18 at 21:30 Al Hydroxide/Mg Hydroxide (Mylanta Plus Xs) 15 ml PRN AFTMEALHC PRN PO DYSPEPSIA; Start 01/22/18 at 21:30 Magnesium Hydroxide (Milk Of Magnesia) 2,400 mg PRN QHS PRN PO CONSTIPATION; Start 01/22/18 at 21:30 Lorazepam (Ativan) 0.5 mg QHS PO Last administered on 02/03/18at 20:09; Start at 22:30 Lorazepam (Ativan) 0.5 mg PRN Q4HRS PRN PO ANXIETY / AGITATION Last administered on 01/29/18at 02:15; Start 01/22/18 at 22:30 Quetiapine Fumarate (SEROquel) 50 mg TID PO Last administered on 02/03/18at 20: 09; Start 01/22/18 at 22:30 Acetaminophen (Tylenol) 650 mg PRN Q4HRS PRN PO PAIN; Start 01/22/18 at 22:15; Stop 01/22/18 at 22:24; Status DC Aspirin (Galina Aspirin) 325 mg DAILY PO Last administered on 02/03/18 08:26; Start 01/23/18 at 09:00 Vitamin D (Vitamin D3) 1,000 unit QMWF PO Last administered on 01/26/18 10:44; Start 01/23/18 at 16:00; Stop 01/27/18 at 13:40; Status DC Cyanocobalamin (Vitamin B-12) 1,000 mcg DAILY PO Last administered on 08:26; Start 01/23/18 at 09:00 Diltiazem HCl (Cardizem 24hr Cd) 120 mg DAILY PO Last administered on 01/24/18 07:57; Start 01/23/18 at 09:00; Stop 01/25/18 at 15:15; Status DC Furosemide (Lasix) 20 mg DAILY PO Last administered on 02/03/18 08:25; Start 01/23/18 at 09:00 Ipratropium [place] (Atrovent) 0.2 mg PRN Q4HRS PRN IH SHORTNESS OF BREATH; Start 01/22/18 at 22:15 Albuterol/ Ipratropium (Duoneb) 3 ml PRN QID PRN NEB SHORTNESS OF BREATH; Start 01/22/18 at 22:15 Fish Oil (Fish Oil) 1,000 mg DAILY PO Last administered on 02/03/18 08:25; Start 01/23/18 at 09:00 Potassium Chloride (Klor-Con) 20 meq DAILY PO Last administered on 02/03/18 08 :26; Start 01/23/18 at 09:00 Amiodarone HCl (Cordarone) 200 mg DAILY PO Last administered on 02/02/18 08:22 ; Start 01/23/18 at 09:00 Carvedilol (Coreg) 3.125 mg DAILY PO Last administered on 02/03/18 08:29; Start 01/23/18 at 09:00 Cetirizine HCl (ZyrTEC) 10 mg PRN DAILY PRN PO ALLERGIES Last administered on at 08:45; Start 01/23/18 at 09:00 Non-Formulary Medication (Garlic ) 2,000 mg DAILY PO ; Start 01/23/18 at 09:00; Stop 01/23/18 at 09:00; Status DC Lactobacillus Rhamnosus (Culturelle) 1 cap DAILY PO Last administered on at 08:25; Start 01/23/18 at 09:00 Levothyroxine Sodium (Synthroid) 50 mcg DAILY07 PO Last administered on at 05:46; Start 01/23/18 at 07:00; Stop 01/23/18 at 14:03; Status DC Magnesium Oxide (Magnesium Oxide) 400 mg DAILY PO Last administered on at 08:26; Start 01/23/18 at 09:00 Naproxen (Naprosyn) 500 mg DAILY PO Last administered on 02/03/18at 08:26; Start 01/23/18 at 09:00 Polyethylene Glycol (miraLAX) 17 gm PRN DAILY PRN PO CONSTIPATION; Start at 09:00 Artificial Tears (Refresh Classic) 1 drop PRN DAILY PRN OU DRY EYE; Start 01/22 at 22:45 Acetaminophen (Tylenol) 650 mg PRN Q4HRS PRN PO PAIN / TEMP; Start 01/22/18 at 22:30 Levothyroxine Sodium (Synthroid) 50 mcg DAILY06 PO Last administered on at 06:04; Start 01/24/18 at 06:00; Stop 01/25/18 at 15:10; Status DC Sertraline HCl (Zoloft) 25 mg DAILY PO Last administered on 01/26/18at 10:44; Start 01/24/18 at 09:00; Stop 01/27/18 at 08:59; Status DC Sertraline HCl (Zoloft) 50 mg DAILY PO Last administered on 02/03/18at 08:26; Start 01/27/18 at 09:00 Olanzapine (ZyPREXA ZYDIS) 2.5 mg PRN Q2HR PRN PO PSYCHOSIS Last administered on 02/01/18at 14:25; Start 01/24/18 at 22:00 Levothyroxine Sodium (Synthroid) 75 mcg DAILY06 PO Last administered on 06:18; Start 01/26/18 at 06:00 Fosfomycin Tromethamine (Monurol) 3 gm 1X ONCE PO Last administered on at 18:03; Start 01/25/18 at 16:00; Stop 01/25/18 at 16:01; Status DC Mirtazapine (Remeron) 7.5 mg QHS PO Last administered on 01/26/18at 20:06; Start 01/26/18 at 21:00; Stop 01/27/18 at 18:49; Status DC Naproxen (Naprosyn) 500 mg 1X ONCE PO Last administered on 01/27/18at 08:10; Start 01/27/18 at 08:30; Stop 01/27/18 at 08:32; Status DC Vitamin D (Vitamin D3) 50,000 unit WEEKLY PO Last administered on 02/03/18at 08: 30; Start 01/27/18 at 13:30 Mirtazapine (Remeron) 15 mg QHS PO Last administered on 02/03/18at 20:09; Start 01/27/18 at 21:00 Trazodone HCl (Desyrel) 50 mg PRN QHS PRN PO INSOMNIA, MAY REPEAT X1 Last administered on 01/31/18at 20:04; Start 01/28/18 at 18:30; Stop 02/01/18 at 20:18; Status DC Trazodone HCl (Desyrel) 50 mg HS PO Last administered on 02/03/18at 20:09; Start 02/01/18 at 21:00 Trazodone HCl (Desyrel) 50 mg PRN QHS PRN PO INSOMNIA Last administered on 02/01at 22:28; Start 02/01/18 at 20:30 Active Scripts Active Reported Vitamin D3 (Cholecalciferol (Vitamin D3)) 1,000 Unit Tablet 1,000 Unit PO EVERY FRI,FRI,FRI Vitamin B-12 (Cyanocobalamin (Vitamin B-12)) 1,000 Mcg Tablet 1,000 Mcg PO DAILY Tylenol (Acetaminophen) 325 Mg Tablet 650 Mg PO PRN Q4HRS PRN Systane 0.3-0.4% Eye Drops (Propylene Glycol/Peg 400) 15 Ml Drops 1 Drop OU PRN PRN Synthroid (Levothyroxine Sodium) 50 Mcg Tablet 50 Mcg PO DAILYAC Seroquel (Quetiapine Fumarate) 50 Mg Tablet 50 Mg PO TID Klor-Con M20 (Potassium Chloride) 20 Meq Tab.er.prt 20 Meq PO DAILY Naprosyn (Naproxen) 500 Mg Tablet 500 Mg PO DAILY Miralax (Polyethylene Glycol 3350) 17 Gm Powd.pack 17 Gm PO PRN Q24HRS PRN Magnesium Oxide 400 Mg Tablet 400 Mg PO DAILY Lasix (Furosemide) 20 Mg Tablet 20 Mg PO DAILY Ipratropium [place] 0.2 Mg/1 Ml Solution 0.2 Mg IH PRN Q4HRS PRN Garlic 1,000 Mg Capsule 2,000 Mg PO DAILY Fish Oil 1,000 Mg Capsule ([place]-3 Fatty Acids/Fish Oil) 1 Each Capsule 1 Each PO DAILY Duoneb 0.5-3(2.5) Mg/3 Ml (Albuterol/Ipratropium) 3 Ml Ampul.neb 3 Ml NEB PRN QID PRN Diltiazem 24HR Cd (Diltiazem Hcl) 120 Mg Cap.er.24h 120 Mg PO DAILY Culturelle (Lactobacillus Rhamnosus Gg) 1 Each Capsule 1 Each PO DAILY Carvedilol 3.125 Mg Tablet 3.125 Mg PO DAILY Ativan (Lorazepam) 0.5 Mg Tablet 0.5 Mg PO PRN Q4HRS PRN Ativan (Lorazepam) 0.5 Mg Tablet 0.5 Mg PO HS Aspirin 325 Mg Tablet 325 Mg PO DAILY Amiodarone Hcl 200 Mg Tablet 200 Mg PO DAILY Janiya Allergy (Fexofenadine Hcl) 180 Mg Tablet 180 Mg PO PRN DAILY PRN I have reviewed the current psychotropics carefully including drug interactions. Risk benefit ratio favors no change other than as noted in my dictated progress note. Diagnosis: Problems: (1) Anxiety disorder (2) Dementia in Alzheimer's disease with delusions (3) Dementia in Alzheimer's disease with depression (4) Dementia, vascular, with delusions (5) Dementia, vascular, with depression (6) Impulse control disorder SANDER RASMUSSEN MD Feb 03, 2018 20:13
[2018-02-03] MEDS: traZODone 50 MG TABLET. PO PRN (21:31)
--- NOTE | 2018-02-03 23:57 | PN ---
DATE: 02/02/2018 This late entry 02/02/2018 covers elements not covered in my initial note. SUBJECTIVE: I met with the patient in the evening. The patient slept 6 hours previous evening, compliant with medications, irritable at times with nursing staff, paranoid. REVIEW OF SYSTEMS: No CV, , pulmonary, eye, ENT system symptoms on review. Reliability poor. MENTAL STATUS EXAM: Oriented to herself. Insight, judgment, recent and remote memory, attention, concentration, fund of knowledge poor, consistent with her diagnosis mentioned in my initial note. IMPRESSION: Major neurocognitive disorder, Alzheimer, vascular with delusion, depression, behavioral disturbance; anxiety disorder, unspecified; impulse control disorder, unspecified. PLAN: Continue psychotropics from initial note. Adjust further as clinically indicated. MAN Bridget RASMUSSEN MD DR: CONCETTA/hazel JOB#: [id number] / [id number]
[2018-02-04] MEDS: LEVOTHYROXINE 75 MCG TABLET PO SCH (06:03)
[2018-02-04 06:10] VITALS: BP 152/76
[2018-02-04] MEDS: SERTRALINE 50 MG TABLET. PO SCH (07:53)
[2018-02-04] MEDS: QUEtiapine 50 MG TABLET. PO SCH ×3 (07:53→19:46)
[2018-02-04] MEDS: ASPIRIN 325 MG TABLET PO SCH (07:53)
[2018-02-04] MEDS: CYANOCOBALAMIN (VITAMIN B-12) 1,000 MCG TABLET. PO SCH (07:53)
[2018-02-04] MEDS: OMEGA-3 FATTY ACIDS/FISH OIL 1,000 MG CAPSULE. PO SCH (07:53)
[2018-02-04] MEDS: MAGNESIUM OXIDE 400 MG TABLET PO SCH ×2 (07:53→08:13)
[2018-02-04] MEDS: POTASSIUM CHLORIDE 20 MEQ TABLET.ER. PO SCH (07:54)
[2018-02-04] MEDS: CARVEDILOL 3.125 MG TABLET PO SCH (07:54)
[2018-02-04] MEDS: AMIODARONE HCL 200 MG TABLET PO SCH (07:54)
[2018-02-04] MEDS: LACTOBACILLUS RHAMNOSUS GG 1 CAPSULE. PO SCH ×2 (07:55→08:13)
[2018-02-04] MEDS: FUROSEMIDE 20 MG TABLET PO SCH (07:55)
[2018-02-04] MEDS: NAPROXEN 500 MG TABLET PO SCH (07:55)
[2018-02-04] MEDS: LORazepam 0.5 MG TABLET PO PRN (07:57)
[2018-02-04 16:29] VITALS: BP 135/59
[2018-02-04] MEDS: traZODone 50 MG TABLET. PO SCH (19:45)
[2018-02-04] MEDS: MIRTAZAPINE 15 MG TABLET PO SCH (19:46)
[2018-02-04] MEDS: LORazepam 0.5 MG TABLET PO SCH (19:47)
--- NOTE | 2018-02-04 20:59 | PDOC ---
Exam Note: Aakash Note: Please also refer to the separate dictated note~for this date of service dictated separately.~Patient seen individually. Discussed the patient with Nursing staff reviewed the chart.~Reviewed interim history and current functioning. Reviewed vital signs,~Labs/ Radiology~and current medications noted below. Continue current treatment with the changes noted in the dictated addendum note Assessment: Vital Signs: Vital Signs Date Time Temp Pulse Resp B/P (MAP) Pulse Ox O2 Delivery O2 Flow Rate FiO2 02/04/18 16:29 97.6 54 16 135/59 (84) 100 02/04/18 06:10 Room Air I&O Intake and Output 02/04/18 07:00 Intake Total 1080 ml Balance 1080 ml Intake Oral 1080 ml # Bowel Movements 1 Current Medications: Meds: Current Medications Acetaminophen (Tylenol) 650 mg PRN Q6HRS PRN PO PAIN / TEMP; Start 01/22/18 at 21:30; Stop 01/22/18 at 22:23; Status DC Multi-Ingredient Ointment (Analgesic [place]) 1 morenita PRN QID PRN TP MUSCLE PAIN; Start 01/22/18 at 21:30 Al Hydroxide/Mg Hydroxide (Mylanta Plus Xs) 15 ml PRN AFTMEALHC PRN PO DYSPEPSIA; Start 01/22/18 at 21:30 Magnesium Hydroxide (Milk Of Magnesia) 2,400 mg PRN QHS PRN PO CONSTIPATION; Start 01/22/18 at 21:30 Lorazepam (Ativan) 0.5 mg QHS PO Last administered on 02/04/18at 19:47; Start at 22:30 Lorazepam (Ativan) 0.5 mg PRN Q4HRS PRN PO ANXIETY / AGITATION Last administered on 02/04/18at 07:57; Start 01/22/18 at 22:30 Quetiapine Fumarate (SEROquel) 50 mg TID PO Last administered on 02/04/18at 19: 46; Start 01/22/18 at 22:30 Acetaminophen (Tylenol) 650 mg PRN Q4HRS PRN PO PAIN; Start 01/22/18 at 22:15; Stop 01/22/18 at 22:24; Status DC Aspirin ([place] Aspirin) 325 mg DAILY PO Last administered on 02/04/18at 07:53; Start 01/23/18 at 09:00 Vitamin D (Vitamin D3) 1,000 unit QMWF PO Last administered on 01/26/18 10:44; Start 01/23/18 at 16:00; Stop 01/27/18 at 13:40; Status DC Cyanocobalamin (Vitamin B-12) 1,000 mcg DAILY PO Last administered on 07:53; Start 01/23/18 at 09:00 Diltiazem HCl (Cardizem 24hr Cd) 120 mg DAILY PO Last administered on 01/24/18 07:57; Start 01/23/18 at 09:00; Stop 01/25/18 at 15:15; Status DC Furosemide (Lasix) 20 mg DAILY PO Last administered on 02/04/18 07:55; Start 01/23/18 at 09:00 Ipratropium [place] (Atrovent) 0.2 mg PRN Q4HRS PRN IH SHORTNESS OF BREATH; Start 01/22/18 at 22:15 Albuterol/ Ipratropium (Duoneb) 3 ml PRN QID PRN NEB SHORTNESS OF BREATH; Start 01/22/18 at 22:15 Fish Oil (Fish Oil) 1,000 mg DAILY PO Last administered on 02/04/18 07:53; Start 01/23/18 at 09:00 Potassium Chloride (Klor-Con) 20 meq DAILY PO Last administered on 02/04/18 07 :54; Start 01/23/18 at 09:00 Amiodarone HCl (Cordarone) 200 mg DAILY PO Last administered on 02/04/18 07:54 ; Start 01/23/18 at 09:00 Carvedilol (Coreg) 3.125 mg DAILY PO Last administered on 02/04/18 07:54; Start 01/23/18 at 09:00 Cetirizine HCl (ZyrTEC) 10 mg PRN DAILY PRN PO ALLERGIES Last administered on 08:45; Start 01/23/18 at 09:00 Non-Formulary Medication (Garlic ) 2,000 mg DAILY PO ; Start 01/23/18 at 09:00; Stop 01/23/18 at 09:00; Status DC Lactobacillus Rhamnosus (Culturelle) 1 cap DAILY PO Last administered on 6/12/ 18at 08:25; Start 01/23/18 at 09:00 Levothyroxine Sodium (Synthroid) 50 mcg DAILY07 PO Last administered on at 05:46; Start 01/23/18 at 07:00; Stop 01/23/18 at 14:03; Status DC Magnesium Oxide (Magnesium Oxide) 400 mg DAILY PO Last administered on at 08:26; Start 01/23/18 at 09:00 Naproxen (Naprosyn) 500 mg DAILY PO Last administered on 02/04/18at 07:55; Start 01/23/18 at 09:00 Polyethylene Glycol (miraLAX) 17 gm PRN DAILY PRN PO CONSTIPATION; Start at 09:00 Artificial Tears (Refresh Classic) 1 drop PRN DAILY PRN OU DRY EYE; Start 01/22 at 22:45 Acetaminophen (Tylenol) 650 mg PRN Q4HRS PRN PO PAIN / TEMP; Start 01/22/18 at 22:30 Levothyroxine Sodium (Synthroid) 50 mcg DAILY06 PO Last administered on at 06:04; Start 01/24/18 at 06:00; Stop 01/25/18 at 15:10; Status DC Sertraline HCl (Zoloft) 25 mg DAILY PO Last administered on 01/26/18at 10:44; Start 01/24/18 at 09:00; Stop 01/27/18 at 08:59; Status DC Sertraline HCl (Zoloft) 50 mg DAILY PO Last administered on 02/04/18at 07:53; Start 01/27/18 at 09:00 Olanzapine (ZyPREXA ZYDIS) 2.5 mg PRN Q2HR PRN PO PSYCHOSIS Last administered on 02/03/18at 21:31; Start 01/24/18 at 22:00 Levothyroxine Sodium (Synthroid) 75 mcg DAILY06 PO Last administered on at 06:03; Start 01/26/18 at 06:00 Fosfomycin Tromethamine (Monurol) 3 gm 1X ONCE PO Last administered on at 18:03; Start 01/25/18 at 16:00; Stop 01/25/18 at 16:01; Status DC Mirtazapine (Remeron) 7.5 mg QHS PO Last administered on 01/26/18 20:06; Start 01/26/18 at 21:00; Stop 01/27/18 at 18:49; Status DC Naproxen (Naprosyn) 500 mg 1X ONCE PO Last administered on 01/27/18 08:10; Start 01/27/18 at 08:30; Stop 01/27/18 at 08:32; Status DC Vitamin D (Vitamin D3) 50,000 unit WEEKLY PO Last administered on 02/03/18at 08: 30; Start 01/27/18 at 13:30 Mirtazapine (Remeron) 15 mg QHS PO Last administered on 02/04/18 19:46; Start 01/27/18 at 21:00 Trazodone HCl (Desyrel) 50 mg PRN QHS PRN PO INSOMNIA, MAY REPEAT X1 Last administered on 01/31/18at 20:04; Start 01/28/18 at 18:30; Stop 02/01/18 at 20:18; Status DC Trazodone HCl (Desyrel) 50 mg HS PO Last administered on 02/04/18 19:45; Start 02/01/18 at 21:00 Trazodone HCl (Desyrel) 50 mg PRN QHS PRN PO INSOMNIA Last administered on 02/03 21:31; Start 02/01/18 at 20:30 Active Scripts Active Reported Vitamin D3 (Cholecalciferol (Vitamin D3)) 1,000 Unit Tablet 1,000 Unit PO EVERY FRI,FRI,FRI Vitamin B-12 (Cyanocobalamin (Vitamin B-12)) 1,000 Mcg Tablet 1,000 Mcg PO DAILY Tylenol (Acetaminophen) 325 Mg Tablet 650 Mg PO PRN Q4HRS PRN Systane 0.3-0.4% Eye Drops (Propylene Glycol/Peg 400) 15 Ml Drops 1 Drop OU PRN PRN Synthroid (Levothyroxine Sodium) 50 Mcg Tablet 50 Mcg PO DAILYAC Seroquel (Quetiapine Fumarate) 50 Mg Tablet 50 Mg PO TID Klor-Con M20 (Potassium Chloride) 20 Meq Tab.er.prt 20 Meq PO DAILY Naprosyn (Naproxen) 500 Mg Tablet 500 Mg PO DAILY Miralax (Polyethylene Glycol 3350) 17 Gm Powd.pack 17 Gm PO PRN Q24HRS PRN Magnesium Oxide 400 Mg Tablet 400 Mg PO DAILY Lasix (Furosemide) 20 Mg Tablet 20 Mg PO DAILY Ipratropium [place] 0.2 Mg/1 Ml Solution 0.2 Mg IH PRN Q4HRS PRN Garlic 1,000 Mg Capsule 2,000 Mg PO DAILY Fish Oil 1,000 Mg Capsule ([place]-3 Fatty Acids/Fish Oil) 1 Each Capsule 1 Each PO DAILY Duoneb 0.5-3(2.5) Mg/3 Ml (Albuterol/Ipratropium) 3 Ml Ampul.neb 3 Ml NEB PRN QID PRN Diltiazem 24HR Cd (Diltiazem Hcl) 120 Mg Cap.er.24h 120 Mg PO DAILY Culturelle (Lactobacillus Rhamnosus Gg) 1 Each Capsule 1 Each PO DAILY Carvedilol 3.125 Mg Tablet 3.125 Mg PO DAILY Ativan (Lorazepam) 0.5 Mg Tablet 0.5 Mg PO PRN Q4HRS PRN Ativan (Lorazepam) 0.5 Mg Tablet 0.5 Mg PO HS Aspirin 325 Mg Tablet 325 Mg PO DAILY Amiodarone Hcl 200 Mg Tablet 200 Mg PO DAILY Janiya Allergy (Fexofenadine Hcl) 180 Mg Tablet 180 Mg PO PRN DAILY PRN I have reviewed the current psychotropics carefully including drug interactions. Risk benefit ratio favors no change other than as noted in my dictated progress note. Diagnosis: Problems: (1) Anxiety disorder (2) Dementia in Alzheimer's disease with delusions (3) Dementia in Alzheimer's disease with depression (4) Dementia, vascular, with delusions (5) Dementia, vascular, with depression (6) Impulse control disorder SANDER RASMUSSEN MD Feb 04, 2018 20:59
[2018-02-04] MEDS: traZODone 50 MG TABLET. PO PRN (22:07)
--- NOTE | 2018-02-05 05:01 | PN ---
DATE: 02/03/2018 PSYCHIATRIC PROGRESS NOTE This is a late entry of 02/03/2018, covers elements not covered in my initial note of 02/03/2018. SUBJECTIVE: I met with the patient in the evening. The patient slept 8 hours previous evening, has been pleasant, confused, and compliant with medications. She had a large bowel movement, less agitated after that. REVIEW OF SYSTEMS: No CV, , pulmonary, eye, ENT system symptoms on review. MENTAL STATUS EXAM: Oriented to herself. Insight, judgment, recent and remote memory, attention, concentration, fund of knowledge poor, consistent with her diagnosis mentioned in my initial note. PLAN: Continue current psychotropics. Adjust as clinically indicated. SANDER RASMUSSEN MD DR: CONCETTA/hazel JOB#: [id number] / [id number]
[2018-02-05] MEDS: LEVOTHYROXINE 75 MCG TABLET PO SCH (05:49)
[2018-02-05 08:35] LABS: FECAL OB PT POSITIVE (NEG)
[2018-02-05] MEDS: MAGNESIUM OXIDE 400 MG TABLET PO SCH (09:17)
[2018-02-05] MEDS: LACTOBACILLUS RHAMNOSUS GG 1 CAPSULE. PO SCH (09:18)
[2018-02-05] MEDS: CARVEDILOL 3.125 MG TABLET PO SCH (09:19)
[2018-02-05] MEDS: OMEGA-3 FATTY ACIDS/FISH OIL 1,000 MG CAPSULE. PO SCH (09:20)
[2018-02-05] MEDS: POTASSIUM CHLORIDE 20 MEQ TABLET.ER. PO SCH (09:20)
[2018-02-05] MEDS: AMIODARONE HCL 200 MG TABLET PO SCH (09:20)
[2018-02-05] MEDS: SERTRALINE 50 MG TABLET. PO SCH (09:21)
[2018-02-05] MEDS: NAPROXEN 500 MG TABLET PO SCH (09:21)
[2018-02-05] MEDS: QUEtiapine 50 MG TABLET. PO SCH ×3 (09:21→19:59)
[2018-02-05] MEDS: FUROSEMIDE 20 MG TABLET PO SCH (09:21)
[2018-02-05] MEDS: ASPIRIN 325 MG TABLET PO SCH (09:21)
[2018-02-05] MEDS: CYANOCOBALAMIN (VITAMIN B-12) 1,000 MCG TABLET. PO SCH (09:21)
[2018-02-05 16:53] VITALS: BP 137/73
[2018-02-05] MEDS: traZODone 50 MG TABLET. PO SCH (19:58)
[2018-02-05] MEDS: LORazepam 0.5 MG TABLET PO SCH (19:58)
[2018-02-05] MEDS: MIRTAZAPINE 15 MG TABLET PO SCH (19:59)
--- NOTE | 2018-02-05 22:31 | PDOC ---
Exam Note: Aakash Note: Please also refer to the separate dictated note~for this date of service dictated separately.~Patient seen individually. Discussed the patient with Nursing staff reviewed the chart.~Reviewed interim history and current functioning. Reviewed vital signs,~Labs/ Radiology~and current medications noted below. Continue current treatment with the changes noted in the dictated addendum note Assessment: Vital Signs: Vital Signs Date Time Temp Pulse Resp B/P (MAP) Pulse Ox O2 Delivery O2 Flow Rate FiO2 02/05/18 16:53 97.3 61 17 137/73 (94) 96 Room Air I&O Intake and Output 02/05/18 07:00 Intake Total 680 ml Balance 680 ml Intake Oral 680 ml # Voids 1 # Bowel Movements 2 Labs: Laboratory Tests Test 02/05/18 07:53 Stool Occult Blood Positive (NEG) Current Medications: Meds: Current Medications Acetaminophen (Tylenol) 650 mg PRN Q6HRS PRN PO PAIN / TEMP; Start 01/22/18 at 21:30; Stop 01/22/18 at 22:23; Status DC Multi-Ingredient Ointment (Analgesic [place]) 1 morenita PRN QID PRN TP MUSCLE PAIN; Start 01/22/18 at 21:30 Al Hydroxide/Mg Hydroxide (Mylanta Plus Xs) 15 ml PRN AFTMEALHC PRN PO DYSPEPSIA; Start 01/22/18 at 21:30 Magnesium Hydroxide (Milk Of Magnesia) 2,400 mg PRN QHS PRN PO CONSTIPATION; Start 01/22/18 at 21:30 Lorazepam (Ativan) 0.5 mg QHS PO Last administered on 02/04/18at 19:47; Start at 22:30; Stop 02/05/18 at 10:55; Status DC Lorazepam (Ativan) 0.5 mg PRN Q4HRS PRN PO ANXIETY / AGITATION Last administered on 02/04/18at 07:57; Start 01/22/18 at 22:30 Quetiapine Fumarate (SEROquel) 50 mg TID PO Last administered on 02/05/18at 19: 59; Start 01/22/18 at 22:30 Acetaminophen (Tylenol) 650 mg PRN Q4HRS PRN PO PAIN; Start 01/22/18 at 22:15; Stop 01/22/18 at 22:24; Status DC Aspirin ([place] Aspirin) 325 mg DAILY PO Last administered on 02/05/18 09:21; Start 01/23/18 at 09:00; Stop 02/05/18 at 18:03; Status DC Vitamin D (Vitamin D3) 1,000 unit QMWF PO Last administered on 01/26/18 10:44; Start 01/23/18 at 16:00; Stop 01/27/18 at 13:40; Status DC Cyanocobalamin (Vitamin B-12) 1,000 mcg DAILY PO Last administered on 09:21; Start 01/23/18 at 09:00 Diltiazem HCl (Cardizem 24hr Cd) 120 mg DAILY PO Last administered on 01/24/18 07:57; Start 01/23/18 at 09:00; Stop 01/25/18 at 15:15; Status DC Furosemide (Lasix) 20 mg DAILY PO Last administered on 02/05/18 09:21; Start 01/23/18 at 09:00 Ipratropium [place] (Atrovent) 0.2 mg PRN Q4HRS PRN IH SHORTNESS OF BREATH; Start 01/22/18 at 22:15 Albuterol/ Ipratropium (Duoneb) 3 ml PRN QID PRN NEB SHORTNESS OF BREATH; Start 01/22/18 at 22:15 Fish Oil (Fish Oil) 1,000 mg DAILY PO Last administered on 02/05/18 09:20; Start 01/23/18 at 09:00 Potassium Chloride (Klor-Con) 20 meq DAILY PO Last administered on 02/05/18 09 :20; Start 01/23/18 at 09:00 Amiodarone HCl (Cordarone) 200 mg DAILY PO Last administered on 02/05/18 09:20 ; Start 01/23/18 at 09:00 Carvedilol (Coreg) 3.125 mg DAILY PO Last administered on 02/05/18 09:19; Start 01/23/18 at 09:00 Cetirizine HCl (ZyrTEC) 10 mg PRN DAILY PRN PO ALLERGIES Last administered on 08:45; Start 01/23/18 at 09:00 Non-Formulary Medication (Garlic ) 2,000 mg DAILY PO ; Start 01/23/18 at 09:00; Stop 01/23/18 at 09:00; Status DC Lactobacillus Rhamnosus (Culturelle) 1 cap DAILY PO Last administered on at 09:18; Start 01/23/18 at 09:00 Levothyroxine Sodium (Synthroid) 50 mcg DAILY07 PO Last administered on at 05:46; Start 01/23/18 at 07:00; Stop 01/23/18 at 14:03; Status DC Magnesium Oxide (Magnesium Oxide) 400 mg DAILY PO Last administered on at 09:17; Start 01/23/18 at 09:00 Naproxen (Naprosyn) 500 mg DAILY PO Last administered on 02/05/18at 09:21; Start 01/23/18 at 09:00; Stop 02/05/18 at 18:03; Status DC Polyethylene Glycol (miraLAX) 17 gm PRN DAILY PRN PO CONSTIPATION; Start at 09:00 Artificial Tears (Refresh Classic) 1 drop PRN DAILY PRN OU DRY EYE; Start 01/22 at 22:45 Acetaminophen (Tylenol) 650 mg PRN Q4HRS PRN PO PAIN / TEMP; Start 01/22/18 at 22:30 Levothyroxine Sodium (Synthroid) 50 mcg DAILY06 PO Last administered on at 06:04; Start 01/24/18 at 06:00; Stop 01/25/18 at 15:10; Status DC Sertraline HCl (Zoloft) 25 mg DAILY PO Last administered on 01/26/18at 10:44; Start 01/24/18 at 09:00; Stop 01/27/18 at 08:59; Status DC Sertraline HCl (Zoloft) 50 mg DAILY PO Last administered on 02/05/18at 09:21; Start 01/27/18 at 09:00 Olanzapine (ZyPREXA ZYDIS) 2.5 mg PRN Q2HR PRN PO PSYCHOSIS Last administered on 02/03/18at 21:31; Start 01/24/18 at 22:00 Levothyroxine Sodium (Synthroid) 75 mcg DAILY06 PO Last administered on at 05:49; Start 01/26/18 at 06:00 Fosfomycin Tromethamine (Monurol) 3 gm 1X ONCE PO Last administered on at 18:03; Start 01/25/18 at 16:00; Stop 01/25/18 at 16:01; Status DC Mirtazapine (Remeron) 7.5 mg QHS PO Last administered on 01/26/18at 20:06; Start 01/26/18 at 21:00; Stop 01/27/18 at 18:49; Status DC Naproxen (Naprosyn) 500 mg 1X ONCE PO Last administered on 01/27/18at 08:10; Start 01/27/18 at 08:30; Stop 01/27/18 at 08:32; Status DC Vitamin D (Vitamin D3) 50,000 unit WEEKLY PO Last administered on 02/03/18at 08: 30; Start 01/27/18 at 13:30 Mirtazapine (Remeron) 15 mg QHS PO Last administered on 02/05/18at 19:59; Start 01/27/18 at 21:00 Trazodone HCl (Desyrel) 50 mg PRN QHS PRN PO INSOMNIA, MAY REPEAT X1 Last administered on 01/31/18at 20:04; Start 01/28/18 at 18:30; Stop 02/01/18 at 20:18; Status DC Trazodone HCl (Desyrel) 50 mg HS PO Last administered on 02/05/18at 19:58; Start 02/01/18 at 21:00 Trazodone HCl (Desyrel) 50 mg PRN QHS PRN PO INSOMNIA Last administered on 02/04at 22:07; Start 02/01/18 at 20:30 Lorazepam (Ativan) 0.25 mg QHS PO Last administered on 02/05/18at 19:58; Start 02/05/18 at 21:00; Stop 02/06/18 at 21:01 Active Scripts Active Reported Vitamin D3 (Cholecalciferol (Vitamin D3)) 1,000 Unit Tablet 1,000 Unit PO EVERY FRI,FRI,FRI Vitamin B-12 (Cyanocobalamin (Vitamin B-12)) 1,000 Mcg Tablet 1,000 Mcg PO DAILY Tylenol (Acetaminophen) 325 Mg Tablet 650 Mg PO PRN Q4HRS PRN Systane 0.3-0.4% Eye Drops (Propylene Glycol/Peg 400) 15 Ml Drops 1 Drop OU PRN PRN Synthroid (Levothyroxine Sodium) 50 Mcg Tablet 50 Mcg PO DAILYAC Seroquel (Quetiapine Fumarate) 50 Mg Tablet 50 Mg PO TID Klor-Con M20 (Potassium Chloride) 20 Meq Tab.er.prt 20 Meq PO DAILY Naprosyn (Naproxen) 500 Mg Tablet 500 Mg PO DAILY Miralax (Polyethylene Glycol 3350) 17 Gm Powd.pack 17 Gm PO PRN Q24HRS PRN Magnesium Oxide 400 Mg Tablet 400 Mg PO DAILY Lasix (Furosemide) 20 Mg Tablet 20 Mg PO DAILY Ipratropium [place] 0.2 Mg/1 Ml Solution 0.2 Mg IH PRN Q4HRS PRN Garlic 1,000 Mg Capsule 2,000 Mg PO DAILY Fish Oil 1,000 Mg Capsule ([place]-3 Fatty Acids/Fish Oil) 1 Each Capsule 1 Each PO DAILY Duoneb 0.5-3(2.5) Mg/3 Ml (Albuterol/Ipratropium) 3 Ml Ampul.neb 3 Ml NEB PRN QID PRN Diltiazem 24HR Cd (Diltiazem Hcl) 120 Mg Cap.er.24h 120 Mg PO DAILY Culturelle (Lactobacillus Rhamnosus Gg) 1 Each Capsule 1 Each PO DAILY Carvedilol 3.125 Mg Tablet 3.125 Mg PO DAILY Ativan (Lorazepam) 0.5 Mg Tablet 0.5 Mg PO PRN Q4HRS PRN Ativan (Lorazepam) 0.5 Mg Tablet 0.5 Mg PO HS Aspirin 325 Mg Tablet 325 Mg PO DAILY Amiodarone Hcl 200 Mg Tablet 200 Mg PO DAILY Janiya Allergy (Fexofenadine Hcl) 180 Mg Tablet 180 Mg PO PRN DAILY PRN I have reviewed the current psychotropics carefully including drug interactions. Risk benefit ratio favors no change other than as noted in my dictated progress note. Diagnosis: Problems: (1) Anxiety disorder (2) Dementia in Alzheimer's disease with delusions (3) Dementia in Alzheimer's disease with depression (4) Dementia, vascular, with delusions (5) Dementia, vascular, with depression (6) Impulse control disorder SANDER RASMUSSEN MD Feb 05, 2018 22:31
[2018-02-06] MEDS: ACETAMINOPHEN 325 MG TABLET PO PRN (00:30)
[2018-02-06] MEDS: traZODone 50 MG TABLET. PO PRN ×2 (00:30→23:35)
[2018-02-06] MEDS: LEVOTHYROXINE 75 MCG TABLET PO SCH (05:56)
[2018-02-06 07:02] VITALS: BP 160/84
[2018-02-06] MEDS: OMEGA-3 FATTY ACIDS/FISH OIL 1,000 MG CAPSULE. PO SCH (07:45)
[2018-02-06] MEDS: MAGNESIUM OXIDE 400 MG TABLET PO SCH (07:45)
[2018-02-06] MEDS: CYANOCOBALAMIN (VITAMIN B-12) 1,000 MCG TABLET. PO SCH (07:45)
[2018-02-06] MEDS: CARVEDILOL 3.125 MG TABLET PO SCH (07:45)
[2018-02-06] MEDS: LACTOBACILLUS RHAMNOSUS GG 1 CAPSULE. PO SCH (07:45)
[2018-02-06] MEDS: FUROSEMIDE 20 MG TABLET PO SCH (07:45)
[2018-02-06] MEDS: AMIODARONE HCL 200 MG TABLET PO SCH (07:45)
[2018-02-06] MEDS: POTASSIUM CHLORIDE 20 MEQ TABLET.ER. PO SCH (07:46)
[2018-02-06] MEDS: QUEtiapine 50 MG TABLET. PO SCH ×3 (07:46→19:40)
[2018-02-06] MEDS: SERTRALINE 50 MG TABLET. PO SCH (07:46)
[2018-02-06 08:24] LABS: HEMOGLOBIN 12.3 g/dL (12.0-15.5); RED BLOOD COUNT 3.96 x10^6/uL (3.50-5.40); RED CELL DISTRIBUTION WIDTH 14.1 % (11.5-14.5); WHITE BLOOD COUNT 5.2 x10^3/uL (4.0-11.0)
[2018-02-06 08:32] LABS: ALBUMIN 3.1 g/dL (3.4-5.0); CALCIUM 8.3 mg/dL (8.5-10.1); CREATININE 1.1 mg/dL (0.6-1.0); GFR 47.7; POTASSIUM 4.1 mmol/L (3.5-5.1); TOTAL BILIRUBIN 0.4 mg/dL (0.2-1.0); TOTAL PROTEIN 6.3 g/dL (6.4-8.2)
[2018-02-06 16:40] VITALS: BP 116/50
[2018-02-06] MEDS: traZODone 50 MG TABLET. PO SCH (19:41)
[2018-02-06] MEDS: MIRTAZAPINE 15 MG TABLET PO SCH (19:43)
[2018-02-06] MEDS: LORazepam 0.5 MG TABLET PO SCH (19:48)
--- NOTE | 2018-02-06 22:32 | PDOC ---
Exam Note: Aakash Note: Please also refer to the separate dictated note~for this date of service dictated separately.~Patient seen individually. Discussed the patient with Nursing staff reviewed the chart.~Reviewed interim history and current functioning. Reviewed vital signs,~Labs/ Radiology~and current medications noted below. Continue current treatment with the changes noted in the dictated addendum note Assessment: Vital Signs: Vital Signs Date Time Temp Pulse Resp B/P (MAP) Pulse Ox O2 Delivery O2 Flow Rate FiO2 02/06/18 16:40 97.9 47 16 116/50 (72) 95 Room Air I&O Intake and Output 02/06/18 07:00 Intake Total 1720 ml Balance 1720 ml Intake Oral 1720 ml # Voids 1 # Bowel Movements 2 Labs: Laboratory Tests Test 02/06/18 07:54 White Blood Count 5.2 x10^3/uL (4.0-11.0) Red Blood Count 3.96 x10^6/uL (3.50-5.40) Hemoglobin 12.3 g/dL (12.0-15.5) Hematocrit 37.0 % (36.0-47.0) Mean Corpuscular Volume 93 fL (79-100) Mean Corpuscular Hemoglobin 31 pg (25-35) Mean Corpuscular Hemoglobin Concent 33 g/dL (31-37) Red Cell Distribution Width 14.1 % (11.5-14.5) Platelet Count 223 x10^3/uL (140-400) Sodium Level 143 mmol/L (136-145) Potassium Level 4.1 mmol/L (3.5-5.1) Chloride Level 109 mmol/L (98-107) H Carbon Dioxide Level 26 mmol/L (21-32) Anion Gap 8 (6-14) Blood Urea Nitrogen 22 mg/dL (7-20) H Creatinine 1.1 mg/dL (0.6-1.0) H Estimated GFR (Cockcroft-Gault) 47.7 BUN/Creatinine Ratio 20 (6-20) Glucose Level 84 mg/dL (70-99) Calcium Level 8.3 mg/dL (8.5-10.1) L Total Bilirubin 0.4 mg/dL (0.2-1.0) Aspartate Amino Transferase (AST) 18 U/L (15-37) Alanine Aminotransferase (ALT) 16 U/L (14-59) Alkaline Phosphatase 90 U/L (46-116) Total Protein 6.3 g/dL (6.4-8.2) L Albumin 3.1 g/dL (3.4-5.0) L Albumin/Globulin Ratio 1.0 (1.0-1.7) Current Medications: Meds: Current Medications Acetaminophen (Tylenol) 650 mg PRN Q6HRS PRN PO PAIN / TEMP; Start 01/22/18 at 21:30; Stop 01/22/18 at 22:23; Status DC Multi-Ingredient Ointment (Analgesic [place]) 1 morenita PRN QID PRN TP MUSCLE PAIN Last administered on 02/06/18at 00:30; Start 01/22/18 at 21:30 Al Hydroxide/Mg Hydroxide (Mylanta Plus Xs) 15 ml PRN AFTMEALHC PRN PO DYSPEPSIA; Start 01/22/18 at 21:30 Magnesium Hydroxide (Milk Of Magnesia) 2,400 mg PRN QHS PRN PO CONSTIPATION; Start 01/22/18 at 21:30 Lorazepam (Ativan) 0.5 mg QHS PO Last administered on 02/04/18at 19:47; Start at 22:30; Stop 02/05/18 at 10:55; Status DC Lorazepam (Ativan) 0.5 mg PRN Q4HRS PRN PO ANXIETY / AGITATION Last administered on 02/04/18at 07:57; Start 01/22/18 at 22:30 Quetiapine Fumarate (SEROquel) 50 mg TID PO Last administered on 02/06/18at 19: 40; Start 01/22/18 at 22:30 Acetaminophen (Tylenol) 650 mg PRN Q4HRS PRN PO PAIN; Start 01/22/18 at 22:15; Stop 01/22/18 at 22:24; Status DC Aspirin ([place] Aspirin) 325 mg DAILY PO Last administered on 02/05/18at 09:21; Start 01/23/18 at 09:00; Stop 02/05/18 at 18:03; Status DC Vitamin D (Vitamin D3) 1,000 unit QMWF PO Last administered on 01/26/18at 10:44; Start 01/23/18 at 16:00; Stop 01/27/18 at 13:40; Status DC Cyanocobalamin (Vitamin B-12) 1,000 mcg DAILY PO Last administered on at 07:45; Start 01/23/18 at 09:00 Diltiazem HCl (Cardizem 24hr Cd) 120 mg DAILY PO Last administered on 01/24/18at 07:57; Start 01/23/18 at 09:00; Stop 01/25/18 at 15:15; Status DC Furosemide (Lasix) 20 mg DAILY PO Last administered on 02/06/18at 07:45; Start 01/23/18 at 09:00 Ipratropium [place] (Atrovent) 0.2 mg PRN Q4HRS PRN IH SHORTNESS OF BREATH; Start 01/22/18 at 22:15 Albuterol/ Ipratropium (Duoneb) 3 ml PRN QID PRN NEB SHORTNESS OF BREATH; Start 01/22/18 at 22:15 Fish Oil (Fish Oil) 1,000 mg DAILY PO Last administered on 02/06/18at 07:45; Start 01/23/18 at 09:00 Potassium Chloride (Klor-Con) 20 meq DAILY PO Last administered on 02/06/18at 07 :46; Start 01/23/18 at 09:00 Amiodarone HCl (Cordarone) 200 mg DAILY PO Last administered on 02/06/18at 07:45 ; Start 01/23/18 at 09:00 Carvedilol (Coreg) 3.125 mg DAILY PO Last administered on 02/06/18at 07:45; Start 01/23/18 at 09:00 Cetirizine HCl (ZyrTEC) 10 mg PRN DAILY PRN PO ALLERGIES Last administered on at 08:45; Start 01/23/18 at 09:00 Non-Formulary Medication (Garlic ) 2,000 mg DAILY PO ; Start 01/23/18 at 09:00; Stop 01/23/18 at 09:00; Status DC Lactobacillus Rhamnosus (Culturelle) 1 cap DAILY PO Last administered on at 07:45; Start 01/23/18 at 09:00 Levothyroxine Sodium (Synthroid) 50 mcg DAILY07 PO Last administered on at 05:46; Start 01/23/18 at 07:00; Stop 01/23/18 at 14:03; Status DC Magnesium Oxide (Magnesium Oxide) 400 mg DAILY PO Last administered on at 07:45; Start 01/23/18 at 09:00 Naproxen (Naprosyn) 500 mg DAILY PO Last administered on 02/05/18at 09:21; Start 01/23/18 at 09:00; Stop 02/05/18 at 18:03; Status DC Polyethylene Glycol (miraLAX) 17 gm PRN DAILY PRN PO CONSTIPATION; Start at 09:00 Artificial Tears (Refresh Classic) 1 drop PRN DAILY PRN OU DRY EYE; Start 01/22 at 22:45 Acetaminophen (Tylenol) 650 mg PRN Q4HRS PRN PO PAIN / TEMP Last administered on 02/06/18at 00:30; Start 01/22/18 at 22:30 Levothyroxine Sodium (Synthroid) 50 mcg DAILY06 PO Last administered on at 06:04; Start 01/24/18 at 06:00; Stop 01/25/18 at 15:10; Status DC Sertraline HCl (Zoloft) 25 mg DAILY PO Last administered on 01/26/18at 10:44; Start 01/24/18 at 09:00; Stop 01/27/18 at 08:59; Status DC Sertraline HCl (Zoloft) 50 mg DAILY PO Last administered on 02/06/18at 07:46; Start 01/27/18 at 09:00 Olanzapine (ZyPREXA ZYDIS) 2.5 mg PRN Q2HR PRN PO PSYCHOSIS Last administered on 02/03/18at 21:31; Start 01/24/18 at 22:00 Levothyroxine Sodium (Synthroid) 75 mcg DAILY06 PO Last administered on at 05:56; Start 01/26/18 at 06:00 Fosfomycin Tromethamine (Monurol) 3 gm 1X ONCE PO Last administered on at 18:03; Start 01/25/18 at 16:00; Stop 01/25/18 at 16:01; Status DC Mirtazapine (Remeron) 7.5 mg QHS PO Last administered on 01/26/18at 20:06; Start 01/26/18 at 21:00; Stop 01/27/18 at 18:49; Status DC Naproxen (Naprosyn) 500 mg 1X ONCE PO Last administered on 01/27/18at 08:10; Start 01/27/18 at 08:30; Stop 01/27/18 at 08:32; Status DC Vitamin D (Vitamin D3) 50,000 unit WEEKLY PO Last administered on 02/03/18at 08: 30; Start 01/27/18 at 13:30 Mirtazapine (Remeron) 15 mg QHS PO Last administered on 02/06/18at 19:43; Start 01/27/18 at 21:00 Trazodone HCl (Desyrel) 50 mg PRN QHS PRN PO INSOMNIA, MAY REPEAT X1 Last administered on 01/31/18at 20:04; Start 01/28/18 at 18:30; Stop 02/01/18 at 20:18; Status DC Trazodone HCl (Desyrel) 50 mg HS PO Last administered on 02/06/18at 19:41; Start 02/01/18 at 21:00 Trazodone HCl (Desyrel) 50 mg PRN QHS PRN PO INSOMNIA Last administered on 02/06at 00:30; Start 02/01/18 at 20:30 Lorazepam (Ativan) 0.25 mg QHS PO Last administered on 02/06/18at 19:48; Start 02/05/18 at 21:00; Stop 02/06/18 at 21:02; Status DC Active Scripts Active Reported Vitamin D3 (Cholecalciferol (Vitamin D3)) 1,000 Unit Tablet 1,000 Unit PO EVERY FRI,FRI,FRI Vitamin B-12 (Cyanocobalamin (Vitamin B-12)) 1,000 Mcg Tablet 1,000 Mcg PO DAILY Tylenol (Acetaminophen) 325 Mg Tablet 650 Mg PO PRN Q4HRS PRN Systane 0.3-0.4% Eye Drops (Propylene Glycol/Peg 400) 15 Ml Drops 1 Drop OU PRN PRN Synthroid (Levothyroxine Sodium) 50 Mcg Tablet 50 Mcg PO DAILYAC Seroquel (Quetiapine Fumarate) 50 Mg Tablet 50 Mg PO TID Klor-Con M20 (Potassium Chloride) 20 Meq Tab.er.prt 20 Meq PO DAILY Naprosyn (Naproxen) 500 Mg Tablet 500 Mg PO DAILY Miralax (Polyethylene Glycol 3350) 17 Gm Powd.pack 17 Gm PO PRN Q24HRS PRN Magnesium Oxide 400 Mg Tablet 400 Mg PO DAILY Lasix (Furosemide) 20 Mg Tablet 20 Mg PO DAILY Ipratropium [place] 0.2 Mg/1 Ml Solution 0.2 Mg IH PRN Q4HRS PRN Garlic 1,000 Mg Capsule 2,000 Mg PO DAILY Fish Oil 1,000 Mg Capsule ([place]-3 Fatty Acids/Fish Oil) 1 Each Capsule 1 Each PO DAILY Duoneb 0.5-3(2.5) Mg/3 Ml (Albuterol/Ipratropium) 3 Ml Ampul.neb 3 Ml NEB PRN QID PRN Diltiazem 24HR Cd (Diltiazem Hcl) 120 Mg Cap.er.24h 120 Mg PO DAILY Culturelle (Lactobacillus Rhamnosus Gg) 1 Each Capsule 1 Each PO DAILY Carvedilol 3.125 Mg Tablet 3.125 Mg PO DAILY Ativan (Lorazepam) 0.5 Mg Tablet 0.5 Mg PO PRN Q4HRS PRN Ativan (Lorazepam) 0.5 Mg Tablet 0.5 Mg PO HS Aspirin 325 Mg Tablet 325 Mg PO DAILY Amiodarone Hcl 200 Mg Tablet 200 Mg PO DAILY Janiya Allergy (Fexofenadine Hcl) 180 Mg Tablet 180 Mg PO PRN DAILY PRN I have reviewed the current psychotropics carefully including drug interactions. Risk benefit ratio favors no change other than as noted in my dictated progress note. Diagnosis: Problems: (1) Anxiety disorder (2) Dementia in Alzheimer's disease with delusions (3) Dementia in Alzheimer's disease with depression (4) Dementia, vascular, with delusions (5) Dementia, vascular, with depression (6) Impulse control disorder SANDER RASMUSSEN MD Feb 06, 2018 22:32
[2018-02-07 01:05] LABS: BACTERIA,URINE MOD /HPF (0-FEW); BILIRUBIN,URINE NEG (NEG); CLARITY,URINE HAZY; COLOR,URINE YELLOW; GLUCOSE,URINE NEG (NEG); NITRITE,URINE NEG (NEG); RBC,URINE 0 /HPF (0-2); SQUAMOUS EPITHELIAL CELL,UR MOD /LPF; UROBILINOGEN,URINE 0.2 mg/dL (0.2 mg/dL)
[2018-02-07 06:38] VITALS: BP 152/82
[2018-02-07] MEDS: LEVOTHYROXINE 75 MCG TABLET PO SCH (06:45)
[2018-02-07] MEDS: AMIODARONE HCL 200 MG TABLET PO SCH (07:52)
[2018-02-07] MEDS: LACTOBACILLUS RHAMNOSUS GG 1 CAPSULE. PO SCH (07:52)
[2018-02-07] MEDS: OMEGA-3 FATTY ACIDS/FISH OIL 1,000 MG CAPSULE. PO SCH (07:52)
[2018-02-07] MEDS: POTASSIUM CHLORIDE 20 MEQ TABLET.ER. PO SCH (07:52)
[2018-02-07] MEDS: FUROSEMIDE 20 MG TABLET PO SCH (07:53)
[2018-02-07] MEDS: CARVEDILOL 3.125 MG TABLET PO SCH (07:53)
[2018-02-07] MEDS: QUEtiapine 50 MG TABLET. PO SCH ×3 (07:53→19:55)
[2018-02-07] MEDS: CYANOCOBALAMIN (VITAMIN B-12) 1,000 MCG TABLET. PO SCH (07:53)
[2018-02-07] MEDS: MAGNESIUM OXIDE 400 MG TABLET PO SCH (07:53)
[2018-02-07] MEDS: SERTRALINE 50 MG TABLET. PO SCH (07:53)
--- NOTE | 2018-02-07 08:10 | PN ---
DATE: 02/04/2018 This is a late entry for 02/04/2018 and covers elements not covered in my initial note. SUBJECTIVE: I met with the patient in the evening. The patient slept 2-3/4 hours. We will check a UA to clarify that this could be worsening her confusion. In the morning, she was yelling, extremely agitated, believed that staff were selling her belongings. She defecated in the hallway, fecal matter was found in the sink. She refused to let some of the other patients leave the dining room, paranoid, suspicious. REVIEW OF SYSTEMS: No CV, , pulmonary, eye, ENT system symptoms on review. Reliability poor. MENTAL STATUS EXAM: Oriented to herself. Insight, judgment, recent and remote memory, attention, concentration, fund of knowledge poor, consistent with her diagnosis as mentioned in my initial note. PLAN: Continue current psychotropics, check UA, make further adjustments in medication and may adjust the Seroquel in due course. SANDER RASMUSSEN MD DR: CONCETTA/hazel JOB#: [id number] / [id number]
--- NOTE | 2018-02-07 08:13 | PN ---
DATE: 02/05/2018 This is a late entry for 02/05/2018 covers the elements not covered in my initial note. SUBJECTIVE: I met with the patient's individually and staffed at a treatment team meeting with the entire team. The patient's daughter, Marietta attended the conference. UA was done. The day before was a difficult day per nursing report, she had to be secluded in the West hallway, had a loose stool. Sitting in her room with diaper, strung over her arms as I met with her. REVIEW OF SYSTEMS: No CV, , pulmonary, eye, ENT system symptoms on review. Reliability poor. MENTAL STATUS EXAM: Oriented to herself. Insight, judgment, recent and remote memory, attention, concentration, fund of knowledge poor, consistent with her diagnosis mentioned in my initial note. PLAN: The patient's daughter wondered whether there has been Ativan that could be causing paradoxical disinhibition. We had a lengthy discussion about all her psychotropics with the daughter. We will taper and stop the Ativan. Continue rest unchanged, may reduce Seroquel later. Consider Depakote as a mood stabilizer. MAN Bridget RASMUSSEN MD DR: CONCETTA/hazel JOB#: [id number] / [id number]
[2018-02-07 16:20] VITALS: BP 125/52
[2018-02-07] MEDS: traZODone 50 MG TABLET. PO SCH (19:55)
[2018-02-07] MEDS: MIRTAZAPINE 15 MG TABLET PO SCH (19:55)
[2018-02-07] MEDS: LORazepam 0.5 MG TABLET PO PRN (22:11)
[2018-02-07] MEDS: traZODone 50 MG TABLET. PO PRN (22:11)
--- NOTE | 2018-02-07 22:36 | PDOC ---
Exam Note: Aakash Note: Please also refer to the separate dictated note~for this date of service dictated separately.~Patient seen individually. Discussed the patient with Nursing staff reviewed the chart.~Reviewed interim history and current functioning. Reviewed vital signs,~Labs/ Radiology~and current medications noted below. Continue current treatment with the changes noted in the dictated addendum note Assessment: Vital Signs: Vital Signs Date Time Temp Pulse Resp B/P (MAP) Pulse Ox O2 Delivery O2 Flow Rate FiO2 02/07/18 16:20 98.1 58 20 125/52 (76) 98 Room Air I&O Intake and Output 02/07/18 07:01 Intake Total 720 ml Balance 720 ml Intake Oral 720 ml Labs: Laboratory Tests Test 02/07/18 00:40 Urine Collection Type Unknown Urine Color Yellow Urine Clarity Hazy Urine pH 5.0 Urine Specific [place] 1.020 Urine Protein Neg (NEG-TRACE) Urine Glucose (UA) Neg mg/dL (NEG) Urine Ketones (Stick) Neg mg/dL (NEG) Urine Blood Neg (NEG) Urine Nitrite Neg (NEG) Urine Bilirubin Neg (NEG) Urine Urobilinogen Dipstick 0.2 mg/dL (0.2 mg/dL) Urine Leukocyte Esterase Small (NEG) Urine RBC 0 /HPF (0-2) Urine WBC 1-4 /HPF (0-4) Urine Squamous Epithelial Cells Mod /LPF Urine Bacteria Mod /HPF (0-FEW) Current Medications: Meds: Current Medications Acetaminophen (Tylenol) 650 mg PRN Q6HRS PRN PO PAIN / TEMP; Start 01/22/18 at 21:30; Stop 01/22/18 at 22:23; Status DC Multi-Ingredient Ointment (Analgesic [place]) 1 morenita PRN QID PRN TP MUSCLE PAIN Last administered on 02/06/18at 00:30; Start 01/22/18 at 21:30 Al Hydroxide/Mg Hydroxide (Mylanta Plus Xs) 15 ml PRN AFTMEALHC PRN PO DYSPEPSIA; Start 01/22/18 at 21:30 Magnesium Hydroxide (Milk Of Magnesia) 2,400 mg PRN QHS PRN PO CONSTIPATION; Start 01/22/18 at 21:30 Lorazepam (Ativan) 0.5 mg QHS PO Last administered on 02/04/18at 19:47; Start at 22:30; Stop 02/05/18 at 10:55; Status DC Lorazepam (Ativan) 0.5 mg PRN Q4HRS PRN PO ANXIETY / AGITATION Last administered on 02/07/18at 22:11; Start 01/22/18 at 22:30 Quetiapine Fumarate (SEROquel) 50 mg TID PO Last administered on 02/07/18at 19: 55; Start 01/22/18 at 22:30 Acetaminophen (Tylenol) 650 mg PRN Q4HRS PRN PO PAIN; Start 01/22/18 at 22:15; Stop 01/22/18 at 22:24; Status DC Aspirin ([place] Aspirin) 325 mg DAILY PO Last administered on 02/05/18at 09:21; Start 01/23/18 at 09:00; Stop 02/05/18 at 18:03; Status DC Vitamin D (Vitamin D3) 1,000 unit QMWF PO Last administered on 01/26/18at 10:44; Start 01/23/18 at 16:00; Stop 01/27/18 at 13:40; Status DC Cyanocobalamin (Vitamin B-12) 1,000 mcg DAILY PO Last administered on at 07:53; Start 01/23/18 at 09:00 Diltiazem HCl (Cardizem 24hr Cd) 120 mg DAILY PO Last administered on 01/24/18at 07:57; Start 01/23/18 at 09:00; Stop 01/25/18 at 15:15; Status DC Furosemide (Lasix) 20 mg DAILY PO Last administered on 02/07/18at 07:53; Start 01/23/18 at 09:00 Ipratropium [place] (Atrovent) 0.2 mg PRN Q4HRS PRN IH SHORTNESS OF BREATH; Start 01/22/18 at 22:15 Albuterol/ Ipratropium (Duoneb) 3 ml PRN QID PRN NEB SHORTNESS OF BREATH; Start 01/22/18 at 22:15 Fish Oil (Fish Oil) 1,000 mg DAILY PO Last administered on 02/07/18at 07:52; Start 01/23/18 at 09:00 Potassium Chloride (Klor-Con) 20 meq DAILY PO Last administered on 02/07/18at 07 :52; Start 01/23/18 at 09:00 Amiodarone HCl (Cordarone) 200 mg DAILY PO Last administered on 02/07/18at 07:52 ; Start 01/23/18 at 09:00 Carvedilol (Coreg) 3.125 mg DAILY PO Last administered on 02/07/18at 07:53; Start 01/23/18 at 09:00 Cetirizine HCl (ZyrTEC) 10 mg PRN DAILY PRN PO ALLERGIES Last administered on at 08:45; Start 01/23/18 at 09:00 Non-Formulary Medication (Garlic ) 2,000 mg DAILY PO ; Start 01/23/18 at 09:00; Stop 01/23/18 at 09:00; Status DC Lactobacillus Rhamnosus (Culturelle) 1 cap DAILY PO Last administered on at 07:52; Start 01/23/18 at 09:00 Levothyroxine Sodium (Synthroid) 50 mcg DAILY07 PO Last administered on at 05:46; Start 01/23/18 at 07:00; Stop 01/23/18 at 14:03; Status DC Magnesium Oxide (Magnesium Oxide) 400 mg DAILY PO Last administered on at 07:53; Start 01/23/18 at 09:00 Naproxen (Naprosyn) 500 mg DAILY PO Last administered on 02/05/18at 09:21; Start 01/23/18 at 09:00; Stop 02/05/18 at 18:03; Status DC Polyethylene Glycol (miraLAX) 17 gm PRN DAILY PRN PO CONSTIPATION; Start at 09:00 Artificial Tears (Refresh Classic) 1 drop PRN DAILY PRN OU DRY EYE; Start 01/22 at 22:45 Acetaminophen (Tylenol) 650 mg PRN Q4HRS PRN PO PAIN / TEMP Last administered on 02/06/18at 00:30; Start 01/22/18 at 22:30 Levothyroxine Sodium (Synthroid) 50 mcg DAILY06 PO Last administered on at 06:04; Start 01/24/18 at 06:00; Stop 01/25/18 at 15:10; Status DC Sertraline HCl (Zoloft) 25 mg DAILY PO Last administered on 01/26/18 10:44; Start 01/24/18 at 09:00; Stop 01/27/18 at 08:59; Status DC Sertraline HCl (Zoloft) 50 mg DAILY PO Last administered on 02/07/18 07:53; Start 01/27/18 at 09:00 Olanzapine (ZyPREXA ZYDIS) 2.5 mg PRN Q2HR PRN PO PSYCHOSIS Last administered on 02/03/18 21:31; Start 01/24/18 at 22:00 Levothyroxine Sodium (Synthroid) 75 mcg DAILY06 PO Last administered on 06:45; Start 01/26/18 at 06:00 Fosfomycin Tromethamine (Monurol) 3 gm 1X ONCE PO Last administered on 18:03; Start 01/25/18 at 16:00; Stop 01/25/18 at 16:01; Status DC Mirtazapine (Remeron) 7.5 mg QHS PO Last administered on 01/26/18 20:06; Start 01/26/18 at 21:00; Stop 01/27/18 at 18:49; Status DC Naproxen (Naprosyn) 500 mg 1X ONCE PO Last administered on 01/27/18 08:10; Start 01/27/18 at 08:30; Stop 01/27/18 at 08:32; Status DC Vitamin D (Vitamin D3) 50,000 unit WEEKLY PO Last administered on 02/03/18 08: 30; Start 01/27/18 at 13:30 Mirtazapine (Remeron) 15 mg QHS PO Last administered on 02/07/18 19:55; Start 01/27/18 at 21:00 Trazodone HCl (Desyrel) 50 mg PRN QHS PRN PO INSOMNIA, MAY REPEAT X1 Last administered on 01/31/18 20:04; Start 01/28/18 at 18:30; Stop 02/01/18 at 20:18; Status DC Trazodone HCl (Desyrel) 50 mg HS PO Last administered on 02/07/18 19:55; Start 02/01/18 at 21:00 Trazodone HCl (Desyrel) 50 mg PRN QHS PRN PO INSOMNIA Last administered on 6/16 /18at 22:11; Start 02/01/18 at 20:30 Lorazepam (Ativan) 0.25 mg QHS PO Last administered on 02/06/18at 19:48; Start 02/05/18 at 21:00; Stop 02/06/18 at 21:02; Status DC Active Scripts Active Reported Vitamin D3 (Cholecalciferol (Vitamin D3)) 1,000 Unit Tablet 1,000 Unit PO EVERY FRI,FRI,FRI Vitamin B-12 (Cyanocobalamin (Vitamin B-12)) 1,000 Mcg Tablet 1,000 Mcg PO DAILY Tylenol (Acetaminophen) 325 Mg Tablet 650 Mg PO PRN Q4HRS PRN Systane 0.3-0.4% Eye Drops (Propylene Glycol/Peg 400) 15 Ml Drops 1 Drop OU PRN PRN Synthroid (Levothyroxine Sodium) 50 Mcg Tablet 50 Mcg PO DAILYAC Seroquel (Quetiapine Fumarate) 50 Mg Tablet 50 Mg PO TID Klor-Con M20 (Potassium Chloride) 20 Meq Tab.er.prt 20 Meq PO DAILY Naprosyn (Naproxen) 500 Mg Tablet 500 Mg PO DAILY Miralax (Polyethylene Glycol 3350) 17 Gm Powd.pack 17 Gm PO PRN Q24HRS PRN Magnesium Oxide 400 Mg Tablet 400 Mg PO DAILY Lasix (Furosemide) 20 Mg Tablet 20 Mg PO DAILY Ipratropium [place] 0.2 Mg/1 Ml Solution 0.2 Mg IH PRN Q4HRS PRN Garlic 1,000 Mg Capsule 2,000 Mg PO DAILY Fish Oil 1,000 Mg Capsule ([place]-3 Fatty Acids/Fish Oil) 1 Each Capsule 1 Each PO DAILY Duoneb 0.5-3(2.5) Mg/3 Ml (Albuterol/Ipratropium) 3 Ml Ampul.neb 3 Ml NEB PRN QID PRN Diltiazem 24HR Cd (Diltiazem Hcl) 120 Mg Cap.er.24h 120 Mg PO DAILY Culturelle (Lactobacillus Rhamnosus Gg) 1 Each Capsule 1 Each PO DAILY Carvedilol 3.125 Mg Tablet 3.125 Mg PO DAILY Ativan (Lorazepam) 0.5 Mg Tablet 0.5 Mg PO PRN Q4HRS PRN Ativan (Lorazepam) 0.5 Mg Tablet 0.5 Mg PO HS Aspirin 325 Mg Tablet 325 Mg PO DAILY Amiodarone Hcl 200 Mg Tablet 200 Mg PO DAILY Janiya Allergy (Fexofenadine Hcl) 180 Mg Tablet 180 Mg PO PRN DAILY PRN I have reviewed the current psychotropics carefully including drug interactions. Risk benefit ratio favors no change other than as noted in my dictated progress note. Diagnosis: Problems: (1) Anxiety disorder (2) Dementia in Alzheimer's disease with delusions (3) Dementia in Alzheimer's disease with depression (4) Dementia, vascular, with delusions (5) Dementia, vascular, with depression (6) Impulse control disorder SANDER RASMUSSEN MD Feb 07, 2018 22:36
[2018-02-08 06:25] VITALS: BP 168/77
[2018-02-08] MEDS: LEVOTHYROXINE 75 MCG TABLET PO SCH (06:30)
[2018-02-08] MEDS: SERTRALINE 50 MG TABLET. PO SCH (07:48)
[2018-02-08] MEDS: OMEGA-3 FATTY ACIDS/FISH OIL 1,000 MG CAPSULE. PO SCH (07:48)
[2018-02-08] MEDS: AMIODARONE HCL 200 MG TABLET PO SCH (07:48)
[2018-02-08] MEDS: LACTOBACILLUS RHAMNOSUS GG 1 CAPSULE. PO SCH (07:49)
[2018-02-08] MEDS: QUEtiapine 50 MG TABLET. PO SCH ×3 (07:49→20:13)
[2018-02-08] MEDS: POTASSIUM CHLORIDE 20 MEQ TABLET.ER. PO SCH (07:50)
[2018-02-08] MEDS: CYANOCOBALAMIN (VITAMIN B-12) 1,000 MCG TABLET. PO SCH (07:50)
[2018-02-08] MEDS: MAGNESIUM OXIDE 400 MG TABLET PO SCH (07:50)
[2018-02-08] MEDS: FUROSEMIDE 20 MG TABLET PO SCH (07:50)
[2018-02-08] MEDS: CARVEDILOL 3.125 MG TABLET PO SCH (07:51)
[2018-02-08 15:56] VITALS: BP 150/67
[2018-02-08] MEDS: traZODone 50 MG TABLET. PO SCH (20:13)
[2018-02-08] MEDS: MIRTAZAPINE 15 MG TABLET PO SCH (20:13)
--- NOTE | 2018-02-08 21:06 | PDOC ---
Exam Note: Aakash Note: Please also refer to the separate dictated note~for this date of service dictated separately.~Patient seen individually. Discussed the patient with Nursing staff reviewed the chart.~Reviewed interim history and current functioning. Reviewed vital signs,~Labs/ Radiology~and current medications noted below. Continue current treatment with the changes noted in the dictated addendum note Assessment: Vital Signs: Vital Signs Date Time Temp Pulse Resp B/P (MAP) Pulse Ox O2 Delivery O2 Flow Rate FiO2 02/08/18 15:56 98.2 60 18 150/67 (94) 97 02/07/18 16:20 Room Air I&O Intake and Output 02/08/18 07:01 Intake Total 845 ml Balance 845 ml Intake Oral 845 ml # Bowel Movements 1 Current Medications: Meds: Current Medications Acetaminophen (Tylenol) 650 mg PRN Q6HRS PRN PO PAIN / TEMP; Start 01/22/18 at 21:30; Stop 01/22/18 at 22:23; Status DC Multi-Ingredient Ointment (Analgesic [place]) 1 morenita PRN QID PRN TP MUSCLE PAIN Last administered on 02/06/18at 00:30; Start 01/22/18 at 21:30 Al Hydroxide/Mg Hydroxide (Mylanta Plus Xs) 15 ml PRN AFTMEALHC PRN PO DYSPEPSIA; Start 01/22/18 at 21:30 Magnesium Hydroxide (Milk Of Magnesia) 2,400 mg PRN QHS PRN PO CONSTIPATION; Start 01/22/18 at 21:30 Lorazepam (Ativan) 0.5 mg QHS PO Last administered on 02/04/18at 19:47; Start at 22:30; Stop 02/05/18 at 10:55; Status DC Lorazepam (Ativan) 0.5 mg PRN Q4HRS PRN PO ANXIETY / AGITATION Last administered on 02/07/18at 22:11; Start 01/22/18 at 22:30 Quetiapine Fumarate (SEROquel) 50 mg TID PO Last administered on 02/08/18at 20: 13; Start 01/22/18 at 22:30 Acetaminophen (Tylenol) 650 mg PRN Q4HRS PRN PO PAIN; Start 01/22/18 at 22:15; Stop 01/22/18 at 22:24; Status DC Aspirin ([place] Aspirin) 325 mg DAILY PO Last administered on 02/05/18 09:21; Start 01/23/18 at 09:00; Stop 02/05/18 at 18:03; Status DC Vitamin D (Vitamin D3) 1,000 unit QMWF PO Last administered on 01/26/18at 10:44; Start 01/23/18 at 16:00; Stop 01/27/18 at 13:40; Status DC Cyanocobalamin (Vitamin B-12) 1,000 mcg DAILY PO Last administered on at 07:50; Start 01/23/18 at 09:00 Diltiazem HCl (Cardizem 24hr Cd) 120 mg DAILY PO Last administered on 01/24/18 07:57; Start 01/23/18 at 09:00; Stop 01/25/18 at 15:15; Status DC Furosemide (Lasix) 20 mg DAILY PO Last administered on 02/08/18at 07:50; Start 01/23/18 at 09:00 Ipratropium [place] (Atrovent) 0.2 mg PRN Q4HRS PRN IH SHORTNESS OF BREATH; Start 01/22/18 at 22:15 Albuterol/ Ipratropium (Duoneb) 3 ml PRN QID PRN NEB SHORTNESS OF BREATH; Start 01/22/18 at 22:15 Fish Oil (Fish Oil) 1,000 mg DAILY PO Last administered on 02/08/18at 07:48; Start 01/23/18 at 09:00 Potassium Chloride (Klor-Con) 20 meq DAILY PO Last administered on 02/08/18at 07 :50; Start 01/23/18 at 09:00 Amiodarone HCl (Cordarone) 200 mg DAILY PO Last administered on 02/08/18at 07:48 ; Start 01/23/18 at 09:00 Carvedilol (Coreg) 3.125 mg DAILY PO Last administered on 02/08/18at 07:51; Start 01/23/18 at 09:00 Cetirizine HCl (ZyrTEC) 10 mg PRN DAILY PRN PO ALLERGIES Last administered on at 08:45; Start 01/23/18 at 09:00 Non-Formulary Medication (Garlic ) 2,000 mg DAILY PO ; Start 01/23/18 at 09:00; Stop 01/23/18 at 09:00; Status DC Lactobacillus Rhamnosus (Culturelle) 1 cap DAILY PO Last administered on at 07:49; Start 01/23/18 at 09:00 Levothyroxine Sodium (Synthroid) 50 mcg DAILY07 PO Last administered on at 05:46; Start 01/23/18 at 07:00; Stop 01/23/18 at 14:03; Status DC Magnesium Oxide (Magnesium Oxide) 400 mg DAILY PO Last administered on at 07:50; Start 01/23/18 at 09:00 Naproxen (Naprosyn) 500 mg DAILY PO Last administered on 02/05/18at 09:21; Start 01/23/18 at 09:00; Stop 02/05/18 at 18:03; Status DC Polyethylene Glycol (miraLAX) 17 gm PRN DAILY PRN PO CONSTIPATION; Start at 09:00 Artificial Tears (Refresh Classic) 1 drop PRN DAILY PRN OU DRY EYE; Start 01/22 at 22:45 Acetaminophen (Tylenol) 650 mg PRN Q4HRS PRN PO PAIN / TEMP Last administered on 02/06/18at 00:30; Start 01/22/18 at 22:30 Levothyroxine Sodium (Synthroid) 50 mcg DAILY06 PO Last administered on at 06:04; Start 01/24/18 at 06:00; Stop 01/25/18 at 15:10; Status DC Sertraline HCl (Zoloft) 25 mg DAILY PO Last administered on 01/26/18at 10:44; Start 01/24/18 at 09:00; Stop 01/27/18 at 08:59; Status DC Sertraline HCl (Zoloft) 50 mg DAILY PO Last administered on 02/08/18at 07:48; Start 01/27/18 at 09:00 Olanzapine (ZyPREXA ZYDIS) 2.5 mg PRN Q2HR PRN PO PSYCHOSIS Last administered on 02/03/18at 21:31; Start 01/24/18 at 22:00 Levothyroxine Sodium (Synthroid) 75 mcg DAILY06 PO Last administered on at 06:30; Start 01/26/18 at 06:00 Fosfomycin Tromethamine (Monurol) 3 gm 1X ONCE PO Last administered on at 18:03; Start 01/25/18 at 16:00; Stop 01/25/18 at 16:01; Status DC Mirtazapine (Remeron) 7.5 mg QHS PO Last administered on 01/26/18at 20:06; Start 01/26/18 at 21:00; Stop 01/27/18 at 18:49; Status DC Naproxen (Naprosyn) 500 mg 1X ONCE PO Last administered on 01/27/18at 08:10; Start 01/27/18 at 08:30; Stop 01/27/18 at 08:32; Status DC Vitamin D (Vitamin D3) 50,000 unit WEEKLY PO Last administered on 02/03/18at 08: 30; Start 01/27/18 at 13:30 Mirtazapine (Remeron) 15 mg QHS PO Last administered on 02/08/18at 20:13; Start 01/27/18 at 21:00 Trazodone HCl (Desyrel) 50 mg PRN QHS PRN PO INSOMNIA, MAY REPEAT X1 Last administered on 01/31/18at 20:04; Start 01/28/18 at 18:30; Stop 02/01/18 at 20:18; Status DC Trazodone HCl (Desyrel) 50 mg HS PO Last administered on 02/08/18at 20:13; Start 02/01/18 at 21:00 Trazodone HCl (Desyrel) 50 mg PRN QHS PRN PO INSOMNIA Last administered on 02/07at 22:11; Start 02/01/18 at 20:30 Lorazepam (Ativan) 0.25 mg QHS PO Last administered on 02/06/18at 19:48; Start 02/05/18 at 21:00; Stop 02/06/18 at 21:02; Status DC Active Scripts Active Reported Vitamin D3 (Cholecalciferol (Vitamin D3)) 1,000 Unit Tablet 1,000 Unit PO EVERY SUN,WED,FRI Vitamin B-12 (Cyanocobalamin (Vitamin B-12)) 1,000 Mcg Tablet 1,000 Mcg PO DAILY Tylenol (Acetaminophen) 325 Mg Tablet 650 Mg PO PRN Q4HRS PRN Systane 0.3-0.4% Eye Drops (Propylene Glycol/Peg 400) 15 Ml Drops 1 Drop OU PRN PRN Synthroid (Levothyroxine Sodium) 50 Mcg Tablet 50 Mcg PO DAILYAC Seroquel (Quetiapine Fumarate) 50 Mg Tablet 50 Mg PO TID Klor-Con M20 (Potassium Chloride) 20 Meq Tab.er.prt 20 Meq PO DAILY Naprosyn (Naproxen) 500 Mg Tablet 500 Mg PO DAILY Miralax (Polyethylene Glycol 3350) 17 Gm Powd.pack 17 Gm PO PRN Q24HRS PRN Magnesium Oxide 400 Mg Tablet 400 Mg PO DAILY Lasix (Furosemide) 20 Mg Tablet 20 Mg PO DAILY Ipratropium [place] 0.2 Mg/1 Ml Solution 0.2 Mg IH PRN Q4HRS PRN Garlic 1,000 Mg Capsule 2,000 Mg PO DAILY Fish Oil 1,000 Mg Capsule ([place]-3 Fatty Acids/Fish Oil) 1 Each Capsule 1 Each PO DAILY Duoneb 0.5-3(2.5) Mg/3 Ml (Albuterol/Ipratropium) 3 Ml Ampul.neb 3 Ml NEB PRN QID PRN Diltiazem 24HR Cd (Diltiazem Hcl) 120 Mg Cap.er.24h 120 Mg PO DAILY Culturelle (Lactobacillus Rhamnosus Gg) 1 Each Capsule 1 Each PO DAILY Carvedilol 3.125 Mg Tablet 3.125 Mg PO DAILY Ativan (Lorazepam) 0.5 Mg Tablet 0.5 Mg PO PRN Q4HRS PRN Ativan (Lorazepam) 0.5 Mg Tablet 0.5 Mg PO HS Aspirin 325 Mg Tablet 325 Mg PO DAILY Amiodarone Hcl 200 Mg Tablet 200 Mg PO DAILY Janiya Allergy (Fexofenadine Hcl) 180 Mg Tablet 180 Mg PO PRN DAILY PRN I have reviewed the current psychotropics carefully including drug interactions. Risk benefit ratio favors no change other than as noted in my dictated progress note. Diagnosis: Problems: (1) Anxiety disorder (2) Dementia in Alzheimer's disease with delusions (3) Dementia in Alzheimer's disease with depression (4) Dementia, vascular, with delusions (5) Dementia, vascular, with depression (6) Impulse control disorder SANDER RASMUSSEN MD Feb 08, 2018 21:06
--- NOTE | 2018-02-09 02:43 | PN ---
DATE: 02/06/2018 This is a late entry for 02/06/2018 covers elements not covered in my initial note. SUBJECTIVE: I met with the patient in the evening. The patient remains confused, paranoid. We will check a UA and rule out urinary tract infection. REVIEW OF SYSTEMS: No CV, , pulmonary, eye, ENT system symptoms on review. Reliability poor. MENTAL STATUS EXAM: Oriented to herself. Insight, judgment, recent and remote memory, attention, concentration, fund of knowledge poor, consistent with her diagnosis mentioned in my initial note. PLAN: Continue current psychotropics, check UA, adjust further as clinically indicated. MAN Bridget RASMUSSEN MD DR: CONCETTA/hazel JOB#: [id number] / [id number]
[2018-02-09] MEDS: LEVOTHYROXINE 75 MCG TABLET PO SCH (06:19)
[2018-02-09 06:28] VITALS: BP 180/72
[2018-02-09] MEDS: FUROSEMIDE 20 MG TABLET PO SCH (07:42)
[2018-02-09] MEDS: AMIODARONE HCL 200 MG TABLET PO SCH (07:42)
[2018-02-09] MEDS: QUEtiapine 50 MG TABLET. PO SCH ×3 (07:42→20:29)
[2018-02-09] MEDS: OMEGA-3 FATTY ACIDS/FISH OIL 1,000 MG CAPSULE. PO SCH (07:42)
[2018-02-09] MEDS: CYANOCOBALAMIN (VITAMIN B-12) 1,000 MCG TABLET. PO SCH (07:42)
[2018-02-09] MEDS: CARVEDILOL 3.125 MG TABLET PO SCH (07:42)
[2018-02-09] MEDS: SERTRALINE 50 MG TABLET. PO SCH (07:42)
[2018-02-09] MEDS: MAGNESIUM OXIDE 400 MG TABLET PO SCH (07:42)
[2018-02-09] MEDS: LACTOBACILLUS RHAMNOSUS GG 1 CAPSULE. PO SCH (07:42)
[2018-02-09] MEDS: POTASSIUM CHLORIDE 20 MEQ TABLET.ER. PO SCH (07:43)
[2018-02-09 16:26] VITALS: BP 125/80
--- NOTE | 2018-02-09 19:25 | PN ---
DATE: 02/07/2018 PSYCHIATRIC PROGRESS NOTE This late entry 02/07/2018 covers elements not covered in my initial note of 02/07/2018. SUBJECTIVE: Met with the patient in the evening. The patient remains confused, somewhat anxious, restless at times with disorganized, delusional, but redirectable. REVIEW OF SYSTEMS: No CV, , pulmonary, eye, ENT system symptoms on review. Reliability is poor. MENTAL STATUS EXAM: Oriented to herself. Insight, judgment, recent, remote memory, attention, concentration, fund of knowledge is poor, consistent with her diagnoses mentioned in my initial note. IMPRESSION: Major neurocognitive disorder, Alzheimer, vascular with delusion, depression, behavioral disturbance. PLAN: Check a UA to make sure UTI is not worsening her agitation. Continue rest unchanged from initial note. MAN Bridget RASMUSSEN MD DR: CONCETTA/hazel JOB#: [id number] / [id number]
[2018-02-09] MEDS: MIRTAZAPINE 15 MG TABLET PO SCH (20:29)
[2018-02-09] MEDS: traZODone 50 MG TABLET. PO SCH (20:29)
--- NOTE | 2018-02-09 21:10 | PDOC ---
Exam Note: Aakash Note: Please also refer to the separate dictated note~for this date of service dictated separately.~Patient seen individually. Discussed the patient with Nursing staff reviewed the chart.~Reviewed interim history and current functioning. Reviewed vital signs,~Labs/ Radiology~and current medications noted below. Continue current treatment with the changes noted in the dictated addendum note Assessment: Vital Signs: Vital Signs Date Time Temp Pulse Resp B/P (MAP) Pulse Ox O2 Delivery O2 Flow Rate FiO2 02/09/18 16:26 97.7 52 20 125/80 (95) 96 Room Air I&O Intake and Output 02/09/18 07:01 Intake Total 845 ml Balance 845 ml Intake Oral 845 ml # Bowel Movements 2 Current Medications: Meds: Current Medications Acetaminophen (Tylenol) 650 mg PRN Q6HRS PRN PO PAIN / TEMP; Start 01/22/18 at 21:30; Stop 01/22/18 at 22:23; Status DC Multi-Ingredient Ointment (Analgesic [place]) 1 morenita PRN QID PRN TP MUSCLE PAIN Last administered on 02/06/18at 00:30; Start 01/22/18 at 21:30 Al Hydroxide/Mg Hydroxide (Mylanta Plus Xs) 15 ml PRN AFTMEALHC PRN PO DYSPEPSIA; Start 01/22/18 at 21:30 Magnesium Hydroxide (Milk Of Magnesia) 2,400 mg PRN QHS PRN PO CONSTIPATION; Start 01/22/18 at 21:30 Lorazepam (Ativan) 0.5 mg QHS PO Last administered on 02/04/18at 19:47; Start at 22:30; Stop 02/05/18 at 10:55; Status DC Lorazepam (Ativan) 0.5 mg PRN Q4HRS PRN PO ANXIETY / AGITATION Last administered on 02/07/18at 22:11; Start 01/22/18 at 22:30 Quetiapine Fumarate (SEROquel) 50 mg TID PO Last administered on 02/09/18at 20: 29; Start 01/22/18 at 22:30 Acetaminophen (Tylenol) 650 mg PRN Q4HRS PRN PO PAIN; Start 01/22/18 at 22:15; Stop 01/22/18 at 22:24; Status DC Aspirin ([place] Aspirin) 325 mg DAILY PO Last administered on 02/05/18 09:21; Start 01/23/18 at 09:00; Stop 02/05/18 at 18:03; Status DC Vitamin D (Vitamin D3) 1,000 unit QMWF PO Last administered on 01/26/18 10:44; Start 01/23/18 at 16:00; Stop 01/27/18 at 13:40; Status DC Cyanocobalamin (Vitamin B-12) 1,000 mcg DAILY PO Last administered on 07:42; Start 01/23/18 at 09:00 Diltiazem HCl (Cardizem 24hr Cd) 120 mg DAILY PO Last administered on 01/24/18 07:57; Start 01/23/18 at 09:00; Stop 01/25/18 at 15:15; Status DC Furosemide (Lasix) 20 mg DAILY PO Last administered on 02/09/18 07:42; Start 01/23/18 at 09:00 Ipratropium [place] (Atrovent) 0.2 mg PRN Q4HRS PRN IH SHORTNESS OF BREATH; Start 01/22/18 at 22:15 Albuterol/ Ipratropium (Duoneb) 3 ml PRN QID PRN NEB SHORTNESS OF BREATH; Start 01/22/18 at 22:15 Fish Oil (Fish Oil) 1,000 mg DAILY PO Last administered on 02/09/18at 07:42; Start 01/23/18 at 09:00 Potassium Chloride (Klor-Con) 20 meq DAILY PO Last administered on 02/09/18 07 :43; Start 01/23/18 at 09:00 Amiodarone HCl (Cordarone) 200 mg DAILY PO Last administered on 02/09/18 07:42 ; Start 01/23/18 at 09:00 Carvedilol (Coreg) 3.125 mg DAILY PO Last administered on 02/09/18 07:42; Start 01/23/18 at 09:00 Cetirizine HCl (ZyrTEC) 10 mg PRN DAILY PRN PO ALLERGIES Last administered on at 08:45; Start 01/23/18 at 09:00 Non-Formulary Medication (Garlic ) 2,000 mg DAILY PO ; Start 01/23/18 at 09:00; Stop 01/23/18 at 09:00; Status DC Lactobacillus Rhamnosus (Culturelle) 1 cap DAILY PO Last administered on at 07:42; Start 01/23/18 at 09:00 Levothyroxine Sodium (Synthroid) 50 mcg DAILY07 PO Last administered on at 05:46; Start 01/23/18 at 07:00; Stop 01/23/18 at 14:03; Status DC Magnesium Oxide (Magnesium Oxide) 400 mg DAILY PO Last administered on at 07:42; Start 01/23/18 at 09:00 Naproxen (Naprosyn) 500 mg DAILY PO Last administered on 02/05/18at 09:21; Start 01/23/18 at 09:00; Stop 02/05/18 at 18:03; Status DC Polyethylene Glycol (miraLAX) 17 gm PRN DAILY PRN PO CONSTIPATION; Start at 09:00 Artificial Tears (Refresh Classic) 1 drop PRN DAILY PRN OU DRY EYE; Start 01/22 at 22:45 Acetaminophen (Tylenol) 650 mg PRN Q4HRS PRN PO PAIN / TEMP Last administered on 02/06/18at 00:30; Start 01/22/18 at 22:30 Levothyroxine Sodium (Synthroid) 50 mcg DAILY06 PO Last administered on at 06:04; Start 01/24/18 at 06:00; Stop 01/25/18 at 15:10; Status DC Sertraline HCl (Zoloft) 25 mg DAILY PO Last administered on 01/26/18at 10:44; Start 01/24/18 at 09:00; Stop 01/27/18 at 08:59; Status DC Sertraline HCl (Zoloft) 50 mg DAILY PO Last administered on 02/09/18at 07:42; Start 01/27/18 at 09:00; Stop 02/09/18 at 18:40; Status DC Olanzapine (ZyPREXA ZYDIS) 2.5 mg PRN Q2HR PRN PO PSYCHOSIS Last administered on 02/03/18at 21:31; Start 01/24/18 at 22:00 Levothyroxine Sodium (Synthroid) 75 mcg DAILY06 PO Last administered on at 06:19; Start 01/26/18 at 06:00 Fosfomycin Tromethamine (Monurol) 3 gm 1X ONCE PO Last administered on at 18:03; Start 01/25/18 at 16:00; Stop 01/25/18 at 16:01; Status DC Mirtazapine (Remeron) 7.5 mg QHS PO Last administered on 01/26/18at 20:06; Start 01/26/18 at 21:00; Stop 01/27/18 at 18:49; Status DC Naproxen (Naprosyn) 500 mg 1X ONCE PO Last administered on 01/27/18at 08:10; Start 01/27/18 at 08:30; Stop 01/27/18 at 08:32; Status DC Vitamin D (Vitamin D3) 50,000 unit WEEKLY PO Last administered on 02/03/18at 08: 30; Start 01/27/18 at 13:30 Mirtazapine (Remeron) 15 mg QHS PO Last administered on 02/09/18at 20:29; Start 01/27/18 at 21:00 Trazodone HCl (Desyrel) 50 mg PRN QHS PRN PO INSOMNIA, MAY REPEAT X1 Last administered on 01/31/18at 20:04; Start 01/28/18 at 18:30; Stop 02/01/18 at 20:18; Status DC Trazodone HCl (Desyrel) 50 mg HS PO Last administered on 02/09/18at 20:29; Start 02/01/18 at 21:00 Trazodone HCl (Desyrel) 50 mg PRN QHS PRN PO INSOMNIA Last administered on 02/07at 22:11; Start 02/01/18 at 20:30 Lorazepam (Ativan) 0.25 mg QHS PO Last administered on 02/06/18at 19:48; Start 02/05/18 at 21:00; Stop 02/06/18 at 21:02; Status DC Sertraline HCl (Zoloft) 75 mg DAILY PO ; Start 02/10/18 at 09:00 Active Scripts Active Reported Vitamin D3 (Cholecalciferol (Vitamin D3)) 1,000 Unit Tablet 1,000 Unit PO EVERY FRI,FRI,FRI Vitamin B-12 (Cyanocobalamin (Vitamin B-12)) 1,000 Mcg Tablet 1,000 Mcg PO DAILY Tylenol (Acetaminophen) 325 Mg Tablet 650 Mg PO PRN Q4HRS PRN Systane 0.3-0.4% Eye Drops (Propylene Glycol/Peg 400) 15 Ml Drops 1 Drop OU PRN PRN Synthroid (Levothyroxine Sodium) 50 Mcg Tablet 50 Mcg PO DAILYAC Seroquel (Quetiapine Fumarate) 50 Mg Tablet 50 Mg PO TID Klor-Con M20 (Potassium Chloride) 20 Meq Tab.er.prt 20 Meq PO DAILY Naprosyn (Naproxen) 500 Mg Tablet 500 Mg PO DAILY Miralax (Polyethylene Glycol 3350) 17 Gm Powd.pack 17 Gm PO PRN Q24HRS PRN Magnesium Oxide 400 Mg Tablet 400 Mg PO DAILY Lasix (Furosemide) 20 Mg Tablet 20 Mg PO DAILY Ipratropium [place] 0.2 Mg/1 Ml Solution 0.2 Mg IH PRN Q4HRS PRN Garlic 1,000 Mg Capsule 2,000 Mg PO DAILY Fish Oil 1,000 Mg Capsule ([place]-3 Fatty Acids/Fish Oil) 1 Each Capsule 1 Each PO DAILY Duoneb 0.5-3(2.5) Mg/3 Ml (Albuterol/Ipratropium) 3 Ml Ampul.neb 3 Ml NEB PRN QID PRN Diltiazem 24HR Cd (Diltiazem Hcl) 120 Mg Cap.er.24h 120 Mg PO DAILY Culturelle (Lactobacillus Rhamnosus Gg) 1 Each Capsule 1 Each PO DAILY Carvedilol 3.125 Mg Tablet 3.125 Mg PO DAILY Ativan (Lorazepam) 0.5 Mg Tablet 0.5 Mg PO PRN Q4HRS PRN Ativan (Lorazepam) 0.5 Mg Tablet 0.5 Mg PO HS Aspirin 325 Mg Tablet 325 Mg PO DAILY Amiodarone Hcl 200 Mg Tablet 200 Mg PO DAILY Janiya Allergy (Fexofenadine Hcl) 180 Mg Tablet 180 Mg PO PRN DAILY PRN I have reviewed the current psychotropics carefully including drug interactions. Risk benefit ratio favors no change other than as noted in my dictated progress note. Diagnosis: Problems: (1) Anxiety disorder (2) Dementia in Alzheimer's disease with delusions (3) Dementia in Alzheimer's disease with depression (4) Dementia, vascular, with delusions (5) Dementia, vascular, with depression (6) Impulse control disorder SANDER RASMUSSEN MD Feb 09, 2018 21:10
--- NOTE | 2018-02-10 05:44 | PN ---
DATE: 02/08/2018 PSYCHIATRIC PROGRESS NOTE This is a late entry for 02/08/2018, covers elements not covered in my initial note of 02/08/2018. SUBJECTIVE: I met with the patient in the evening. The patient is compliant with her medications, somewhat delusional, believes Desiree, another patient is out to get her. UA showed mixed ml so no UTI to explain her ongoing mood lability. REVIEW OF SYSTEMS: No CV, , pulmonary, eye, ENT system symptoms on review. Reliability poor, pleasant, verbal, smiling as I met with her, but anxious. MENTAL STATUS EXAM: Oriented to herself. Insight, judgment, recent and remote memory, attention, concentration, fund of knowledge poor, consistent with her diagnosis mentioned in my initial note. IMPRESSION: Major neurocognitive disorder, Alzheimer, vascular with delusion, depression, behavioral disturbance. Rest unchanged. PLAN: Continue psychotropics from initial note, Zoloft, Seroquel along with Ativan p.r.n., Zyprexa p.r.n., Remeron along with trazadone. SANDER RASMUSSEN MD DR: CONCETTA/hazel JOB#: [id number] / [id number]
[2018-02-10 06:13] VITALS: BP 131/80
[2018-02-10] MEDS: LEVOTHYROXINE 75 MCG TABLET PO SCH (06:39)
[2018-02-10] MEDS: AMIODARONE HCL 200 MG TABLET PO SCH (08:03)
[2018-02-10] MEDS: CARVEDILOL 3.125 MG TABLET PO SCH (08:04)
[2018-02-10] MEDS: LACTOBACILLUS RHAMNOSUS GG 1 CAPSULE. PO SCH (08:04)
[2018-02-10] MEDS: OMEGA-3 FATTY ACIDS/FISH OIL 1,000 MG CAPSULE. PO SCH (08:05)
[2018-02-10] MEDS: CYANOCOBALAMIN (VITAMIN B-12) 1,000 MCG TABLET. PO SCH (08:05)
[2018-02-10] MEDS: QUEtiapine 50 MG TABLET. PO SCH ×3 (08:05→20:23)
[2018-02-10] MEDS: FUROSEMIDE 20 MG TABLET PO SCH (08:05)
[2018-02-10] MEDS: CHOLECALCIFEROL (VITAMIN D3) 50,000 UNIT CAPSULE PO SCH (08:05)
[2018-02-10] MEDS: POTASSIUM CHLORIDE 20 MEQ TABLET.ER. PO SCH (08:05)
[2018-02-10] MEDS: MAGNESIUM OXIDE 400 MG TABLET PO SCH (08:05)
[2018-02-10] MEDS: SERTRALINE 25 MG TABLET. PO SCH (08:06)
[2018-02-10 15:57] VITALS: BP 119/63
[2018-02-10] MEDS: MIRTAZAPINE 15 MG TABLET PO SCH (20:22)
[2018-02-10] MEDS: traZODone 50 MG TABLET. PO SCH (20:22)
--- NOTE | 2018-02-10 21:07 | PDOC ---
Exam Note: Aakash Note: Please also refer to the separate dictated note~for this date of service dictated separately.~Patient seen individually. Discussed the patient with Nursing staff reviewed the chart.~Reviewed interim history and current functioning. Reviewed vital signs,~Labs/ Radiology~and current medications noted below. Continue current treatment with the changes noted in the dictated addendum note Assessment: Vital Signs: Vital Signs Date Time Temp Pulse Resp B/P (MAP) Pulse Ox O2 Delivery O2 Flow Rate FiO2 02/10/18 15:57 97.8 52 18 119/63 (81) 91 02/09/18 16:26 Room Air I&O Intake and Output 02/10/18 07:00 Intake Total 1080 ml Balance 1080 ml Intake Oral 1080 ml Current Medications: Meds: Current Medications Acetaminophen (Tylenol) 650 mg PRN Q6HRS PRN PO PAIN / TEMP; Start 01/22/18 at 21:30; Stop 01/22/18 at 22:23; Status DC Multi-Ingredient Ointment (Analgesic [place]) 1 morenita PRN QID PRN TP MUSCLE PAIN Last administered on 02/06/18at 00:30; Start 01/22/18 at 21:30 Al Hydroxide/Mg Hydroxide (Mylanta Plus Xs) 15 ml PRN AFTMEALHC PRN PO DYSPEPSIA; Start 01/22/18 at 21:30 Magnesium Hydroxide (Milk Of Magnesia) 2,400 mg PRN QHS PRN PO CONSTIPATION; Start 01/22/18 at 21:30 Lorazepam (Ativan) 0.5 mg QHS PO Last administered on 02/04/18at 19:47; Start at 22:30; Stop 02/05/18 at 10:55; Status DC Lorazepam (Ativan) 0.5 mg PRN Q4HRS PRN PO ANXIETY / AGITATION Last administered on 02/07/18at 22:11; Start 01/22/18 at 22:30 Quetiapine Fumarate (SEROquel) 50 mg TID PO Last administered on 02/10/18at 20: 23; Start 01/22/18 at 22:30 Acetaminophen (Tylenol) 650 mg PRN Q4HRS PRN PO PAIN; Start 01/22/18 at 22:15; Stop 01/22/18 at 22:24; Status DC Aspirin ([place] Aspirin) 325 mg DAILY PO Last administered on 02/05/18 09:21; Start 01/23/18 at 09:00; Stop 02/05/18 at 18:03; Status DC Vitamin D (Vitamin D3) 1,000 unit QMWF PO Last administered on 01/26/18at 10:44; Start 01/23/18 at 16:00; Stop 01/27/18 at 13:40; Status DC Cyanocobalamin (Vitamin B-12) 1,000 mcg DAILY PO Last administered on at 08:05; Start 01/23/18 at 09:00 Diltiazem HCl (Cardizem 24hr Cd) 120 mg DAILY PO Last administered on 01/24/18 07:57; Start 01/23/18 at 09:00; Stop 01/25/18 at 15:15; Status DC Furosemide (Lasix) 20 mg DAILY PO Last administered on 02/10/18at 08:05; Start 01/23/18 at 09:00 Ipratropium [place] (Atrovent) 0.2 mg PRN Q4HRS PRN IH SHORTNESS OF BREATH; Start 01/22/18 at 22:15 Albuterol/ Ipratropium (Duoneb) 3 ml PRN QID PRN NEB SHORTNESS OF BREATH; Start 01/22/18 at 22:15 Fish Oil (Fish Oil) 1,000 mg DAILY PO Last administered on 02/10/18at 08:05; Start 01/23/18 at 09:00 Potassium Chloride (Klor-Con) 20 meq DAILY PO Last administered on 02/10/18at 08 :05; Start 01/23/18 at 09:00 Amiodarone HCl (Cordarone) 200 mg DAILY PO Last administered on 02/10/18at 08:03 ; Start 01/23/18 at 09:00 Carvedilol (Coreg) 3.125 mg DAILY PO Last administered on 02/10/18at 08:04; Start 01/23/18 at 09:00 Cetirizine HCl (ZyrTEC) 10 mg PRN DAILY PRN PO ALLERGIES Last administered on at 08:45; Start 01/23/18 at 09:00 Non-Formulary Medication (Garlic ) 2,000 mg DAILY PO ; Start 01/23/18 at 09:00; Stop 01/23/18 at 09:00; Status DC Lactobacillus Rhamnosus (Culturelle) 1 cap DAILY PO Last administered on at 08:04; Start 01/23/18 at 09:00 Levothyroxine Sodium (Synthroid) 50 mcg DAILY07 PO Last administered on at 05:46; Start 01/23/18 at 07:00; Stop 01/23/18 at 14:03; Status DC Magnesium Oxide (Magnesium Oxide) 400 mg DAILY PO Last administered on at 08:05; Start 01/23/18 at 09:00 Naproxen (Naprosyn) 500 mg DAILY PO Last administered on 02/05/18at 09:21; Start 01/23/18 at 09:00; Stop 02/05/18 at 18:03; Status DC Polyethylene Glycol (miraLAX) 17 gm PRN DAILY PRN PO CONSTIPATION; Start at 09:00 Artificial Tears (Refresh Classic) 1 drop PRN DAILY PRN OU DRY EYE; Start 01/22 at 22:45 Acetaminophen (Tylenol) 650 mg PRN Q4HRS PRN PO PAIN / TEMP Last administered on 02/06/18at 00:30; Start 01/22/18 at 22:30 Levothyroxine Sodium (Synthroid) 50 mcg DAILY06 PO Last administered on at 06:04; Start 01/24/18 at 06:00; Stop 01/25/18 at 15:10; Status DC Sertraline HCl (Zoloft) 25 mg DAILY PO Last administered on 01/26/18at 10:44; Start 01/24/18 at 09:00; Stop 01/27/18 at 08:59; Status DC Sertraline HCl (Zoloft) 50 mg DAILY PO Last administered on 02/09/18at 07:42; Start 01/27/18 at 09:00; Stop 02/09/18 at 18:40; Status DC Olanzapine (ZyPREXA ZYDIS) 2.5 mg PRN Q2HR PRN PO PSYCHOSIS Last administered on 02/03/18at 21:31; Start 01/24/18 at 22:00 Levothyroxine Sodium (Synthroid) 75 mcg DAILY06 PO Last administered on at 06:39; Start 01/26/18 at 06:00 Fosfomycin Tromethamine (Monurol) 3 gm 1X ONCE PO Last administered on 18:03; Start 01/25/18 at 16:00; Stop 01/25/18 at 16:01; Status DC Mirtazapine (Remeron) 7.5 mg QHS PO Last administered on 01/26/18at 20:06; Start 01/26/18 at 21:00; Stop 01/27/18 at 18:49; Status DC Naproxen (Naprosyn) 500 mg 1X ONCE PO Last administered on 01/27/18at 08:10; Start 01/27/18 at 08:30; Stop 01/27/18 at 08:32; Status DC Vitamin D (Vitamin D3) 50,000 unit WEEKLY PO Last administered on 02/10/18at 08: 05; Start 01/27/18 at 13:30 Mirtazapine (Remeron) 15 mg QHS PO Last administered on 02/10/18at 20:22; Start 01/27/18 at 21:00 Trazodone HCl (Desyrel) 50 mg PRN QHS PRN PO INSOMNIA, MAY REPEAT X1 Last administered on 01/31/18at 20:04; Start 01/28/18 at 18:30; Stop 02/01/18 at 20:18; Status DC Trazodone HCl (Desyrel) 50 mg HS PO Last administered on 02/10/18at 20:22; Start 02/01/18 at 21:00 Trazodone HCl (Desyrel) 50 mg PRN QHS PRN PO INSOMNIA Last administered on 02/07at 22:11; Start 02/01/18 at 20:30 Lorazepam (Ativan) 0.25 mg QHS PO Last administered on 02/06/18at 19:48; Start 02/05/18 at 21:00; Stop 02/06/18 at 21:02; Status DC Sertraline HCl (Zoloft) 75 mg DAILY PO Last administered on 02/10/18at 08:06; Start 02/10/18 at 09:00 Active Scripts Active Reported Vitamin D3 (Cholecalciferol (Vitamin D3)) 1,000 Unit Tablet 1,000 Unit PO EVERY SUN,WED,FRI Vitamin B-12 (Cyanocobalamin (Vitamin B-12)) 1,000 Mcg Tablet 1,000 Mcg PO DAILY Tylenol (Acetaminophen) 325 Mg Tablet 650 Mg PO PRN Q4HRS PRN Systane 0.3-0.4% Eye Drops (Propylene Glycol/Peg 400) 15 Ml Drops 1 Drop OU PRN PRN Synthroid (Levothyroxine Sodium) 50 Mcg Tablet 50 Mcg PO DAILYAC Seroquel (Quetiapine Fumarate) 50 Mg Tablet 50 Mg PO TID Klor-Con M20 (Potassium Chloride) 20 Meq Tab.er.prt 20 Meq PO DAILY Naprosyn (Naproxen) 500 Mg Tablet 500 Mg PO DAILY Miralax (Polyethylene Glycol 3350) 17 Gm Powd.pack 17 Gm PO PRN Q24HRS PRN Magnesium Oxide 400 Mg Tablet 400 Mg PO DAILY Lasix (Furosemide) 20 Mg Tablet 20 Mg PO DAILY Ipratropium [place] 0.2 Mg/1 Ml Solution 0.2 Mg IH PRN Q4HRS PRN Garlic 1,000 Mg Capsule 2,000 Mg PO DAILY Fish Oil 1,000 Mg Capsule ([place]-3 Fatty Acids/Fish Oil) 1 Each Capsule 1 Each PO DAILY Duoneb 0.5-3(2.5) Mg/3 Ml (Albuterol/Ipratropium) 3 Ml Ampul.neb 3 Ml NEB PRN QID PRN Diltiazem 24HR Cd (Diltiazem Hcl) 120 Mg Cap.er.24h 120 Mg PO DAILY Culturelle (Lactobacillus Rhamnosus Gg) 1 Each Capsule 1 Each PO DAILY Carvedilol 3.125 Mg Tablet 3.125 Mg PO DAILY Ativan (Lorazepam) 0.5 Mg Tablet 0.5 Mg PO PRN Q4HRS PRN Ativan (Lorazepam) 0.5 Mg Tablet 0.5 Mg PO HS Aspirin 325 Mg Tablet 325 Mg PO DAILY Amiodarone Hcl 200 Mg Tablet 200 Mg PO DAILY Janiya Allergy (Fexofenadine Hcl) 180 Mg Tablet 180 Mg PO PRN DAILY PRN I have reviewed the current psychotropics carefully including drug interactions. Risk benefit ratio favors no change other than as noted in my dictated progress note. Diagnosis: Problems: (1) Anxiety disorder (2) Dementia in Alzheimer's disease with delusions (3) Dementia in Alzheimer's disease with depression (4) Dementia, vascular, with delusions (5) Dementia, vascular, with depression (6) Impulse control disorder SANDER RASMUSSEN MD Feb 10, 2018 21:07
[2018-02-11] MEDS: LEVOTHYROXINE 75 MCG TABLET PO SCH (06:02)
[2018-02-11 06:10] VITALS: BP 145/65
[2018-02-11] MEDS: SERTRALINE 25 MG TABLET. PO SCH (08:29)
[2018-02-11] MEDS: POTASSIUM CHLORIDE 20 MEQ TABLET.ER. PO SCH (08:30)
[2018-02-11] MEDS: LACTOBACILLUS RHAMNOSUS GG 1 CAPSULE. PO SCH (08:30)
[2018-02-11] MEDS: CYANOCOBALAMIN (VITAMIN B-12) 1,000 MCG TABLET. PO SCH (08:30)
[2018-02-11] MEDS: CARVEDILOL 3.125 MG TABLET PO SCH (08:30)
[2018-02-11] MEDS: OMEGA-3 FATTY ACIDS/FISH OIL 1,000 MG CAPSULE. PO SCH (08:30)
[2018-02-11] MEDS: FUROSEMIDE 20 MG TABLET PO SCH (08:31)
[2018-02-11] MEDS: QUEtiapine 50 MG TABLET. PO SCH ×3 (08:31→19:59)
[2018-02-11] MEDS: AMIODARONE HCL 200 MG TABLET PO SCH (08:32)
[2018-02-11] MEDS: MAGNESIUM OXIDE 400 MG TABLET PO SCH (08:32)
--- NOTE | 2018-02-11 09:58 | PN ---
DATE: 02/09/2018 PSYCHIATRIC PROGRESS NOTE This is a late entry 02/09/2018 covers elements not covered in my initial note. SUBJECTIVE: I met with the patient in the evening. The patient slept 6 hours previous evening. The patient remains quite confused, somewhat paranoid, delusional, suspicious, as I met with her, thought another female patient who was following her who was going to rachel her and was quite paranoid. REVIEW OF SYSTEMS: No CV, , pulmonary, eye, ENT system symptoms on review. MENTAL STATUS EXAM: Oriented to herself. Insight, judgment, recent and remote memory, attention, concentration, fund of knowledge poor, consistent with her diagnosis mentioned in my initial note. PLAN: Increase Zoloft from 50 mg a day to 75 mg a day after she has been on 50 for 3 days. Continue rest unchanged. Seroquel 50 mg t.i.d. will be continued. MAN Bridget RASMUSSEN MD DR: CONCETTA/hazel JOB#: [id number] / [id number]
--- NOTE | 2018-02-11 14:09 | PN ---
DATE: 02/10/2018 This is a late entry for 02/10/2018 and covers elements not covered in my initial note. SUBJECTIVE: I met with the patient in the evening. The patient slept 5-3/4 hours previous evening, somewhat withdrawn to her room. Otherwise, pleasant, somewhat suspicious about money matters. REVIEW OF SYSTEMS: No CV, , pulmonary, eye, ENT system symptoms on review. Reliability poor. MENTAL STATUS EXAM: Oriented to herself. Insight, judgment, recent and remote memory, attention, concentration, fund of knowledge poor, consistent with her diagnosis as mentioned in my initial note. PLAN: Continue current psychotropics as mentioned in my initial note. May increase the Seroquel further if paranoia persists along with agitation. MAN Bridget RASMUSSEN MD DR: CONCETTA/hazel JOB#: [id number] / [id number]
[2018-02-11 17:15] VITALS: BP 96/64
[2018-02-11] MEDS: MIRTAZAPINE 15 MG TABLET PO SCH (19:59)
[2018-02-11] MEDS: traZODone 50 MG TABLET. PO SCH (19:59)
--- NOTE | 2018-02-11 20:56 | PDOC ---
Exam Note: Aakash Note: Please also refer to the separate dictated note~for this date of service dictated separately.~Patient seen individually. Discussed the patient with Nursing staff reviewed the chart.~Reviewed interim history and current functioning. Reviewed vital signs,~Labs/ Radiology~and current medications noted below. Continue current treatment with the changes noted in the dictated addendum note Assessment: Vital Signs: Vital Signs Date Time Temp Pulse Resp B/P (MAP) Pulse Ox O2 Delivery O2 Flow Rate FiO2 02/11/18 17:15 98.4 52 18 96/64 (75) 95 02/09/18 16:26 Room Air I&O Intake and Output 02/11/18 07:00 Intake Total 960 ml Balance 960 ml Intake Oral 960 ml Current Medications: Meds: Current Medications Acetaminophen (Tylenol) 650 mg PRN Q6HRS PRN PO PAIN / TEMP; Start 01/22/18 at 21:30; Stop 01/22/18 at 22:23; Status DC Multi-Ingredient Ointment (Analgesic [place]) 1 morenita PRN QID PRN TP MUSCLE PAIN Last administered on 02/06/18at 00:30; Start 01/22/18 at 21:30 Al Hydroxide/Mg Hydroxide (Mylanta Plus Xs) 15 ml PRN AFTMEALHC PRN PO DYSPEPSIA; Start 01/22/18 at 21:30 Magnesium Hydroxide (Milk Of Magnesia) 2,400 mg PRN QHS PRN PO CONSTIPATION; Start 01/22/18 at 21:30 Lorazepam (Ativan) 0.5 mg QHS PO Last administered on 02/04/18at 19:47; Start at 22:30; Stop 02/05/18 at 10:55; Status DC Lorazepam (Ativan) 0.5 mg PRN Q4HRS PRN PO ANXIETY / AGITATION Last administered on 02/07/18at 22:11; Start 01/22/18 at 22:30 Quetiapine Fumarate (SEROquel) 50 mg TID PO Last administered on 02/11/18at 19: 59; Start 01/22/18 at 22:30 Acetaminophen (Tylenol) 650 mg PRN Q4HRS PRN PO PAIN; Start 01/22/18 at 22:15; Stop 01/22/18 at 22:24; Status DC Aspirin ([place] Aspirin) 325 mg DAILY PO Last administered on 02/05/18 09:21; Start 01/23/18 at 09:00; Stop 02/05/18 at 18:03; Status DC Vitamin D (Vitamin D3) 1,000 unit QMWF PO Last administered on 01/26/18 10:44; Start 01/23/18 at 16:00; Stop 01/27/18 at 13:40; Status DC Cyanocobalamin (Vitamin B-12) 1,000 mcg DAILY PO Last administered on 08:30; Start 01/23/18 at 09:00 Diltiazem HCl (Cardizem 24hr Cd) 120 mg DAILY PO Last administered on 01/24/18 07:57; Start 01/23/18 at 09:00; Stop 01/25/18 at 15:15; Status DC Furosemide (Lasix) 20 mg DAILY PO Last administered on 02/11/18 08:31; Start 01/23/18 at 09:00 Ipratropium [place] (Atrovent) 0.2 mg PRN Q4HRS PRN IH SHORTNESS OF BREATH; Start 01/22/18 at 22:15 Albuterol/ Ipratropium (Duoneb) 3 ml PRN QID PRN NEB SHORTNESS OF BREATH; Start 01/22/18 at 22:15 Fish Oil (Fish Oil) 1,000 mg DAILY PO Last administered on 02/11/18 08:30; Start 01/23/18 at 09:00 Potassium Chloride (Klor-Con) 20 meq DAILY PO Last administered on 02/11/18 08 :30; Start 01/23/18 at 09:00 Amiodarone HCl (Cordarone) 200 mg DAILY PO Last administered on 02/11/18 08:32 ; Start 01/23/18 at 09:00 Carvedilol (Coreg) 3.125 mg DAILY PO Last administered on 02/11/18 08:30; Start 01/23/18 at 09:00 Cetirizine HCl (ZyrTEC) 10 mg PRN DAILY PRN PO ALLERGIES Last administered on 08:45; Start 01/23/18 at 09:00 Non-Formulary Medication (Garlic ) 2,000 mg DAILY PO ; Start 01/23/18 at 09:00; Stop 01/23/18 at 09:00; Status DC Lactobacillus Rhamnosus (Culturelle) 1 cap DAILY PO Last administered on at 08:30; Start 01/23/18 at 09:00 Levothyroxine Sodium (Synthroid) 50 mcg DAILY07 PO Last administered on at 05:46; Start 01/23/18 at 07:00; Stop 01/23/18 at 14:03; Status DC Magnesium Oxide (Magnesium Oxide) 400 mg DAILY PO Last administered on at 08:32; Start 01/23/18 at 09:00 Naproxen (Naprosyn) 500 mg DAILY PO Last administered on 02/05/18at 09:21; Start 01/23/18 at 09:00; Stop 02/05/18 at 18:03; Status DC Polyethylene Glycol (miraLAX) 17 gm PRN DAILY PRN PO CONSTIPATION; Start at 09:00 Artificial Tears (Refresh Classic) 1 drop PRN DAILY PRN OU DRY EYE; Start 01/22 at 22:45 Acetaminophen (Tylenol) 650 mg PRN Q4HRS PRN PO PAIN / TEMP Last administered on 02/06/18at 00:30; Start 01/22/18 at 22:30 Levothyroxine Sodium (Synthroid) 50 mcg DAILY06 PO Last administered on at 06:04; Start 01/24/18 at 06:00; Stop 01/25/18 at 15:10; Status DC Sertraline HCl (Zoloft) 25 mg DAILY PO Last administered on 01/26/18at 10:44; Start 01/24/18 at 09:00; Stop 01/27/18 at 08:59; Status DC Sertraline HCl (Zoloft) 50 mg DAILY PO Last administered on 02/09/18at 07:42; Start 01/27/18 at 09:00; Stop 02/09/18 at 18:40; Status DC Olanzapine (ZyPREXA ZYDIS) 2.5 mg PRN Q2HR PRN PO PSYCHOSIS Last administered on 02/03/18at 21:31; Start 01/24/18 at 22:00 Levothyroxine Sodium (Synthroid) 75 mcg DAILY06 PO Last administered on 06:02; Start 01/26/18 at 06:00 Fosfomycin Tromethamine (Monurol) 3 gm 1X ONCE PO Last administered on 18:03; Start 01/25/18 at 16:00; Stop 01/25/18 at 16:01; Status DC Mirtazapine (Remeron) 7.5 mg QHS PO Last administered on 01/26/18 20:06; Start 01/26/18 at 21:00; Stop 01/27/18 at 18:49; Status DC Naproxen (Naprosyn) 500 mg 1X ONCE PO Last administered on 01/27/18 08:10; Start 01/27/18 at 08:30; Stop 01/27/18 at 08:32; Status DC Vitamin D (Vitamin D3) 50,000 unit WEEKLY PO Last administered on 02/10/18at 08: 05; Start 01/27/18 at 13:30 Mirtazapine (Remeron) 15 mg QHS PO Last administered on 02/11/18at 19:59; Start 01/27/18 at 21:00 Trazodone HCl (Desyrel) 50 mg PRN QHS PRN PO INSOMNIA, MAY REPEAT X1 Last administered on 01/31/18at 20:04; Start 01/28/18 at 18:30; Stop 02/01/18 at 20:18; Status DC Trazodone HCl (Desyrel) 50 mg HS PO Last administered on 02/11/18at 19:59; Start 02/01/18 at 21:00 Trazodone HCl (Desyrel) 50 mg PRN QHS PRN PO INSOMNIA Last administered on 02/07at 22:11; Start 02/01/18 at 20:30 Lorazepam (Ativan) 0.25 mg QHS PO Last administered on 02/06/18at 19:48; Start 02/05/18 at 21:00; Stop 02/06/18 at 21:02; Status DC Sertraline HCl (Zoloft) 75 mg DAILY PO Last administered on 02/11/18at 08:29; Start 02/10/18 at 09:00 Active Scripts Active Reported Vitamin D3 (Cholecalciferol (Vitamin D3)) 1,000 Unit Tablet 1,000 Unit PO EVERY FRI,WED,FRI Vitamin B-12 (Cyanocobalamin (Vitamin B-12)) 1,000 Mcg Tablet 1,000 Mcg PO DAILY Tylenol (Acetaminophen) 325 Mg Tablet 650 Mg PO PRN Q4HRS PRN Systane 0.3-0.4% Eye Drops (Propylene Glycol/Peg 400) 15 Ml Drops 1 Drop OU PRN PRN Synthroid (Levothyroxine Sodium) 50 Mcg Tablet 50 Mcg PO DAILYAC Seroquel (Quetiapine Fumarate) 50 Mg Tablet 50 Mg PO TID Klor-Con M20 (Potassium Chloride) 20 Meq Tab.er.prt 20 Meq PO DAILY Naprosyn (Naproxen) 500 Mg Tablet 500 Mg PO DAILY Miralax (Polyethylene Glycol 3350) 17 Gm Powd.pack 17 Gm PO PRN Q24HRS PRN Magnesium Oxide 400 Mg Tablet 400 Mg PO DAILY Lasix (Furosemide) 20 Mg Tablet 20 Mg PO DAILY Ipratropium [place] 0.2 Mg/1 Ml Solution 0.2 Mg IH PRN Q4HRS PRN Garlic 1,000 Mg Capsule 2,000 Mg PO DAILY Fish Oil 1,000 Mg Capsule ([place]-3 Fatty Acids/Fish Oil) 1 Each Capsule 1 Each PO DAILY Duoneb 0.5-3(2.5) Mg/3 Ml (Albuterol/Ipratropium) 3 Ml Ampul.neb 3 Ml NEB PRN QID PRN Diltiazem 24HR Cd (Diltiazem Hcl) 120 Mg Cap.er.24h 120 Mg PO DAILY Culturelle (Lactobacillus Rhamnosus Gg) 1 Each Capsule 1 Each PO DAILY Carvedilol 3.125 Mg Tablet 3.125 Mg PO DAILY Ativan (Lorazepam) 0.5 Mg Tablet 0.5 Mg PO PRN Q4HRS PRN Ativan (Lorazepam) 0.5 Mg Tablet 0.5 Mg PO HS Aspirin 325 Mg Tablet 325 Mg PO DAILY Amiodarone Hcl 200 Mg Tablet 200 Mg PO DAILY Janiya Allergy (Fexofenadine Hcl) 180 Mg Tablet 180 Mg PO PRN DAILY PRN I have reviewed the current psychotropics carefully including drug interactions. Risk benefit ratio favors no change other than as noted in my dictated progress note. Diagnosis: Problems: (1) Anxiety disorder (2) Dementia in Alzheimer's disease with delusions (3) Dementia in Alzheimer's disease with depression (4) Dementia, vascular, with delusions (5) Dementia, vascular, with depression (6) Impulse control disorder SANDER RASMUSSEN MD Feb 11, 2018 20:56
[2018-02-12 05:57] VITALS: BP 166/81
[2018-02-12] MEDS: LEVOTHYROXINE 75 MCG TABLET PO SCH (06:05)
[2018-02-12] MEDS: OMEGA-3 FATTY ACIDS/FISH OIL 1,000 MG CAPSULE. PO SCH (08:49)
[2018-02-12] MEDS: QUEtiapine 50 MG TABLET. PO SCH ×3 (08:49→20:32)
[2018-02-12] MEDS: LACTOBACILLUS RHAMNOSUS GG 1 CAPSULE. PO SCH (08:49)
[2018-02-12] MEDS: CYANOCOBALAMIN (VITAMIN B-12) 1,000 MCG TABLET. PO SCH (08:49)
[2018-02-12] MEDS: SERTRALINE 25 MG TABLET. PO SCH (08:50)
[2018-02-12] MEDS: MAGNESIUM OXIDE 400 MG TABLET PO SCH (08:50)
[2018-02-12] MEDS: POTASSIUM CHLORIDE 20 MEQ TABLET.ER. PO SCH (08:50)
[2018-02-12] MEDS: AMIODARONE HCL 200 MG TABLET PO SCH (08:50)
[2018-02-12] MEDS: FUROSEMIDE 20 MG TABLET PO SCH (08:50)
[2018-02-12] MEDS: CARVEDILOL 3.125 MG TABLET PO SCH (08:51)
[2018-02-12 16:13] VITALS: BP 159/71
[2018-02-12] MEDS: MIRTAZAPINE 15 MG TABLET PO SCH (20:32)
[2018-02-12] MEDS: traZODone 50 MG TABLET. PO SCH (20:32)
--- NOTE | 2018-02-12 20:56 | PDOC ---
Exam Note: Aakash Note: Please also refer to the separate dictated note~for this date of service dictated separately.~Patient seen individually. Discussed the patient with Nursing staff reviewed the chart.~Reviewed interim history and current functioning. Reviewed vital signs,~Labs/ Radiology~and current medications noted below. Continue current treatment with the changes noted in the dictated addendum note Assessment: Vital Signs: Vital Signs Date Time Temp Pulse Resp B/P (MAP) Pulse Ox O2 Delivery O2 Flow Rate FiO2 02/12/18 16:13 98.1 59 18 159/71 (100) 98 02/09/18 16:26 Room Air I&O Intake and Output 02/12/18 07:00 Intake Total 1180 ml Balance 1180 ml Intake Oral 1180 ml Current Medications: Meds: Current Medications Acetaminophen (Tylenol) 650 mg PRN Q6HRS PRN PO PAIN / TEMP; Start 01/22/18 at 21:30; Stop 01/22/18 at 22:23; Status DC Multi-Ingredient Ointment (Analgesic [place]) 1 morenita PRN QID PRN TP MUSCLE PAIN Last administered on 02/06/18at 00:30; Start 01/22/18 at 21:30 Al Hydroxide/Mg Hydroxide (Mylanta Plus Xs) 15 ml PRN AFTMEALHC PRN PO DYSPEPSIA; Start 01/22/18 at 21:30 Magnesium Hydroxide (Milk Of Magnesia) 2,400 mg PRN QHS PRN PO CONSTIPATION; Start 01/22/18 at 21:30 Lorazepam (Ativan) 0.5 mg QHS PO Last administered on 02/04/18at 19:47; Start at 22:30; Stop 02/05/18 at 10:55; Status DC Lorazepam (Ativan) 0.5 mg PRN Q4HRS PRN PO ANXIETY / AGITATION Last administered on 02/07/18at 22:11; Start 01/22/18 at 22:30 Quetiapine Fumarate (SEROquel) 50 mg TID PO Last administered on 02/12/18at 20: 32; Start 01/22/18 at 22:30 Acetaminophen (Tylenol) 650 mg PRN Q4HRS PRN PO PAIN; Start 01/22/18 at 22:15; Stop 01/22/18 at 22:24; Status DC Aspirin ([place] Aspirin) 325 mg DAILY PO Last administered on 02/05/18 09:21; Start 01/23/18 at 09:00; Stop 02/05/18 at 18:03; Status DC Vitamin D (Vitamin D3) 1,000 unit QMWF PO Last administered on 01/26/18 10:44; Start 01/23/18 at 16:00; Stop 01/27/18 at 13:40; Status DC Cyanocobalamin (Vitamin B-12) 1,000 mcg DAILY PO Last administered on 08:49; Start 01/23/18 at 09:00 Diltiazem HCl (Cardizem 24hr Cd) 120 mg DAILY PO Last administered on 01/24/18 07:57; Start 01/23/18 at 09:00; Stop 01/25/18 at 15:15; Status DC Furosemide (Lasix) 20 mg DAILY PO Last administered on 02/12/18at 08:50; Start 01/23/18 at 09:00 Ipratropium [place] (Atrovent) 0.2 mg PRN Q4HRS PRN IH SHORTNESS OF BREATH; Start 01/22/18 at 22:15 Albuterol/ Ipratropium (Duoneb) 3 ml PRN QID PRN NEB SHORTNESS OF BREATH; Start 01/22/18 at 22:15 Fish Oil (Fish Oil) 1,000 mg DAILY PO Last administered on 02/12/18at 08:49; Start 01/23/18 at 09:00 Potassium Chloride (Klor-Con) 20 meq DAILY PO Last administered on 02/12/18at 08 :50; Start 01/23/18 at 09:00 Amiodarone HCl (Cordarone) 200 mg DAILY PO Last administered on 02/12/18at 08:50 ; Start 01/23/18 at 09:00 Carvedilol (Coreg) 3.125 mg DAILY PO Last administered on 02/12/18at 08:51; Start 01/23/18 at 09:00 Cetirizine HCl (ZyrTEC) 10 mg PRN DAILY PRN PO ALLERGIES Last administered on at 08:45; Start 01/23/18 at 09:00 Non-Formulary Medication (Garlic ) 2,000 mg DAILY PO ; Start 01/23/18 at 09:00; Stop 01/23/18 at 09:00; Status DC Lactobacillus Rhamnosus (Culturelle) 1 cap DAILY PO Last administered on at 08:49; Start 01/23/18 at 09:00 Levothyroxine Sodium (Synthroid) 50 mcg DAILY07 PO Last administered on at 05:46; Start 01/23/18 at 07:00; Stop 01/23/18 at 14:03; Status DC Magnesium Oxide (Magnesium Oxide) 400 mg DAILY PO Last administered on at 08:50; Start 01/23/18 at 09:00 Naproxen (Naprosyn) 500 mg DAILY PO Last administered on 02/05/18at 09:21; Start 01/23/18 at 09:00; Stop 02/05/18 at 18:03; Status DC Polyethylene Glycol (miraLAX) 17 gm PRN DAILY PRN PO CONSTIPATION; Start at 09:00 Artificial Tears (Refresh Classic) 1 drop PRN DAILY PRN OU DRY EYE; Start 01/22 at 22:45 Acetaminophen (Tylenol) 650 mg PRN Q4HRS PRN PO PAIN / TEMP Last administered on 02/06/18at 00:30; Start 01/22/18 at 22:30 Levothyroxine Sodium (Synthroid) 50 mcg DAILY06 PO Last administered on at 06:04; Start 01/24/18 at 06:00; Stop 01/25/18 at 15:10; Status DC Sertraline HCl (Zoloft) 25 mg DAILY PO Last administered on 01/26/18at 10:44; Start 01/24/18 at 09:00; Stop 01/27/18 at 08:59; Status DC Sertraline HCl (Zoloft) 50 mg DAILY PO Last administered on 02/09/18at 07:42; Start 01/27/18 at 09:00; Stop 02/09/18 at 18:40; Status DC Olanzapine (ZyPREXA ZYDIS) 2.5 mg PRN Q2HR PRN PO PSYCHOSIS Last administered on 02/03/18at 21:31; Start 01/24/18 at 22:00 Levothyroxine Sodium (Synthroid) 75 mcg DAILY06 PO Last administered on 06:05; Start 01/26/18 at 06:00 Fosfomycin Tromethamine (Monurol) 3 gm 1X ONCE PO Last administered on at 18:03; Start 01/25/18 at 16:00; Stop 01/25/18 at 16:01; Status DC Mirtazapine (Remeron) 7.5 mg QHS PO Last administered on 01/26/18 20:06; Start 01/26/18 at 21:00; Stop 01/27/18 at 18:49; Status DC Naproxen (Naprosyn) 500 mg 1X ONCE PO Last administered on 01/27/18at 08:10; Start 01/27/18 at 08:30; Stop 01/27/18 at 08:32; Status DC Vitamin D (Vitamin D3) 50,000 unit WEEKLY PO Last administered on 02/10/18at 08: 05; Start 01/27/18 at 13:30 Mirtazapine (Remeron) 15 mg QHS PO Last administered on 02/12/18at 20:32; Start 01/27/18 at 21:00 Trazodone HCl (Desyrel) 50 mg PRN QHS PRN PO INSOMNIA, MAY REPEAT X1 Last administered on 01/31/18at 20:04; Start 01/28/18 at 18:30; Stop 02/01/18 at 20:18; Status DC Trazodone HCl (Desyrel) 50 mg HS PO Last administered on 02/12/18at 20:32; Start 02/01/18 at 21:00 Trazodone HCl (Desyrel) 50 mg PRN QHS PRN PO INSOMNIA Last administered on 02/07at 22:11; Start 02/01/18 at 20:30 Lorazepam (Ativan) 0.25 mg QHS PO Last administered on 02/06/18at 19:48; Start 02/05/18 at 21:00; Stop 02/06/18 at 21:02; Status DC Sertraline HCl (Zoloft) 75 mg DAILY PO Last administered on 02/12/18at 08:50; Start 02/10/18 at 09:00 Active Scripts Active Reported Vitamin D3 (Cholecalciferol (Vitamin D3)) 1,000 Unit Tablet 1,000 Unit PO EVERY FRI,WED,FRI Vitamin B-12 (Cyanocobalamin (Vitamin B-12)) 1,000 Mcg Tablet 1,000 Mcg PO DAILY Tylenol (Acetaminophen) 325 Mg Tablet 650 Mg PO PRN Q4HRS PRN Systane 0.3-0.4% Eye Drops (Propylene Glycol/Peg 400) 15 Ml Drops 1 Drop OU PRN PRN Synthroid (Levothyroxine Sodium) 50 Mcg Tablet 50 Mcg PO DAILYAC Seroquel (Quetiapine Fumarate) 50 Mg Tablet 50 Mg PO TID Klor-Con M20 (Potassium Chloride) 20 Meq Tab.er.prt 20 Meq PO DAILY Naprosyn (Naproxen) 500 Mg Tablet 500 Mg PO DAILY Miralax (Polyethylene Glycol 3350) 17 Gm Powd.pack 17 Gm PO PRN Q24HRS PRN Magnesium Oxide 400 Mg Tablet 400 Mg PO DAILY Lasix (Furosemide) 20 Mg Tablet 20 Mg PO DAILY Ipratropium [place] 0.2 Mg/1 Ml Solution 0.2 Mg IH PRN Q4HRS PRN Garlic 1,000 Mg Capsule 2,000 Mg PO DAILY Fish Oil 1,000 Mg Capsule ([place]-3 Fatty Acids/Fish Oil) 1 Each Capsule 1 Each PO DAILY Duoneb 0.5-3(2.5) Mg/3 Ml (Albuterol/Ipratropium) 3 Ml Ampul.neb 3 Ml NEB PRN QID PRN Diltiazem 24HR Cd (Diltiazem Hcl) 120 Mg Cap.er.24h 120 Mg PO DAILY Culturelle (Lactobacillus Rhamnosus Gg) 1 Each Capsule 1 Each PO DAILY Carvedilol 3.125 Mg Tablet 3.125 Mg PO DAILY Ativan (Lorazepam) 0.5 Mg Tablet 0.5 Mg PO PRN Q4HRS PRN Ativan (Lorazepam) 0.5 Mg Tablet 0.5 Mg PO HS Aspirin 325 Mg Tablet 325 Mg PO DAILY Amiodarone Hcl 200 Mg Tablet 200 Mg PO DAILY Janiya Allergy (Fexofenadine Hcl) 180 Mg Tablet 180 Mg PO PRN DAILY PRN I have reviewed the current psychotropics carefully including drug interactions. Risk benefit ratio favors no change other than as noted in my dictated progress note. Diagnosis: Problems: (1) Anxiety disorder (2) Dementia in Alzheimer's disease with delusions (3) Dementia in Alzheimer's disease with depression (4) Dementia, vascular, with delusions (5) Dementia, vascular, with depression (6) Impulse control disorder SANDER RASMUSSEN MD Feb 12, 2018 20:56
[2018-02-13 05:57] VITALS: BP 156/91
[2018-02-13 06:19] LABS: BASO # 0.1 x10^3/uL (0.0-0.2); BASO % 1 % (0-3); EOS # 0.3 x10^3/uL (0.0-0.7); EOS % 4 % (0-3); HEMATOCRIT 37.7 % (36.0-47.0); HEMOGLOBIN 12.6 g/dL (12.0-15.5); LYMPH % 17 % (24-48); MEAN CORPUSCULAR HEMOGLOBIN 31 pg (25-35); MEAN CORPUSCULAR HGB CONC 33 g/dL (31-37); MEAN CORPUSCULAR VOLUME 93 fL (79-100); MONO # 0.5 x10^3/uL (0.0-1.1); MONO % 8 % (0-9); NEUT # 4.3 x10^3uL (1.8-7.7); NEUT % 70 % (31-73); PLATELET COUNT 255 x10^3/uL (140-400); RED BLOOD COUNT 4.07 x10^6/uL (3.50-5.40); RED CELL DISTRIBUTION WIDTH 14.2 % (11.5-14.5); WHITE BLOOD COUNT 6.2 x10^3/uL (4.0-11.0)
[2018-02-13] MEDS: LEVOTHYROXINE 75 MCG TABLET PO SCH (06:20)
[2018-02-13 06:37] LABS: ALBUMIN 3.2 g/dL (3.4-5.0); ALBUMIN/GLOBULIN RATIO 0.8 (1.0-1.7); CALCIUM 8.9 mg/dL (8.5-10.1); CREATININE 1.2 mg/dL (0.6-1.0); GFR 43.1; TOTAL BILIRUBIN 0.4 mg/dL (0.2-1.0); TOTAL PROTEIN 7.1 g/dL (6.4-8.2)
[2018-02-13] MEDS: CYANOCOBALAMIN (VITAMIN B-12) 1,000 MCG TABLET. PO SCH (07:48)
[2018-02-13] MEDS: MAGNESIUM OXIDE 400 MG TABLET PO SCH (07:48)
[2018-02-13] MEDS: OMEGA-3 FATTY ACIDS/FISH OIL 1,000 MG CAPSULE. PO SCH (07:48)
[2018-02-13] MEDS: FUROSEMIDE 20 MG TABLET PO SCH (07:48)
[2018-02-13] MEDS: LACTOBACILLUS RHAMNOSUS GG 1 CAPSULE. PO SCH (07:48)
[2018-02-13] MEDS: POTASSIUM CHLORIDE 20 MEQ TABLET.ER. PO SCH (07:48)
[2018-02-13] MEDS: CARVEDILOL 3.125 MG TABLET PO SCH (07:48)
[2018-02-13] MEDS: AMIODARONE HCL 200 MG TABLET PO SCH (07:49)
[2018-02-13] MEDS: QUEtiapine 50 MG TABLET. PO SCH ×3 (07:49→19:34)
[2018-02-13] MEDS: SERTRALINE 25 MG TABLET. PO SCH (07:49)
[2018-02-13 16:20] VITALS: BP 104/66
[2018-02-13] MEDS: MIRTAZAPINE 15 MG TABLET PO SCH (19:34)
[2018-02-13] MEDS: traZODone 50 MG TABLET. PO SCH (19:34)
--- NOTE | 2018-02-13 20:56 | PDOC ---
Exam Note: Aakash Note: Please also refer to the separate dictated note~for this date of service dictated separately.~Patient seen individually. Discussed the patient with Nursing staff reviewed the chart.~Reviewed interim history and current functioning. Reviewed vital signs,~Labs/ Radiology~and current medications noted below. Continue current treatment with the changes noted in the dictated addendum note Assessment: Vital Signs: Vital Signs Date Time Temp Pulse Resp B/P (MAP) Pulse Ox O2 Delivery O2 Flow Rate FiO2 02/13/18 16:20 98.0 57 18 104/66 (79) 95 02/09/18 16:26 Room Air I&O Intake and Output 02/13/18 07:00 Intake Total 1080 ml Balance 1080 ml Intake Oral 1080 ml Labs: Laboratory Tests Test 02/13/18 06:00 White Blood Count 6.2 x10^3/uL (4.0-11.0) Red Blood Count 4.07 x10^6/uL (3.50-5.40) Hemoglobin 12.6 g/dL (12.0-15.5) Hematocrit 37.7 % (36.0-47.0) Mean Corpuscular Volume 93 fL (79-100) Mean Corpuscular Hemoglobin 31 pg (25-35) Mean Corpuscular Hemoglobin Concent 33 g/dL (31-37) Red Cell Distribution Width 14.2 % (11.5-14.5) Platelet Count 255 x10^3/uL (140-400) Neutrophils (%) (Auto) 70 % (31-73) Lymphocytes (%) (Auto) 17 % (24-48) L Monocytes (%) (Auto) 8 % (0-9) Eosinophils (%) (Auto) 4 % (0-3) H Basophils (%) (Auto) 1 % (0-3) Neutrophils # (Auto) 4.3 x10^3uL (1.8-7.7) Lymphocytes # (Auto) 1.0 x10^3/uL (1.0-4.8) Monocytes # (Auto) 0.5 x10^3/uL (0.0-1.1) Eosinophils # (Auto) 0.3 x10^3/uL (0.0-0.7) Basophils # (Auto) 0.1 x10^3/uL (0.0-0.2) Sodium Level 140 mmol/L (136-145) Potassium Level 4.0 mmol/L (3.5-5.1) Chloride Level 104 mmol/L (98-107) Carbon Dioxide Level 29 mmol/L (21-32) Anion Gap 7 (6-14) Blood Urea Nitrogen 17 mg/dL (7-20) Creatinine 1.2 mg/dL (0.6-1.0) H Estimated GFR (Cockcroft-Gault) 43.1 BUN/Creatinine Ratio 14 (6-20) Glucose Level 88 mg/dL (70-99) Calcium Level 8.9 mg/dL (8.5-10.1) Total Bilirubin 0.4 mg/dL (0.2-1.0) Aspartate Amino Transferase (AST) 20 U/L (15-37) Alanine Aminotransferase (ALT) 20 U/L (14-59) Alkaline Phosphatase 113 U/L (46-116) Total Protein 7.1 g/dL (6.4-8.2) Albumin 3.2 g/dL (3.4-5.0) L Albumin/Globulin Ratio 0.8 (1.0-1.7) L Current Medications: Meds: Current Medications Acetaminophen (Tylenol) 650 mg PRN Q6HRS PRN PO PAIN / TEMP; Start 01/22/18 at 21:30; Stop 01/22/18 at 22:23; Status DC Multi-Ingredient Ointment (Analgesic [place]) 1 morenita PRN QID PRN TP MUSCLE PAIN Last administered on 02/06/18at 00:30; Start 01/22/18 at 21:30 Al Hydroxide/Mg Hydroxide (Mylanta Plus Xs) 15 ml PRN AFTMEALHC PRN PO DYSPEPSIA; Start 01/22/18 at 21:30 Magnesium Hydroxide (Milk Of Magnesia) 2,400 mg PRN QHS PRN PO CONSTIPATION; Start 01/22/18 at 21:30 Lorazepam (Ativan) 0.5 mg QHS PO Last administered on 02/04/18at 19:47; Start at 22:30; Stop 02/05/18 at 10:55; Status DC Lorazepam (Ativan) 0.5 mg PRN Q4HRS PRN PO ANXIETY / AGITATION Last administered on 02/07/18at 22:11; Start 01/22/18 at 22:30 Quetiapine Fumarate (SEROquel) 50 mg TID PO Last administered on 02/13/18at 19: 34; Start 01/22/18 at 22:30 Acetaminophen (Tylenol) 650 mg PRN Q4HRS PRN PO PAIN; Start 01/22/18 at 22:15; Stop 01/22/18 at 22:24; Status DC Aspirin ([place] Aspirin) 325 mg DAILY PO Last administered on 02/05/18at 09:21; Start 01/23/18 at 09:00; Stop 02/05/18 at 18:03; Status DC Vitamin D (Vitamin D3) 1,000 unit QMWF PO Last administered on 01/26/18at 10:44; Start 01/23/18 at 16:00; Stop 01/27/18 at 13:40; Status DC Cyanocobalamin (Vitamin B-12) 1,000 mcg DAILY PO Last administered on at 07:48; Start 01/23/18 at 09:00 Diltiazem HCl (Cardizem 24hr Cd) 120 mg DAILY PO Last administered on 01/24/18at 07:57; Start 01/23/18 at 09:00; Stop 01/25/18 at 15:15; Status DC Furosemide (Lasix) 20 mg DAILY PO Last administered on 02/13/18at 07:48; Start 01/23/18 at 09:00 Ipratropium [place] (Atrovent) 0.2 mg PRN Q4HRS PRN IH SHORTNESS OF BREATH; Start 01/22/18 at 22:15 Albuterol/ Ipratropium (Duoneb) 3 ml PRN QID PRN NEB SHORTNESS OF BREATH; Start 01/22/18 at 22:15 Fish Oil (Fish Oil) 1,000 mg DAILY PO Last administered on 02/13/18at 07:48; Start 01/23/18 at 09:00 Potassium Chloride (Klor-Con) 20 meq DAILY PO Last administered on 02/13/18at 07 :48; Start 01/23/18 at 09:00 Amiodarone HCl (Cordarone) 200 mg DAILY PO Last administered on 02/13/18at 07:49 ; Start 01/23/18 at 09:00 Carvedilol (Coreg) 3.125 mg DAILY PO Last administered on 02/13/18at 07:48; Start 01/23/18 at 09:00 Cetirizine HCl (ZyrTEC) 10 mg PRN DAILY PRN PO ALLERGIES Last administered on at 08:45; Start 01/23/18 at 09:00 Non-Formulary Medication (Garlic ) 2,000 mg DAILY PO ; Start 01/23/18 at 09:00; Stop 01/23/18 at 09:00; Status DC Lactobacillus Rhamnosus (Culturelle) 1 cap DAILY PO Last administered on at 07:48; Start 01/23/18 at 09:00 Levothyroxine Sodium (Synthroid) 50 mcg DAILY07 PO Last administered on at 05:46; Start 01/23/18 at 07:00; Stop 01/23/18 at 14:03; Status DC Magnesium Oxide (Magnesium Oxide) 400 mg DAILY PO Last administered on at 07:48; Start 01/23/18 at 09:00 Naproxen (Naprosyn) 500 mg DAILY PO Last administered on 02/05/18at 09:21; Start 01/23/18 at 09:00; Stop 02/05/18 at 18:03; Status DC Polyethylene Glycol (miraLAX) 17 gm PRN DAILY PRN PO CONSTIPATION; Start at 09:00 Artificial Tears (Refresh Classic) 1 drop PRN DAILY PRN OU DRY EYE; Start 01/22 at 22:45 Acetaminophen (Tylenol) 650 mg PRN Q4HRS PRN PO PAIN / TEMP Last administered on 02/06/18at 00:30; Start 01/22/18 at 22:30 Levothyroxine Sodium (Synthroid) 50 mcg DAILY06 PO Last administered on at 06:04; Start 01/24/18 at 06:00; Stop 01/25/18 at 15:10; Status DC Sertraline HCl (Zoloft) 25 mg DAILY PO Last administered on 01/26/18at 10:44; Start 01/24/18 at 09:00; Stop 01/27/18 at 08:59; Status DC Sertraline HCl (Zoloft) 50 mg DAILY PO Last administered on 02/09/18at 07:42; Start 01/27/18 at 09:00; Stop 02/09/18 at 18:40; Status DC Olanzapine (ZyPREXA ZYDIS) 2.5 mg PRN Q2HR PRN PO PSYCHOSIS Last administered on 02/03/18at 21:31; Start 01/24/18 at 22:00 Levothyroxine Sodium (Synthroid) 75 mcg DAILY06 PO Last administered on 06:20; Start 01/26/18 at 06:00 Fosfomycin Tromethamine (Monurol) 3 gm 1X ONCE PO Last administered on 18:03; Start 01/25/18 at 16:00; Stop 01/25/18 at 16:01; Status DC Mirtazapine (Remeron) 7.5 mg QHS PO Last administered on 01/26/18 20:06; Start 01/26/18 at 21:00; Stop 01/27/18 at 18:49; Status DC Naproxen (Naprosyn) 500 mg 1X ONCE PO Last administered on 01/27/18at 08:10; Start 01/27/18 at 08:30; Stop 01/27/18 at 08:32; Status DC Vitamin D (Vitamin D3) 50,000 unit WEEKLY PO Last administered on 02/10/18at 08: 05; Start 01/27/18 at 13:30 Mirtazapine (Remeron) 15 mg QHS PO Last administered on 02/13/18 19:34; Start 01/27/18 at 21:00 Trazodone HCl (Desyrel) 50 mg PRN QHS PRN PO INSOMNIA, MAY REPEAT X1 Last administered on 01/31/18at 20:04; Start 01/28/18 at 18:30; Stop 02/01/18 at 20:18; Status DC Trazodone HCl (Desyrel) 50 mg HS PO Last administered on 02/13/18 19:34; Start 02/01/18 at 21:00 Trazodone HCl (Desyrel) 50 mg PRN QHS PRN PO INSOMNIA Last administered on 02/07at 22:11; Start 02/01/18 at 20:30 Lorazepam (Ativan) 0.25 mg QHS PO Last administered on 6/15/18at 19:48; Start 02/05/18 at 21:00; Stop 02/06/18 at 21:02; Status DC Sertraline HCl (Zoloft) 75 mg DAILY PO Last administered on 02/13/18at 07:49; Start 02/10/18 at 09:00 Active Scripts Active Reported Vitamin D3 (Cholecalciferol (Vitamin D3)) 1,000 Unit Tablet 1,000 Unit PO EVERY FRI,FRI,FRI Vitamin B-12 (Cyanocobalamin (Vitamin B-12)) 1,000 Mcg Tablet 1,000 Mcg PO DAILY Tylenol (Acetaminophen) 325 Mg Tablet 650 Mg PO PRN Q4HRS PRN Systane 0.3-0.4% Eye Drops (Propylene Glycol/Peg 400) 15 Ml Drops 1 Drop OU PRN PRN Synthroid (Levothyroxine Sodium) 50 Mcg Tablet 50 Mcg PO DAILYAC Seroquel (Quetiapine Fumarate) 50 Mg Tablet 50 Mg PO TID Klor-Con M20 (Potassium Chloride) 20 Meq Tab.er.prt 20 Meq PO DAILY Naprosyn (Naproxen) 500 Mg Tablet 500 Mg PO DAILY Miralax (Polyethylene Glycol 3350) 17 Gm Powd.pack 17 Gm PO PRN Q24HRS PRN Magnesium Oxide 400 Mg Tablet 400 Mg PO DAILY Lasix (Furosemide) 20 Mg Tablet 20 Mg PO DAILY Ipratropium [place] 0.2 Mg/1 Ml Solution 0.2 Mg IH PRN Q4HRS PRN Garlic 1,000 Mg Capsule 2,000 Mg PO DAILY Fish Oil 1,000 Mg Capsule ([place]-3 Fatty Acids/Fish Oil) 1 Each Capsule 1 Each PO DAILY Duoneb 0.5-3(2.5) Mg/3 Ml (Albuterol/Ipratropium) 3 Ml Ampul.neb 3 Ml NEB PRN QID PRN Diltiazem 24HR Cd (Diltiazem Hcl) 120 Mg Cap.er.24h 120 Mg PO DAILY Culturelle (Lactobacillus Rhamnosus Gg) 1 Each Capsule 1 Each PO DAILY Carvedilol 3.125 Mg Tablet 3.125 Mg PO DAILY Ativan (Lorazepam) 0.5 Mg Tablet 0.5 Mg PO PRN Q4HRS PRN Ativan (Lorazepam) 0.5 Mg Tablet 0.5 Mg PO HS Aspirin 325 Mg Tablet 325 Mg PO DAILY Amiodarone Hcl 200 Mg Tablet 200 Mg PO DAILY Janiya Allergy (Fexofenadine Hcl) 180 Mg Tablet 180 Mg PO PRN DAILY PRN I have reviewed the current psychotropics carefully including drug interactions. Risk benefit ratio favors no change other than as noted in my dictated progress note. Diagnosis: Problems: (1) Anxiety disorder (2) Dementia in Alzheimer's disease with delusions (3) Dementia in Alzheimer's disease with depression (4) Dementia, vascular, with delusions (5) Dementia, vascular, with depression (6) Impulse control disorder SANDER RASMUSSEN MD Feb 13, 2018 20:56
--- NOTE | 2018-02-14 00:57 | PN ---
DATE: 02/12/2018 This late entry 02/12/2018 covers elements not covered in my initial note. SUBJECTIVE: I met with the patient in the evening. The patient slept 6 hours previous evening, remains confused, but redirectable. REVIEW OF SYSTEMS: No CV, , pulmonary, eye, ENT system symptoms on review. Reliability poor. MENTAL STATUS EXAM: Oriented to herself. Insight, judgment, recent and remote memory, attention, concentration, fund of knowledge poor, consistent with her diagnosis mentioned in my initial note. PLAN: Continue psychotropics from initial note. MAN Bridget RASMUSSEN MD DR: CONCETTA/hazel JOB#: [id number] / [id number]
--- NOTE | 2018-02-14 01:05 | PN ---
DATE: 02/11/2018 This late entry 02/11/2018 covers elements not covered in my initial note 02/11/2018. SUBJECTIVE: I met with the patient in the evening. She was staffed at a treatment team meeting earlier in the day. Appetite 90%, sleeping about 6-1/2 hours, is quite disorganized, compliant with medications, somewhat calmer, at times resistive to medications, but takes it ultimately. REVIEW OF SYSTEMS: No CV, , pulmonary, eye, ENT system symptoms on review. Reliability poor. MENTAL STATUS EXAM: Oriented to herself. Insight, judgment, recent and remote memory, attention, concentration, fund of knowledge poor, consistent with her diagnosis mentioned in my initial note. PLAN: Continue current psychotropics. Adjust further as clinically indicated. MAN Bridget RASMUSSEN MD DR: CONCETTA/hazel JOB#: [id number] / [id number]
[2018-02-14 06:04] VITALS: BP 147/93
[2018-02-14] MEDS: LEVOTHYROXINE 75 MCG TABLET PO SCH (06:20)
[2018-02-14] MEDS: MAGNESIUM OXIDE 400 MG TABLET PO SCH (07:42)
[2018-02-14] MEDS: OMEGA-3 FATTY ACIDS/FISH OIL 1,000 MG CAPSULE. PO SCH (07:42)
[2018-02-14] MEDS: POTASSIUM CHLORIDE 20 MEQ TABLET.ER. PO SCH (07:42)
[2018-02-14] MEDS: CARVEDILOL 3.125 MG TABLET PO SCH (07:42)
[2018-02-14] MEDS: CYANOCOBALAMIN (VITAMIN B-12) 1,000 MCG TABLET. PO SCH (07:42)
[2018-02-14] MEDS: LACTOBACILLUS RHAMNOSUS GG 1 CAPSULE. PO SCH (07:42)
[2018-02-14] MEDS: FUROSEMIDE 20 MG TABLET PO SCH (07:42)
[2018-02-14] MEDS: QUEtiapine 50 MG TABLET. PO SCH ×3 (07:42→19:14)
[2018-02-14] MEDS: AMIODARONE HCL 200 MG TABLET PO SCH (07:43)
[2018-02-14] MEDS: SERTRALINE 25 MG TABLET. PO SCH (07:43)
[2018-02-14 16:05] VITALS: BP 110/56
[2018-02-14] MEDS: MIRTAZAPINE 15 MG TABLET PO SCH (19:14)
[2018-02-14] MEDS: traZODone 50 MG TABLET. PO SCH (19:14)
--- NOTE | 2018-02-14 22:53 | PDOC ---
Exam Note: Aakash Note: Please also refer to the separate dictated note~for this date of service dictated separately.~Patient seen individually. Discussed the patient with Nursing staff reviewed the chart.~Reviewed interim history and current functioning. Reviewed vital signs,~Labs/ Radiology~and current medications noted below. Continue current treatment with the changes noted in the dictated addendum note Assessment: Vital Signs: Vital Signs Date Time Temp Pulse Resp B/P (MAP) Pulse Ox O2 Delivery O2 Flow Rate FiO2 02/14/18 16:05 97.3 74 16 110/56 (74) 96 02/09/18 16:26 Room Air I&O Intake and Output 02/14/18 07:00 Intake Total 480 ml Balance 480 ml Intake Oral 480 ml Current Medications: Meds: Current Medications Acetaminophen (Tylenol) 650 mg PRN Q6HRS PRN PO PAIN / TEMP; Start 01/22/18 at 21:30; Stop 01/22/18 at 22:23; Status DC Multi-Ingredient Ointment (Analgesic [place]) 1 morenita PRN QID PRN TP MUSCLE PAIN Last administered on 02/06/18at 00:30; Start 01/22/18 at 21:30 Al Hydroxide/Mg Hydroxide (Mylanta Plus Xs) 15 ml PRN AFTMEALHC PRN PO DYSPEPSIA; Start 01/22/18 at 21:30 Magnesium Hydroxide (Milk Of Magnesia) 2,400 mg PRN QHS PRN PO CONSTIPATION; Start 01/22/18 at 21:30 Lorazepam (Ativan) 0.5 mg QHS PO Last administered on 02/04/18at 19:47; Start at 22:30; Stop 02/05/18 at 10:55; Status DC Lorazepam (Ativan) 0.5 mg PRN Q4HRS PRN PO ANXIETY / AGITATION Last administered on 02/07/18at 22:11; Start 01/22/18 at 22:30 Quetiapine Fumarate (SEROquel) 50 mg TID PO Last administered on 02/14/18at 19: 14; Start 01/22/18 at 22:30 Acetaminophen (Tylenol) 650 mg PRN Q4HRS PRN PO PAIN; Start 01/22/18 at 22:15; Stop 01/22/18 at 22:24; Status DC Aspirin ([place] Aspirin) 325 mg DAILY PO Last administered on 02/05/18 09:21; Start 01/23/18 at 09:00; Stop 02/05/18 at 18:03; Status DC Vitamin D (Vitamin D3) 1,000 unit QMWF PO Last administered on 01/26/18 10:44; Start 01/23/18 at 16:00; Stop 01/27/18 at 13:40; Status DC Cyanocobalamin (Vitamin B-12) 1,000 mcg DAILY PO Last administered on 07:42; Start 01/23/18 at 09:00 Diltiazem HCl (Cardizem 24hr Cd) 120 mg DAILY PO Last administered on 01/24/18 07:57; Start 01/23/18 at 09:00; Stop 01/25/18 at 15:15; Status DC Furosemide (Lasix) 20 mg DAILY PO Last administered on 02/14/18 07:42; Start 01/23/18 at 09:00 Ipratropium [place] (Atrovent) 0.2 mg PRN Q4HRS PRN IH SHORTNESS OF BREATH; Start 01/22/18 at 22:15 Albuterol/ Ipratropium (Duoneb) 3 ml PRN QID PRN NEB SHORTNESS OF BREATH; Start 01/22/18 at 22:15 Fish Oil (Fish Oil) 1,000 mg DAILY PO Last administered on 02/14/18 07:42; Start 01/23/18 at 09:00 Potassium Chloride (Klor-Con) 20 meq DAILY PO Last administered on 02/14/18 07 :42; Start 01/23/18 at 09:00 Amiodarone HCl (Cordarone) 200 mg DAILY PO Last administered on 02/14/18 07:43 ; Start 01/23/18 at 09:00 Carvedilol (Coreg) 3.125 mg DAILY PO Last administered on 02/14/18 07:42; Start 01/23/18 at 09:00 Cetirizine HCl (ZyrTEC) 10 mg PRN DAILY PRN PO ALLERGIES Last administered on at 08:45; Start 01/23/18 at 09:00 Non-Formulary Medication (Garlic ) 2,000 mg DAILY PO ; Start 01/23/18 at 09:00; Stop 01/23/18 at 09:00; Status DC Lactobacillus Rhamnosus (Culturelle) 1 cap DAILY PO Last administered on at 07:42; Start 01/23/18 at 09:00 Levothyroxine Sodium (Synthroid) 50 mcg DAILY07 PO Last administered on at 05:46; Start 01/23/18 at 07:00; Stop 01/23/18 at 14:03; Status DC Magnesium Oxide (Magnesium Oxide) 400 mg DAILY PO Last administered on at 07:42; Start 01/23/18 at 09:00 Naproxen (Naprosyn) 500 mg DAILY PO Last administered on 02/05/18at 09:21; Start 01/23/18 at 09:00; Stop 02/05/18 at 18:03; Status DC Polyethylene Glycol (miraLAX) 17 gm PRN DAILY PRN PO CONSTIPATION; Start at 09:00 Artificial Tears (Refresh Classic) 1 drop PRN DAILY PRN OU DRY EYE; Start 01/22 at 22:45 Acetaminophen (Tylenol) 650 mg PRN Q4HRS PRN PO PAIN / TEMP Last administered on 02/06/18at 00:30; Start 01/22/18 at 22:30 Levothyroxine Sodium (Synthroid) 50 mcg DAILY06 PO Last administered on at 06:04; Start 01/24/18 at 06:00; Stop 01/25/18 at 15:10; Status DC Sertraline HCl (Zoloft) 25 mg DAILY PO Last administered on 01/26/18at 10:44; Start 01/24/18 at 09:00; Stop 01/27/18 at 08:59; Status DC Sertraline HCl (Zoloft) 50 mg DAILY PO Last administered on 02/09/18at 07:42; Start 01/27/18 at 09:00; Stop 02/09/18 at 18:40; Status DC Olanzapine (ZyPREXA ZYDIS) 2.5 mg PRN Q2HR PRN PO PSYCHOSIS Last administered on 02/14/18at 13:05; Start 01/24/18 at 22:00 Levothyroxine Sodium (Synthroid) 75 mcg DAILY06 PO Last administered on 06:20; Start 01/26/18 at 06:00 Fosfomycin Tromethamine (Monurol) 3 gm 1X ONCE PO Last administered on 18:03; Start 01/25/18 at 16:00; Stop 01/25/18 at 16:01; Status DC Mirtazapine (Remeron) 7.5 mg QHS PO Last administered on 01/26/18 20:06; Start 01/26/18 at 21:00; Stop 01/27/18 at 18:49; Status DC Naproxen (Naprosyn) 500 mg 1X ONCE PO Last administered on 01/27/18at 08:10; Start 01/27/18 at 08:30; Stop 01/27/18 at 08:32; Status DC Vitamin D (Vitamin D3) 50,000 unit WEEKLY PO Last administered on 02/10/18at 08: 05; Start 01/27/18 at 13:30 Mirtazapine (Remeron) 15 mg QHS PO Last administered on 02/14/18at 19:14; Start 01/27/18 at 21:00 Trazodone HCl (Desyrel) 50 mg PRN QHS PRN PO INSOMNIA, MAY REPEAT X1 Last administered on 01/31/18at 20:04; Start 01/28/18 at 18:30; Stop 02/01/18 at 20:18; Status DC Trazodone HCl (Desyrel) 50 mg HS PO Last administered on 02/14/18at 19:14; Start 02/01/18 at 21:00 Trazodone HCl (Desyrel) 50 mg PRN QHS PRN PO INSOMNIA Last administered on 02/07at 22:11; Start 02/01/18 at 20:30 Lorazepam (Ativan) 0.25 mg QHS PO Last administered on 02/06/18at 19:48; Start 02/05/18 at 21:00; Stop 02/06/18 at 21:02; Status DC Sertraline HCl (Zoloft) 75 mg DAILY PO Last administered on 02/14/18 07:43; Start 02/10/18 at 09:00 Active Scripts Active Reported Vitamin D3 (Cholecalciferol (Vitamin D3)) 1,000 Unit Tablet 1,000 Unit PO EVERY FRI,WED,FRI Vitamin B-12 (Cyanocobalamin (Vitamin B-12)) 1,000 Mcg Tablet 1,000 Mcg PO DAILY Tylenol (Acetaminophen) 325 Mg Tablet 650 Mg PO PRN Q4HRS PRN Systane 0.3-0.4% Eye Drops (Propylene Glycol/Peg 400) 15 Ml Drops 1 Drop OU PRN PRN Synthroid (Levothyroxine Sodium) 50 Mcg Tablet 50 Mcg PO DAILYAC Seroquel (Quetiapine Fumarate) 50 Mg Tablet 50 Mg PO TID Klor-Con M20 (Potassium Chloride) 20 Meq Tab.er.prt 20 Meq PO DAILY Naprosyn (Naproxen) 500 Mg Tablet 500 Mg PO DAILY Miralax (Polyethylene Glycol 3350) 17 Gm Powd.pack 17 Gm PO PRN Q24HRS PRN Magnesium Oxide 400 Mg Tablet 400 Mg PO DAILY Lasix (Furosemide) 20 Mg Tablet 20 Mg PO DAILY Ipratropium [place] 0.2 Mg/1 Ml Solution 0.2 Mg IH PRN Q4HRS PRN Garlic 1,000 Mg Capsule 2,000 Mg PO DAILY Fish Oil 1,000 Mg Capsule ([place]-3 Fatty Acids/Fish Oil) 1 Each Capsule 1 Each PO DAILY Duoneb 0.5-3(2.5) Mg/3 Ml (Albuterol/Ipratropium) 3 Ml Ampul.neb 3 Ml NEB PRN QID PRN Diltiazem 24HR Cd (Diltiazem Hcl) 120 Mg Cap.er.24h 120 Mg PO DAILY Culturelle (Lactobacillus Rhamnosus Gg) 1 Each Capsule 1 Each PO DAILY Carvedilol 3.125 Mg Tablet 3.125 Mg PO DAILY Ativan (Lorazepam) 0.5 Mg Tablet 0.5 Mg PO PRN Q4HRS PRN Ativan (Lorazepam) 0.5 Mg Tablet 0.5 Mg PO HS Aspirin 325 Mg Tablet 325 Mg PO DAILY Amiodarone Hcl 200 Mg Tablet 200 Mg PO DAILY Janiya Allergy (Fexofenadine Hcl) 180 Mg Tablet 180 Mg PO PRN DAILY PRN I have reviewed the current psychotropics carefully including drug interactions. Risk benefit ratio favors no change other than as noted in my dictated progress note. Diagnosis: Problems: (1) Anxiety disorder (2) Dementia in Alzheimer's disease with delusions (3) Dementia in Alzheimer's disease with depression (4) Dementia, vascular, with delusions (5) Dementia, vascular, with depression (6) Impulse control disorder SANDER RASMUSSEN MD Feb 14, 2018 22:53
[2018-02-14] MEDS: LORazepam 0.5 MG TABLET PO PRN (23:32)
[2018-02-14] MEDS: traZODone 50 MG TABLET. PO PRN (23:32)
[2018-02-15] MEDS: LEVOTHYROXINE 75 MCG TABLET PO SCH (06:01)
[2018-02-15 06:41] VITALS: BP 129/57
[2018-02-15] MEDS: AMIODARONE HCL 200 MG TABLET PO SCH (07:33)
[2018-02-15] MEDS: MAGNESIUM OXIDE 400 MG TABLET PO SCH (07:33)
[2018-02-15] MEDS: CYANOCOBALAMIN (VITAMIN B-12) 1,000 MCG TABLET. PO SCH (07:33)
[2018-02-15] MEDS: OMEGA-3 FATTY ACIDS/FISH OIL 1,000 MG CAPSULE. PO SCH (07:34)
[2018-02-15] MEDS: CARVEDILOL 3.125 MG TABLET PO SCH (07:34)
[2018-02-15] MEDS: QUEtiapine 50 MG TABLET. PO SCH ×3 (07:34→20:02)
[2018-02-15] MEDS: POTASSIUM CHLORIDE 20 MEQ TABLET.ER. PO SCH (07:34)
[2018-02-15] MEDS: LACTOBACILLUS RHAMNOSUS GG 1 CAPSULE. PO SCH (07:34)
[2018-02-15] MEDS: FUROSEMIDE 20 MG TABLET PO SCH (07:34)
[2018-02-15] MEDS: SERTRALINE 25 MG TABLET. PO SCH (07:35)
[2018-02-15 16:21] VITALS: BP 147/64
[2018-02-15] MEDS: MIRTAZAPINE 15 MG TABLET PO SCH (20:02)
[2018-02-15] MEDS: traZODone 50 MG TABLET. PO SCH (20:02)
--- NOTE | 2018-02-15 21:02 | PDOC ---
Exam Note: Aakash Note: Please also refer to the separate dictated note~for this date of service dictated separately.~Patient seen individually. Discussed the patient with Nursing staff reviewed the chart.~Reviewed interim history and current functioning. Reviewed vital signs,~Labs/ Radiology~and current medications noted below. Continue current treatment with the changes noted in the dictated addendum note Assessment: Vital Signs: Vital Signs Date Time Temp Pulse Resp B/P (MAP) Pulse Ox O2 Delivery O2 Flow Rate FiO2 02/15/18 16:21 97.3 68 18 147/64 (91) 94 02/09/18 16:26 Room Air I&O Intake and Output 02/15/18 07:00 Intake Total 840 ml Balance 840 ml Intake Oral 840 ml # Voids 1 Current Medications: Meds: Current Medications Acetaminophen (Tylenol) 650 mg PRN Q6HRS PRN PO PAIN / TEMP; Start 01/22/18 at 21:30; Stop 01/22/18 at 22:23; Status DC Multi-Ingredient Ointment (Analgesic [place]) 1 morenita PRN QID PRN TP MUSCLE PAIN Last administered on 02/06/18at 00:30; Start 01/22/18 at 21:30 Al Hydroxide/Mg Hydroxide (Mylanta Plus Xs) 15 ml PRN AFTMEALHC PRN PO DYSPEPSIA; Start 01/22/18 at 21:30 Magnesium Hydroxide (Milk Of Magnesia) 2,400 mg PRN QHS PRN PO CONSTIPATION; Start 01/22/18 at 21:30 Lorazepam (Ativan) 0.5 mg QHS PO Last administered on 02/04/18at 19:47; Start at 22:30; Stop 02/05/18 at 10:55; Status DC Lorazepam (Ativan) 0.5 mg PRN Q4HRS PRN PO ANXIETY / AGITATION Last administered on 02/14/18at 23:32; Start 01/22/18 at 22:30 Quetiapine Fumarate (SEROquel) 50 mg TID PO Last administered on 02/15/18at 20: 02; Start 01/22/18 at 22:30 Acetaminophen (Tylenol) 650 mg PRN Q4HRS PRN PO PAIN; Start 01/22/18 at 22:15; Stop 01/22/18 at 22:24; Status DC Aspirin (Galina Aspirin) 325 mg DAILY PO Last administered on 02/05/18 09:21; Start 01/23/18 at 09:00; Stop 02/05/18 at 18:03; Status DC Vitamin D (Vitamin D3) 1,000 unit QMWF PO Last administered on 01/26/18 10:44; Start 01/23/18 at 16:00; Stop 01/27/18 at 13:40; Status DC Cyanocobalamin (Vitamin B-12) 1,000 mcg DAILY PO Last administered on 07:33; Start 01/23/18 at 09:00 Diltiazem HCl (Cardizem 24hr Cd) 120 mg DAILY PO Last administered on 01/24/18 07:57; Start 01/23/18 at 09:00; Stop 01/25/18 at 15:15; Status DC Furosemide (Lasix) 20 mg DAILY PO Last administered on 02/15/18 07:34; Start 01/23/18 at 09:00 Ipratropium [place] (Atrovent) 0.2 mg PRN Q4HRS PRN IH SHORTNESS OF BREATH; Start 01/22/18 at 22:15 Albuterol/ Ipratropium (Duoneb) 3 ml PRN QID PRN NEB SHORTNESS OF BREATH; Start 01/22/18 at 22:15 Fish Oil (Fish Oil) 1,000 mg DAILY PO Last administered on 02/15/18 07:34; Start 01/23/18 at 09:00 Potassium Chloride (Klor-Con) 20 meq DAILY PO Last administered on 02/15/18 07 :34; Start 01/23/18 at 09:00 Amiodarone HCl (Cordarone) 200 mg DAILY PO Last administered on 02/15/18 07:33 ; Start 01/23/18 at 09:00 Carvedilol (Coreg) 3.125 mg DAILY PO Last administered on 02/15/18 07:34; Start 01/23/18 at 09:00 Cetirizine HCl (ZyrTEC) 10 mg PRN DAILY PRN PO ALLERGIES Last administered on at 08:45; Start 01/23/18 at 09:00 Non-Formulary Medication (Garlic ) 2,000 mg DAILY PO ; Start 01/23/18 at 09:00; Stop 01/23/18 at 09:00; Status DC Lactobacillus Rhamnosus (Culturelle) 1 cap DAILY PO Last administered on at 07:34; Start 01/23/18 at 09:00 Levothyroxine Sodium (Synthroid) 50 mcg DAILY07 PO Last administered on at 05:46; Start 01/23/18 at 07:00; Stop 01/23/18 at 14:03; Status DC Magnesium Oxide (Magnesium Oxide) 400 mg DAILY PO Last administered on at 07:33; Start 01/23/18 at 09:00 Naproxen (Naprosyn) 500 mg DAILY PO Last administered on 02/05/18at 09:21; Start 01/23/18 at 09:00; Stop 02/05/18 at 18:03; Status DC Polyethylene Glycol (miraLAX) 17 gm PRN DAILY PRN PO CONSTIPATION; Start at 09:00 Artificial Tears (Refresh Classic) 1 drop PRN DAILY PRN OU DRY EYE; Start 01/22 at 22:45 Acetaminophen (Tylenol) 650 mg PRN Q4HRS PRN PO PAIN / TEMP Last administered on 02/06/18at 00:30; Start 01/22/18 at 22:30 Levothyroxine Sodium (Synthroid) 50 mcg DAILY06 PO Last administered on at 06:04; Start 01/24/18 at 06:00; Stop 01/25/18 at 15:10; Status DC Sertraline HCl (Zoloft) 25 mg DAILY PO Last administered on 01/26/18at 10:44; Start 01/24/18 at 09:00; Stop 01/27/18 at 08:59; Status DC Sertraline HCl (Zoloft) 50 mg DAILY PO Last administered on 02/09/18at 07:42; Start 01/27/18 at 09:00; Stop 02/09/18 at 18:40; Status DC Olanzapine (ZyPREXA ZYDIS) 2.5 mg PRN Q2HR PRN PO PSYCHOSIS Last administered on 02/14/18at 13:05; Start 01/24/18 at 22:00 Levothyroxine Sodium (Synthroid) 75 mcg DAILY06 PO Last administered on 06:01; Start 01/26/18 at 06:00 Fosfomycin Tromethamine (Monurol) 3 gm 1X ONCE PO Last administered on at 18:03; Start 01/25/18 at 16:00; Stop 01/25/18 at 16:01; Status DC Mirtazapine (Remeron) 7.5 mg QHS PO Last administered on 01/26/18at 20:06; Start 01/26/18 at 21:00; Stop 01/27/18 at 18:49; Status DC Naproxen (Naprosyn) 500 mg 1X ONCE PO Last administered on 01/27/18at 08:10; Start 01/27/18 at 08:30; Stop 01/27/18 at 08:32; Status DC Vitamin D (Vitamin D3) 50,000 unit WEEKLY PO Last administered on 02/10/18at 08: 05; Start 01/27/18 at 13:30 Mirtazapine (Remeron) 15 mg QHS PO Last administered on 02/15/18at 20:02; Start 01/27/18 at 21:00 Trazodone HCl (Desyrel) 50 mg PRN QHS PRN PO INSOMNIA, MAY REPEAT X1 Last administered on 01/31/18at 20:04; Start 01/28/18 at 18:30; Stop 02/01/18 at 20:18; Status DC Trazodone HCl (Desyrel) 50 mg HS PO Last administered on 02/15/18at 20:02; Start 02/01/18 at 21:00 Trazodone HCl (Desyrel) 50 mg PRN QHS PRN PO INSOMNIA Last administered on 02/14at 23:32; Start 02/01/18 at 20:30 Lorazepam (Ativan) 0.25 mg QHS PO Last administered on 02/06/18at 19:48; Start 02/05/18 at 21:00; Stop 02/06/18 at 21:02; Status DC Sertraline HCl (Zoloft) 75 mg DAILY PO Last administered on 02/15/18at 07:35; Start 02/10/18 at 09:00 Active Scripts Active Reported Vitamin D3 (Cholecalciferol (Vitamin D3)) 1,000 Unit Tablet 1,000 Unit PO EVERY FRI,WED,FRI Vitamin B-12 (Cyanocobalamin (Vitamin B-12)) 1,000 Mcg Tablet 1,000 Mcg PO DAILY Tylenol (Acetaminophen) 325 Mg Tablet 650 Mg PO PRN Q4HRS PRN Systane 0.3-0.4% Eye Drops (Propylene Glycol/Peg 400) 15 Ml Drops 1 Drop OU PRN PRN Synthroid (Levothyroxine Sodium) 50 Mcg Tablet 50 Mcg PO DAILYAC Seroquel (Quetiapine Fumarate) 50 Mg Tablet 50 Mg PO TID Klor-Con M20 (Potassium Chloride) 20 Meq Tab.er.prt 20 Meq PO DAILY Naprosyn (Naproxen) 500 Mg Tablet 500 Mg PO DAILY Miralax (Polyethylene Glycol 3350) 17 Gm Powd.pack 17 Gm PO PRN Q24HRS PRN Magnesium Oxide 400 Mg Tablet 400 Mg PO DAILY Lasix (Furosemide) 20 Mg Tablet 20 Mg PO DAILY Ipratropium [place] 0.2 Mg/1 Ml Solution 0.2 Mg IH PRN Q4HRS PRN Garlic 1,000 Mg Capsule 2,000 Mg PO DAILY Fish Oil 1,000 Mg Capsule ([place]-3 Fatty Acids/Fish Oil) 1 Each Capsule 1 Each PO DAILY Duoneb 0.5-3(2.5) Mg/3 Ml (Albuterol/Ipratropium) 3 Ml Ampul.neb 3 Ml NEB PRN QID PRN Diltiazem 24HR Cd (Diltiazem Hcl) 120 Mg Cap.er.24h 120 Mg PO DAILY Culturelle (Lactobacillus Rhamnosus Gg) 1 Each Capsule 1 Each PO DAILY Carvedilol 3.125 Mg Tablet 3.125 Mg PO DAILY Ativan (Lorazepam) 0.5 Mg Tablet 0.5 Mg PO PRN Q4HRS PRN Ativan (Lorazepam) 0.5 Mg Tablet 0.5 Mg PO HS Aspirin 325 Mg Tablet 325 Mg PO DAILY Amiodarone Hcl 200 Mg Tablet 200 Mg PO DAILY Janiya Allergy (Fexofenadine Hcl) 180 Mg Tablet 180 Mg PO PRN DAILY PRN I have reviewed the current psychotropics carefully including drug interactions. Risk benefit ratio favors no change other than as noted in my dictated progress note. Diagnosis: Problems: (1) Anxiety disorder (2) Dementia in Alzheimer's disease with delusions (3) Dementia in Alzheimer's disease with depression (4) Dementia, vascular, with delusions (5) Dementia, vascular, with depression (6) Impulse control disorder SANDER RASMUSSEN MD Feb 15, 2018 21:02
--- NOTE | 2018-02-15 22:35 | PN ---
DATE: 02/13/2018 This is a late entry for 02/13/2018 covers elements not covered in my initial note. SUBJECTIVE: I met with the patient in the evening. The patient states slept 6 hours previous evening, remains somewhat delusional, anxious, believes she is signing papers for her new apartment. 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 At times, she has been anxious, loud, somewhat paranoid, but less so than before. REVIEW OF SYSTEMS: No CV, , pulmonary, eye, ENT system symptoms on review. Reliability poor. MENTAL STATUS EXAM: Oriented to herself. Insight, judgment, recent and remote memory, attention, concentration, fund of knowledge poor, consistent with her diagnosis mentioned in my initial note. PLAN: Continue psychotropics from initial note. Adjust as clinically indicated. MAN Bridget RASMUSSEN MD DR: CONCETTA/hazel JOB#: [id number] / [id number]
--- NOTE | 2018-02-15 23:04 | PN ---
DATE: 02/14/2018 This is a late entry for 02/14/2018 covers elements not covered in my initial note. SUBJECTIVE: I met with the patient in the evening. Overall, the patient remains confused, somewhat paranoid. REVIEW OF SYSTEMS: No CV, , pulmonary, eye, ENT system symptoms on review. She believes she has to take a flight. MENTAL STATUS EXAM: Oriented to herself. Insight, judgment, recent and remote memory, attention, concentration, fund of knowledge poor, consistent with her diagnosis mentioned in my initial note. PLAN: Continue current psychotropics. Adjust further as clinically indicated. MAN Bridget RASMUSSEN MD DR: CONCETTA/hazel JOB#: [id number] / [id number]
--- NOTE | 2018-02-16 04:39 | PN ---
DATE: 02/15/2018 This is a late entry covers the elements not covered in my initial note, 02/15/2018. SUBJECTIVE: The patient slept 4-1/4 hours previous evening. REVIEW OF SYSTEMS: No CV, , pulmonary, eye, ENT system symptoms on review. MENTAL STATUS EXAM: Oriented to herself. Insight, judgment, recent and remote memory, attention, concentration, fund of knowledge poor, consistent with her diagnosis from initial note. She has been delusional, but pleasant. States she is going to take a flight, made an itinerary for her flight, she seemed calmer with this. IMPRESSION: Unchanged from initial note. PLAN: Continue psychotropics from initial note. MAN Bridget RASMUSSEN MD DR: CONCETTA/hazel JOB#: [id number] / [id number]
[2018-02-16] MEDS ORDERED: CETI10TA22 PO (05:52)
[2018-02-16] MEDS ORDERED: MIRT15TA3 PO (05:57)
[2018-02-16] MEDS ORDERED: MAGN2400 PO (05:58)
[2018-02-16] MEDS ORDERED: OLAN5TAB9 PO (05:58)
[2018-02-16] MEDS ORDERED: METH29OI TP (05:59)
[2018-02-16] MEDS ORDERED: SERT50TA PO (06:01)
[2018-02-16] MEDS ORDERED: TRAZ50TA15 PO ×2 (06:02)
[2018-02-16] MEDS ORDERED: LEVO75TA5 PO (06:03)
[2018-02-16] MEDS ORDERED: CHOL500050 PO (06:03)
[2018-02-16 06:11] VITALS: BP 150/70
[2018-02-16 06:12] VITALS: BP_SYST 129; BP_SYST 154; BP_DIAS 47; BP_DIAS 73
[2018-02-16] MEDS: FUROSEMIDE 20 MG TABLET PO SCH (10:43)
[2018-02-16] MEDS: OMEGA-3 FATTY ACIDS/FISH OIL 1,000 MG CAPSULE. PO SCH (10:43)
[2018-02-16] MEDS: SERTRALINE 25 MG TABLET. PO SCH (10:43)
[2018-02-16] MEDS: CYANOCOBALAMIN (VITAMIN B-12) 1,000 MCG TABLET. PO SCH (10:43)
[2018-02-16] MEDS: POTASSIUM CHLORIDE 20 MEQ TABLET.ER. PO SCH (10:43)
[2018-02-16] MEDS: CARVEDILOL 3.125 MG TABLET PO SCH (10:44)
[2018-02-16] MEDS: QUEtiapine 50 MG TABLET. PO SCH ×3 (10:44→20:33)
[2018-02-16] MEDS: LEVOTHYROXINE 75 MCG TABLET PO SCH (10:45)
[2018-02-16] MEDS: AMIODARONE HCL 200 MG TABLET PO SCH (10:45)
[2018-02-16] MEDS: LACTOBACILLUS RHAMNOSUS GG 1 CAPSULE. PO SCH (10:45)
[2018-02-16] MEDS: MAGNESIUM OXIDE 400 MG TABLET PO SCH (10:45)
[2018-02-16 11:30] VITALS: BP 133/57
[2018-02-16 11:32] VITALS: BP 142/72
[2018-02-16 11:36] VITALS: BP 150/62
[2018-02-16 16:31] VITALS: BP 145/56
[2018-02-16] MEDS: traZODone 50 MG TABLET. PO SCH (20:33)
[2018-02-16] MEDS: MIRTAZAPINE 15 MG TABLET PO SCH (20:33)
[2018-02-16] MEDS: ACETAMINOPHEN 325 MG TABLET PO PRN (20:34)
--- NOTE | 2018-02-16 20:58 | PDOC ---
Exam Note: Aakash Note: Please also refer to the separate dictated note~for this date of service dictated separately.~Patient seen individually. Discussed the patient with Nursing staff reviewed the chart.~Reviewed interim history and current functioning. Reviewed vital signs,~Labs/ Radiology~and current medications noted below. Continue current treatment with the changes noted in the dictated addendum note Assessment: Vital Signs: Vital Signs Date Time Temp Pulse Resp B/P (MAP) Pulse Ox O2 Delivery O2 Flow Rate FiO2 02/16/18 16:31 97.8 55 17 145/56 (85) 96 Room Air I&O Intake and Output 02/16/18 07:01 Intake Total 1080 ml Balance 1080 ml Intake Oral 1080 ml Current Medications: Meds: Current Medications Acetaminophen (Tylenol) 650 mg PRN Q6HRS PRN PO PAIN / TEMP; Start 01/22/18 at 21:30; Stop 01/22/18 at 22:23; Status DC Multi-Ingredient Ointment (Analgesic [place]) 1 jony PRN QID PRN TP MUSCLE PAIN Last administered on 02/06/18at 00:30; Start 01/22/18 at 21:30 Al Hydroxide/Mg Hydroxide (Mylanta Plus Xs) 15 ml PRN AFTMEALHC PRN PO DYSPEPSIA; Start 01/22/18 at 21:30 Magnesium Hydroxide (Milk Of Magnesia) 2,400 mg PRN QHS PRN PO CONSTIPATION; Start 01/22/18 at 21:30 Lorazepam (Ativan) 0.5 mg QHS PO Last administered on 02/04/18at 19:47; Start at 22:30; Stop 02/05/18 at 10:55; Status DC Lorazepam (Ativan) 0.5 mg PRN Q4HRS PRN PO ANXIETY / AGITATION Last administered on 02/14/18at 23:32; Start 01/22/18 at 22:30 Quetiapine Fumarate (SEROquel) 50 mg TID PO Last administered on 02/16/18at 20: 33; Start 01/22/18 at 22:30 Acetaminophen (Tylenol) 650 mg PRN Q4HRS PRN PO PAIN; Start 01/22/18 at 22:15; Stop 01/22/18 at 22:24; Status DC Aspirin (Galina Aspirin) 325 mg DAILY PO Last administered on 02/05/18 09:21; Start 01/23/18 at 09:00; Stop 02/05/18 at 18:03; Status DC Vitamin D (Vitamin D3) 1,000 unit QMWF PO Last administered on 01/26/18 10:44; Start 01/23/18 at 16:00; Stop 01/27/18 at 13:40; Status DC Cyanocobalamin (Vitamin B-12) 1,000 mcg DAILY PO Last administered on 10:43; Start 01/23/18 at 09:00 Diltiazem HCl (Cardizem 24hr Cd) 120 mg DAILY PO Last administered on 01/24/18 07:57; Start 01/23/18 at 09:00; Stop 01/25/18 at 15:15; Status DC Furosemide (Lasix) 20 mg DAILY PO Last administered on 02/16/18 10:43; Start 01/23/18 at 09:00 Ipratropium [place] (Atrovent) 0.2 mg PRN Q4HRS PRN IH SHORTNESS OF BREATH; Start 01/22/18 at 22:15 Albuterol/ Ipratropium (Duoneb) 3 ml PRN QID PRN NEB SHORTNESS OF BREATH; Start 01/22/18 at 22:15 Fish Oil (Fish Oil) 1,000 mg DAILY PO Last administered on 02/16/18 10:43; Start 01/23/18 at 09:00 Potassium Chloride (Klor-Con) 20 meq DAILY PO Last administered on 02/16/18 10 :43; Start 01/23/18 at 09:00 Amiodarone HCl (Cordarone) 200 mg DAILY PO Last administered on 02/16/18 10:45 ; Start 01/23/18 at 09:00 Carvedilol (Coreg) 3.125 mg DAILY PO Last administered on 02/16/18 10:44; Start 01/23/18 at 09:00 Cetirizine HCl (ZyrTEC) 10 mg PRN DAILY PRN PO ALLERGIES Last administered on 08:45; Start 01/23/18 at 09:00 Non-Formulary Medication (Garlic ) 2,000 mg DAILY PO ; Start 01/23/18 at 09:00; Stop 01/23/18 at 09:00; Status DC Lactobacillus Rhamnosus (Culturelle) 1 cap DAILY PO Last administered on at 10:45; Start 01/23/18 at 09:00 Levothyroxine Sodium (Synthroid) 50 mcg DAILY07 PO Last administered on at 05:46; Start 01/23/18 at 07:00; Stop 01/23/18 at 14:03; Status DC Magnesium Oxide (Magnesium Oxide) 400 mg DAILY PO Last administered on at 10:45; Start 01/23/18 at 09:00 Naproxen (Naprosyn) 500 mg DAILY PO Last administered on 02/05/18at 09:21; Start 01/23/18 at 09:00; Stop 02/05/18 at 18:03; Status DC Polyethylene Glycol (miraLAX) 17 gm PRN DAILY PRN PO CONSTIPATION; Start at 09:00 Artificial Tears (Refresh Classic) 1 drop PRN DAILY PRN OU DRY EYE; Start 01/22 at 22:45 Acetaminophen (Tylenol) 650 mg PRN Q4HRS PRN PO PAIN / TEMP Last administered on 02/16/18at 20:34; Start 01/22/18 at 22:30 Levothyroxine Sodium (Synthroid) 50 mcg DAILY06 PO Last administered on at 06:04; Start 01/24/18 at 06:00; Stop 01/25/18 at 15:10; Status DC Sertraline HCl (Zoloft) 25 mg DAILY PO Last administered on 01/26/18at 10:44; Start 01/24/18 at 09:00; Stop 01/27/18 at 08:59; Status DC Sertraline HCl (Zoloft) 50 mg DAILY PO Last administered on 02/09/18at 07:42; Start 01/27/18 at 09:00; Stop 02/09/18 at 18:40; Status DC Olanzapine (ZyPREXA ZYDIS) 2.5 mg PRN Q2HR PRN PO PSYCHOSIS Last administered on 02/16/18 15:37; Start 01/24/18 at 22:00 Levothyroxine Sodium (Synthroid) 75 mcg DAILY06 PO Last administered on at 10:45; Start 01/26/18 at 06:00 Fosfomycin Tromethamine (Monurol) 3 gm 1X ONCE PO Last administered on at 18:03; Start 01/25/18 at 16:00; Stop 01/25/18 at 16:01; Status DC Mirtazapine (Remeron) 7.5 mg QHS PO Last administered on 01/26/18at 20:06; Start 01/26/18 at 21:00; Stop 01/27/18 at 18:49; Status DC Naproxen (Naprosyn) 500 mg 1X ONCE PO Last administered on 01/27/18at 08:10; Start 01/27/18 at 08:30; Stop 01/27/18 at 08:32; Status DC Vitamin D (Vitamin D3) 50,000 unit WEEKLY PO Last administered on 02/10/18at 08: 05; Start 01/27/18 at 13:30 Mirtazapine (Remeron) 15 mg QHS PO Last administered on 02/16/18at 20:33; Start 01/27/18 at 21:00 Trazodone HCl (Desyrel) 50 mg PRN QHS PRN PO INSOMNIA, MAY REPEAT X1 Last administered on 01/31/18at 20:04; Start 01/28/18 at 18:30; Stop 02/01/18 at 20:18; Status DC Trazodone HCl (Desyrel) 50 mg HS PO Last administered on 02/16/18at 20:33; Start 02/01/18 at 21:00 Trazodone HCl (Desyrel) 50 mg PRN QHS PRN PO INSOMNIA Last administered on 02/14at 23:32; Start 02/01/18 at 20:30 Lorazepam (Ativan) 0.25 mg QHS PO Last administered on 02/06/18at 19:48; Start 02/05/18 at 21:00; Stop 02/06/18 at 21:02; Status DC Sertraline HCl (Zoloft) 75 mg DAILY PO Last administered on 02/16/18at 10:43; Start 02/10/18 at 09:00 Active Scripts Active Reported Vitamin D3 (Cholecalciferol (Vitamin D3)) 50,000 Unit Capsule 50,000 Unit PO WEEKLY Levothyroxine Sodium 75 Mcg Tablet 75 Mcg PO DAILYAC Trazodone Hcl 50 Mg Tablet 50 Mg PO PRN QHS PRN Trazodone Hcl 50 Mg Tablet 50 Mg PO QHS Zoloft (Sertraline Hcl) 50 Mg Tablet 75 Mg PO DAILY Analgesic [place] (Methyl Salicylate/Menthol) 28 Gm Oint...g. 1 Jony TP PRN Milk Of Magnesia (Magnesium Hydroxide) 2,400 Mg/10 Ml Oral.susp 2,400 Mg PO PRN QHS PRN Olanzapine 5 Mg Tablet 2.5 Mg PO PRN Q2HR PRN Mirtazapine 15 Mg Tablet 15 Mg PO QHS Zyrtec (Cetirizine Hcl) 10 Mg Tablet 10 Mg PO DAILY Vitamin B-12 (Cyanocobalamin (Vitamin B-12)) 1,000 Mcg Tablet 1,000 Mcg PO DAILY Tylenol (Acetaminophen) 325 Mg Tablet 650 Mg PO PRN Q4HRS PRN Systane 0.3-0.4% Eye Drops (Propylene Glycol/Peg 400) 15 Ml Drops 1 Drop OU PRN PRN Seroquel (Quetiapine Fumarate) 50 Mg Tablet 50 Mg PO TID Klor-Con M20 (Potassium Chloride) 20 Meq Tab.er.prt 20 Meq PO DAILY Miralax (Polyethylene Glycol 3350) 17 Gm Powd.pack 17 Gm PO PRN Q24HRS PRN Magnesium Oxide 400 Mg Tablet 400 Mg PO DAILY Lasix (Furosemide) 20 Mg Tablet 20 Mg PO DAILY Ipratropium [place] 0.2 Mg/1 Ml Solution 0.2 Mg IH PRN Q4HRS PRN Fish Oil 1,000 Mg Capsule ([place]-3 Fatty Acids/Fish Oil) 1 Each Capsule 1 Each PO DAILY Duoneb 0.5-3(2.5) Mg/3 Ml (Albuterol/Ipratropium) 3 Ml Ampul.neb 3 Ml NEB PRN QID PRN Culturelle (Lactobacillus Rhamnosus Gg) 1 Each Capsule 1 Each PO DAILY Carvedilol 3.125 Mg Tablet 3.125 Mg PO DAILY Ativan (Lorazepam) 0.5 Mg Tablet 0.5 Mg PO PRN Q4HRS PRN Amiodarone Hcl 200 Mg Tablet 200 Mg PO DAILY I have reviewed the current psychotropics carefully including drug interactions. Risk benefit ratio favors no change other than as noted in my dictated progress note. Diagnosis: Problems: (1) Anxiety disorder (2) Dementia in Alzheimer's disease with delusions (3) Dementia in Alzheimer's disease with depression (4) Dementia, vascular, with delusions (5) Dementia, vascular, with depression (6) Impulse control disorder SANDER RASMUSSEN MD Feb 16, 2018 20:58
[2018-02-17] MEDS ORDERED: MAG355OR11 PO (01:49)
[2018-02-17] MEDS ORDERED: POLY1DRO3 OU (01:52)
[2018-02-17] MEDS: LEVOTHYROXINE 75 MCG TABLET PO SCH (04:59)
[2018-02-17 07:25] VITALS: BP 143/69
[2018-02-17] MEDS: FUROSEMIDE 20 MG TABLET PO SCH (09:31)
[2018-02-17] MEDS: POTASSIUM CHLORIDE 20 MEQ TABLET.ER. PO SCH (09:31)
[2018-02-17] MEDS: OMEGA-3 FATTY ACIDS/FISH OIL 1,000 MG CAPSULE. PO SCH (09:32)
[2018-02-17] MEDS: LACTOBACILLUS RHAMNOSUS GG 1 CAPSULE. PO SCH (09:32)
[2018-02-17] MEDS: QUEtiapine 50 MG TABLET. PO SCH (09:32)
[2018-02-17] MEDS: MAGNESIUM OXIDE 400 MG TABLET PO SCH (09:32)
[2018-02-17] MEDS: SERTRALINE 25 MG TABLET. PO SCH (09:32)
[2018-02-17] MEDS: CARVEDILOL 3.125 MG TABLET PO SCH (09:32)
[2018-02-17] MEDS: CYANOCOBALAMIN (VITAMIN B-12) 1,000 MCG TABLET. PO SCH (09:32)
[2018-02-17 09:33] VITALS: BP 143/69
[2018-02-17] MEDS: AMIODARONE HCL 200 MG TABLET PO SCH (09:33)
[2018-02-17] MEDS: CHOLECALCIFEROL (VITAMIN D3) 50,000 UNIT CAPSULE PO SCH (09:33)
--- NOTE | 2018-02-17 18:34 | PDOC ---
Exam Note: Aakash Note: Please also refer to the separate dictated note~for this date of service dictated separately.~Patient seen individually. Discussed the patient with Nursing staff reviewed the chart.~Reviewed interim history and current functioning. Reviewed vital signs,~Labs/ Radiology~and current medications noted below. Continue current treatment with the changes noted in the dictated addendum note Assessment: Vital Signs: Vital Signs Date Time Temp Pulse Resp B/P (MAP) Pulse Ox O2 Delivery O2 Flow Rate FiO2 02/17/18 09:33 63 143/69 02/17/18 07:25 98.7 18 97 02/16/18 16:31 Room Air I&O Intake and Output 02/17/18 07:01 Intake Total 600 ml Balance 600 ml Intake Oral 600 ml # Voids 2 Current Medications: Meds: Current Medications Acetaminophen (Tylenol) 650 mg PRN Q6HRS PRN PO PAIN / TEMP; Start 01/22/18 at 21:30; Stop 01/22/18 at 22:23; Status DC Multi-Ingredient Ointment (Analgesic [place]) 1 jony PRN QID PRN TP MUSCLE PAIN Last administered on 02/06/18at 00:30; Start 01/22/18 at 21:30; Stop 02/17/18 at 11:30; Status DC Al Hydroxide/Mg Hydroxide (Mylanta Plus Xs) 15 ml PRN AFTMEALHC PRN PO DYSPEPSIA; Start 01/22/18 at 21:30; Stop 02/17/18 at 11:30; Status DC Magnesium Hydroxide (Milk Of Magnesia) 2,400 mg PRN QHS PRN PO CONSTIPATION; Start 01/22/18 at 21:30; Stop 02/17/18 at 11:30; Status DC Lorazepam (Ativan) 0.5 mg QHS PO Last administered on 02/04/18at 19:47; Start at 22:30; Stop 02/05/18 at 10:55; Status DC Lorazepam (Ativan) 0.5 mg PRN Q4HRS PRN PO ANXIETY / AGITATION Last administered on 02/14/18at 23:32; Start 01/22/18 at 22:30; Stop 02/17/18 at 11:30 ; Status DC Quetiapine Fumarate (SEROquel) 50 mg TID PO Last administered on 02/17/18 09: 32; Start 01/22/18 at 22:30; Stop 02/17/18 at 11:30; Status DC Acetaminophen (Tylenol) 650 mg PRN Q4HRS PRN PO PAIN; Start 01/22/18 at 22:15; Stop 01/22/18 at 22:24; Status DC Aspirin ([place] Aspirin) 325 mg DAILY PO Last administered on 02/05/18 09:21; Start 01/23/18 at 09:00; Stop 02/05/18 at 18:03; Status DC Vitamin D (Vitamin D3) 1,000 unit QMWF PO Last administered on 01/26/18at 10:44; Start 01/23/18 at 16:00; Stop 01/27/18 at 13:40; Status DC Cyanocobalamin (Vitamin B-12) 1,000 mcg DAILY PO Last administered on 09:32; Start 01/23/18 at 09:00; Stop 02/17/18 at 11:30; Status DC Diltiazem HCl (Cardizem 24hr Cd) 120 mg DAILY PO Last administered on 01/24/18at 07:57; Start 01/23/18 at 09:00; Stop 01/25/18 at 15:15; Status DC Furosemide (Lasix) 20 mg DAILY PO Last administered on 02/17/18 09:31; Start 01/23/18 at 09:00; Stop 02/17/18 at 11:30; Status DC Ipratropium [place] (Atrovent) 0.2 mg PRN Q4HRS PRN IH SHORTNESS OF BREATH; Start 01/22/18 at 22:15; Stop 02/17/18 at 11:30; Status DC Albuterol/ Ipratropium (Duoneb) 3 ml PRN QID PRN NEB SHORTNESS OF BREATH; Start 01/22/18 at 22:15; Stop 02/17/18 at 11:30; Status DC Fish Oil (Fish Oil) 1,000 mg DAILY PO Last administered on 02/17/18at 09:32; Start 01/23/18 at 09:00; Stop 02/17/18 at 11:30; Status DC Potassium Chloride (Klor-Con) 20 meq DAILY PO Last administered on 02/17/18at 09 :31; Start 01/23/18 at 09:00; Stop 02/17/18 at 11:30; Status DC Amiodarone HCl (Cordarone) 200 mg DAILY PO Last administered on 02/17/18at 09:33 ; Start 01/23/18 at 09:00; Stop 02/17/18 at 11:30; Status DC Carvedilol (Coreg) 3.125 mg DAILY PO Last administered on 02/17/18at 09:32; Start 01/23/18 at 09:00; Stop 02/17/18 at 11:30; Status DC Cetirizine HCl (ZyrTEC) 10 mg PRN DAILY PRN PO ALLERGIES Last administered on at 08:45; Start 01/23/18 at 09:00; Stop 02/17/18 at 11:30; Status DC Non-Formulary Medication (Garlic ) 2,000 mg DAILY PO ; Start 01/23/18 at 09:00; Stop 01/23/18 at 09:00; Status DC Lactobacillus Rhamnosus (Culturelle) 1 cap DAILY PO Last administered on at 09:32; Start 01/23/18 at 09:00; Stop 02/17/18 at 11:30; Status DC Levothyroxine Sodium (Synthroid) 50 mcg DAILY07 PO Last administered on at 05:46; Start 01/23/18 at 07:00; Stop 01/23/18 at 14:03; Status DC Magnesium Oxide (Magnesium Oxide) 400 mg DAILY PO Last administered on at 09:32; Start 01/23/18 at 09:00; Stop 02/17/18 at 11:30; Status DC Naproxen (Naprosyn) 500 mg DAILY PO Last administered on 02/05/18at 09:21; Start 01/23/18 at 09:00; Stop 02/05/18 at 18:03; Status DC Polyethylene Glycol (miraLAX) 17 gm PRN DAILY PRN PO CONSTIPATION; Start at 09:00; Stop 02/17/18 at 11:30; Status DC Artificial Tears (Refresh Classic) 1 drop PRN DAILY PRN OU DRY EYE; Start 01/22 at 22:45; Stop 02/17/18 at 11:30; Status DC Acetaminophen (Tylenol) 650 mg PRN Q4HRS PRN PO PAIN / TEMP Last administered on 02/16/18at 20:34; Start 01/22/18 at 22:30; Stop 02/17/18 at 11:30; Status DC Levothyroxine Sodium (Synthroid) 50 mcg DAILY06 PO Last administered on at 06:04; Start 01/24/18 at 06:00; Stop 01/25/18 at 15:10; Status DC Sertraline HCl (Zoloft) 25 mg DAILY PO Last administered on 01/26/18at 10:44; Start 01/24/18 at 09:00; Stop 01/27/18 at 08:59; Status DC Sertraline HCl (Zoloft) 50 mg DAILY PO Last administered on 02/09/18at 07:42; Start 01/27/18 at 09:00; Stop 02/09/18 at 18:40; Status DC Olanzapine (ZyPREXA ZYDIS) 2.5 mg PRN Q2HR PRN PO PSYCHOSIS Last administered on 02/16/18at 15:37; Start 01/24/18 at 22:00; Stop 02/17/18 at 11:30; Status DC Levothyroxine Sodium (Synthroid) 75 mcg DAILY06 PO Last administered on at 04:59; Start 01/26/18 at 06:00; Stop 02/17/18 at 11:30; Status DC Fosfomycin Tromethamine (Monurol) 3 gm 1X ONCE PO Last administered on 18:03; Start 01/25/18 at 16:00; Stop 01/25/18 at 16:01; Status DC Mirtazapine (Remeron) 7.5 mg QHS PO Last administered on 01/26/18at 20:06; Start 01/26/18 at 21:00; Stop 01/27/18 at 18:49; Status DC Naproxen (Naprosyn) 500 mg 1X ONCE PO Last administered on 01/27/18at 08:10; Start 01/27/18 at 08:30; Stop 01/27/18 at 08:32; Status DC Vitamin D (Vitamin D3) 50,000 unit WEEKLY PO Last administered on 02/17/18at 09: 33; Start 01/27/18 at 13:30; Stop 02/17/18 at 11:30; Status DC Mirtazapine (Remeron) 15 mg QHS PO Last administered on 02/16/18at 20:33; Start 01/27/18 at 21:00; Stop 02/17/18 at 11:30; Status DC Trazodone HCl (Desyrel) 50 mg PRN QHS PRN PO INSOMNIA, MAY REPEAT X1 Last administered on 01/31/18at 20:04; Start 01/28/18 at 18:30; Stop 02/01/18 at 20:18; Status DC Trazodone HCl (Desyrel) 50 mg HS PO Last administered on 02/16/18at 20:33; Start 02/01/18 at 21:00; Stop 02/17/18 at 11:30; Status DC Trazodone HCl (Desyrel) 50 mg PRN QHS PRN PO INSOMNIA Last administered on 02/14at 23:32; Start 02/01/18 at 20:30; Stop 02/17/18 at 11:30; Status DC Lorazepam (Ativan) 0.25 mg QHS PO Last administered on 02/06/18at 19:48; Start 02/05/18 at 21:00; Stop 02/06/18 at 21:02; Status DC Sertraline HCl (Zoloft) 75 mg DAILY PO Last administered on 02/17/18at 09:32; Start 02/10/18 at 09:00; Stop 02/17/18 at 11:30; Status DC Active Scripts Active Reported Refresh Classic Eye Drops (Polyvinyl Alcohol/Povidone/Pf) 1 Each Droperette 1 Drop OU PRN DAILY PRN Maalox Advanced Suspension (Mag Hydrox/Aluminum Hyd/Simeth) 355 Ml Oral.susp 15 Ml PO PRN AFTMEALHC PRN Vitamin D3 (Cholecalciferol (Vitamin D3)) 50,000 Unit Capsule 50,000 Unit PO WEEKLY Levothyroxine Sodium 75 Mcg Tablet 75 Mcg PO DAILYAC Trazodone Hcl 50 Mg Tablet 50 Mg PO PRN QHS PRN Trazodone Hcl 50 Mg Tablet 50 Mg PO QHS Zoloft (Sertraline Hcl) 50 Mg Tablet 75 Mg PO DAILY Analgesic [place] (Methyl Salicylate/Menthol) 28 Gm Oint...g. 1 Jony TP PRN Milk Of Magnesia (Magnesium Hydroxide) 2,400 Mg/10 Ml Oral.susp 2,400 Mg PO PRN QHS PRN Olanzapine 5 Mg Tablet 2.5 Mg PO PRN Q2HR PRN Mirtazapine 15 Mg Tablet 15 Mg PO QHS Zyrtec (Cetirizine Hcl) 10 Mg Tablet 10 Mg PO DAILY PRN Vitamin B-12 (Cyanocobalamin (Vitamin B-12)) 1,000 Mcg Tablet 1,000 Mcg PO DAILY Tylenol (Acetaminophen) 325 Mg Tablet 650 Mg PO PRN Q4HRS PRN Systane 0.3-0.4% Eye Drops (Propylene Glycol/Peg 400) 15 Ml Drops 1 Drop OU PRN PRN Seroquel (Quetiapine Fumarate) 50 Mg Tablet 50 Mg PO TID Klor-Con M20 (Potassium Chloride) 20 Meq Tab.er.prt 20 Meq PO DAILY Miralax (Polyethylene Glycol 3350) 17 Gm Powd.pack 17 Gm PO PRN Q24HRS PRN Magnesium Oxide 400 Mg Tablet 400 Mg PO DAILY Lasix (Furosemide) 20 Mg Tablet 20 Mg PO DAILY Ipratropium [place] 0.2 Mg/1 Ml Solution 0.2 Mg IH PRN Q4HRS PRN Fish Oil 1,000 Mg Capsule ([place]-3 Fatty Acids/Fish Oil) 1 Each Capsule 1 Each PO DAILY Duoneb 0.5-3(2.5) Mg/3 Ml (Albuterol/Ipratropium) 3 Ml Ampul.neb 3 Ml NEB PRN QID PRN Culturelle (Lactobacillus Rhamnosus Gg) 1 Each Capsule 1 Each PO DAILY Carvedilol 3.125 Mg Tablet 3.125 Mg PO DAILY Ativan (Lorazepam) 0.5 Mg Tablet 0.5 Mg PO PRN Q4HRS PRN Amiodarone Hcl 200 Mg Tablet 200 Mg PO DAILY I have reviewed the current psychotropics carefully including drug interactions. Risk benefit ratio favors no change other than as noted in my dictated progress note. Diagnosis: Problems: (1) Impulse control disorder (2) Dementia, vascular, with depression (3) Dementia, vascular, with delusions (4) Dementia in Alzheimer's disease with depression (5) Dementia in Alzheimer's disease with delusions (6) Anxiety disorder SANDER RASMUSSEN MD Feb 17, 2018 18:34
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
== END 2018-02-17 11:20 | DRG 57 ==
LOC: ER 18:23 → GEROPSY 20:38 → ER 20:38 → EDBD 20:38 → UNDODISIN 02-16 06:10
PROVIDERS: ADMIT Psychiatry & Neurology Psychiatry; ATTEND Psychiatry & Neurology Psychiatry
PROC: 0HQ7XZZ Repair Abdomen Skin, External Approach (ICD-10-PCS; principal; 2018-02-17)
DX: G30.9 Alzheimer's disease, unspecified (principal); F01.51 Vascular dementia, unspecified severity, with behavioral disturbance; I42.5 Other restrictive cardiomyopathy; F02.81 Dementia in other diseases classified elsewhere, unspecified severity, with behavioral disturbance; E03.9 Hypothyroidism, unspecified; F32.9 Major depressive disorder, single episode, unspecified; F41.9 Anxiety disorder, unspecified; F60.9 Personality disorder, unspecified; F63.9 Impulse disorder, unspecified; G47.00 Insomnia, unspecified; I48.91 Unspecified atrial fibrillation; I50.9 Heart failure, unspecified; W18.39XA Other fall on same level, initial encounter; Z66 Do not resuscitate; B95.2 Enterococcus as the cause of diseases classified elsewhere; Y92.230 Patient room in hospital as the place of occurrence of the external cause; Z79.899 Other long term (current) drug therapy; Z90.710 Acquired absence of both cervix and uterus; Z88.6 Allergy status to analgesic agent; Z88.1 Allergy status to other antibiotic agents; Z88.0 Allergy status to penicillin; Z88.8 Allergy status to other drugs, medicaments and biological substances; Z91.83 Wandering in diseases classified elsewhere; Z90.49 Acquired absence of other specified parts of digestive tract; Y93.89 Activity, other specified; Y99.8 Other external cause status
CPT/HCPCS: 36415; 80053; 80061; 81001; 82274; 82306; 82607; 83036; 83540; 83550; 83735; 84436; 84443; 84480; 85025; 85027; 86593; 87086; 87186; 87324; 93005; 99285-25

== ENCOUNTER 2018-02-16 06:15 | Emergency (ER) | payer MEDICARE ==
[~2018-02-16] VITALS: Ht 170.2 cm; Wt 72.6 kg
[~2018-02-16 06:15] MED LIST: ACET325T9 PO; AMIO200T2 PO; ASPI325T8 PO; CARV3.122 PO; CETI10TA22 PO; CHOL10003 PO; CHOL500050 PO; CYAN10005 PO; DILT120C80 PO; FEXO180T81 PO; FURO-69 PO; GARL10002 PO; IPRA0.2S5 IH; IPRA3AMP NEB; LACT1CAP21 PO; LEVO50TA PO; LEVO75TA5 PO; LORA0.5T96 PO; MAGN2400 PO; MAGN400T3 PO; METH29OI TP; MIRT15TA3 PO; NAPR-683 PO; OLAN5TAB9 PO; OMEG1CAP6 PO; POLY17PO5 PO; POTA20TA4 PO; PROP15DR40 OU; QUET50TA5 PO; SERT50TA PO; TRAZ50TA15 PO
--- NOTE | 2018-02-16 06:39 | PHYS DOC ---
Past History Past Medical History: A-Fib, CHF, Dementia, Other Past Surgical History: No Surgical History, Other Alcohol Use: None Drug Use: None Adult General Chief Complaint Chief Complaint: MECHANICAL FALL HPI HPI 82-year-old female patient [facility] brought in by EMS because of a fall. Nursing staff reported that patient fell on portable vital signs machine and injured right flank with a laceration because of hanging on the machine and then had a fall and hit her head without loss of consciousness. Patient is alert and oriented 2 and complaining of pain in right flank without other complaints. Patient is not up-to-date with tetanus immunization but states she had reaction to tetanus vaccine several years ago. Review of Systems Review of Systems Constitutional: Denies fever or chills [] Eyes: Denies change in visual acuity, redness, or eye pain [] HENT: Denies nasal congestion or sore throat [] Respiratory: Denies cough or shortness of breath [] Cardiovascular: No additional information not addressed in HPI [] GI: Denies abdominal pain, nausea, vomiting, bloody stools or diarrhea [] : Denies dysuria or hematuria [] Musculoskeletal: Denies back pain or joint pain [] Integument: Denies rash or skin lesions, reports laceration [] Neurologic: Denies headache, focal weakness or sensory changes [] Endocrine: Denies polyuria or polydipsia [] All other systems were reviewed and found to be within normal limits, except as documented in this note. Current Medications Current Medications Current Medications Medications (Trade) Dose Ordered Sig/Harry Start Time Stop Time Status Last Admin Dose Admin Diphtheria/ Tetanus/Acell Pertussis (Boostrix) 0.5 ml ONCE ONCE 02/16/18 07:00 02/16/18 07:01 Lidocaine HCl 20 ml 1X ONCE 02/16/18 07:00 02/16/18 07:01 Allergies Allergies Allergies Coded Allergies Type Severity Reaction Last Updated Verified Iodine and Iodide Containing Produc Allergy Intermediate 01/23/18 Yes Penicillins Allergy Intermediate 01/23/18 Yes morphine Allergy Intermediate 01/23/18 Yes Physical Exam Physical Exam Constitutional: Well nourished, mild acute distress, non-toxic appearance. [] HENT: Normocephalic, atraumatic, bilateral external ears normal, oropharynx moist, no oral exudates, nose normal. [] Eyes: PERRLA, EOMI, conjunctiva normal, no discharge. [] Neck: Normal range of motion, no tenderness, supple, no stridor. [] Cardiovascular:Heart rate regular rhythm, no murmur [] Lungs & Thorax: Bilateral breath sounds clear to auscultation [] Abdomen: Bowel sounds normal, soft, no tenderness, no masses, no pulsatile masses. [] Skin: Warm, dry, no erythema, no rash, 7 cm irregular and deep laceration in the right flank with exposed subcutaneous fat. [] Back: No tenderness, no CVA tenderness. [] Extremities: No tenderness, no cyanosis, no clubbing, ROM intact, no edema. [] Neurologic: Alert and oriented X 3, normal motor function, normal sensory function, no focal deficits noted. [] Psychologic: Affect anxious, mood normal. [] EKG EKG [] Radiology/Procedures Radiology/Procedures [][place] [address] IMAGING REPORT Signed PATIENT: FRANCESCA URIARTE ACCOUNT: [id number] : 1935 LOCATION: ER AGE: 82 SEX: F EXAM STATUS: REG ER ORD. PHYSICIAN: KATIE VELEZ MD REASON: fall PROCEDURE: CT HEAD AND CERVICAL SPINE WO CT of the head without contrast, 02/16/2018: HISTORY: Fall There is moderately severe bilateral cerebral atrophy. There are moderate patchy bilateral deep white matter lucencies compatible with chronic ischemic change. The ventricles are enlarged on a compensatory basis. There is no shift of the midline structures. No acute intracranial hemorrhage or mass effect is seen. IMPRESSION: 1. Chronic findings as described above. 2. No acute intracranial abnormality is detected. CT of the cervical spine without contrast, 02/16/2018: Noncontrast scans were obtained with multiplanar reconstructions produced. There is disc space narrowing with mild anterior and posterior marginal spurring at multiple levels. There are moderate degenerative changes involving the facet joints bilaterally at multiple levels. The facet joints at C2-3 appear to be fused. No high-grade central spinal stenosis is seen. There is moderate to severe foraminal narrowing at multiple levels bilaterally. No acute fracture or dislocation is identified. IMPRESSION: 1. Moderate multilevel degenerative change. 2. No acute bony abnormality is detected. Electronically signed by: Zain York MD (02/16/2018 7:53 AM) [facility] DICTATED AND SIGNED BY: ZAIN YORK MD DATE: 02/16/18 07 CC: KATIE VELEZ MD; RAÚL SALGUERO DO ~ [place] [address] IMAGING REPORT Signed PATIENT: FRANCESCA URIARTE ACCOUNT: [id number] : 1935 LOCATION: ER AGE: 82 SEX: F EXAM STATUS: REG ER ORD. PHYSICIAN: KATIE VELEZ MD REASON: fall PROCEDURE: CT CHEST ABDOMEN PELVIS WO ADDENDUM PQRS Compliance Statement: One or more of the following individualized dose reduction techniques were utilized for this examination: 1. Automated exposure control 2. Adjustment of the mA and/or kV according to patient size 3. Use of iterative reconstruction technique Electronically signed by: Zain York MD (02/16/2018 8:26 AM) [facility] DICTATED AND SIGNED BY: ZAIN YORK MD DATE: 02/16/18825 CC: KATIE VELEZ MD; RAÚL SALGUERO DO ~ CT of the chest, abdomen and pelvis without contrast, 02/16/2018: HISTORY: Fall, right-sided pain Noncontrast scans were obtained with multiplanar reconstructions produced. There is mild chest wall emphysema posterior laterally in the right lower chest. No underlying displaced rib fracture is evident. There is a tiny amount of right-sided pleural fluid fluid. No significant pneumothorax is evident on the right. There are moderate streaky opacities in both lungs probably represent a combination of atelectasis and scarring. There are peripheral pleural/parenchymal opacities in both apices probably representing scarring. There is slight pleural thickening posteriorly on the left in a pattern suggesting a tiny amount of left-sided pleural fluid. There is moderate calcific plaquing of the thoracic aorta without evidence of aneurysm. Moderate coronary artery calcifications are present. No mediastinal hemorrhage is seen. There is a small cyst in the right lobe of the liver. No hepatic or splenic laceration is seen. The gallbladder is unremarkable. No pancreatic abnormality is detected. No renal laceration is seen. There is mild bilateral hydronephrosis with a large extrarenal pelves. The urinary bladder is distended. Moderate aortoiliac calcific plaquing is present in the uterus is surgically absent. Moderate multilevel degenerative changes are present in the spine. Bilateral breast implants are in place with extensive capsular calcifications. IMPRESSION: 1. Mild chest wall emphysema posterolaterally on the lower right. Although no displaced rib fractures evident, an occult nondisplaced rib fracture is likely considering the presence of this chest wall emphysema. 2. Tiny right pleural effusion without significant pneumothorax. 3. Bilateral pleural-parenchymal scarring with additional scattered streaky bilateral parenchymal opacities compatible with atelectasis and/or additional scarring. 4. Moderate aortic atherosclerosis with coronary artery calcifications. 5. Mild bilateral hydronephrosis. 6. Distended urinary bladder. 7. No acute intra-abdominal or pelvic abnormality is detected. Electronically signed by: Zain York MD (02/16/2018 8:15 AM) [facility] DICTATED AND SIGNED BY: ZAIN YORK MD DATE: 02/16/18 0756 CC: KATIE VELEZ MD; RAÚL SALGUERO DO ~ Course & Med Decision Making Course & Med Decision Making Pertinent Imaging studies reviewed. (See chart for details) Evaluation of patient in ER showed 82-year-old male patient resident of similar behavior home with a fall and laceration of right flank. Patient had 7 cm laceration that was repaired. The CT head, C-spine, chest and abdomen and pelvis was unremarkable for acute finding. Patient was discharged to senior behavioral unit. [] Dragon Disclaimer Dragon Disclaimer This electronic medical record was generated, in whole or in part, using a voice recognition dictation system. Departure Departure: Impression: Primary Impression: Right flank laceration Additional Impression: Fall Disposition: 01 HOME, SELF-CARE (discharged to [facility] at 8:30) Condition: IMPROVED Referrals: RAÚL SALGUERO DO (PCP) Patient Instructions: Fall Prevention in Hospitals, Sutured Wound Care Additional Instructions: Suture removal in 12-14 days Follow-up with your primary care physician in 3-5 days Return to ER if not getting better Laceration Repair Lac Repair Indication: []Right flank laceration] Procedure: The patient was placed in the appropriate position and anesthesia around the [flank laceration with 10 ml of1% lidocaine was given. The area was then [cleaned with normal saline]. The laceration was [repaired in one layer with 7 stitches of 4-0 nylon]. [ADDITIONAL LACS] The wound area was then dressed with [nonadhesive dressing Total repaired wound length: [7 cm Other Items: [OTHER ITEMS] The patient tolerated the procedure [well]. Complications: [none]. Problem Qualifiers KATIE VELEZ MD Feb 16, 2018 06:39
[2018-02-16] MEDS ORDERED: LIDOCAINE 1% Multi-Dose 20 ML VIAL. IJ ONE (07:00)
[2018-02-16] MEDS ORDERED: DIPHTH,PERTUSS(ACELL),TET TOX 0.5 ML DISP.SYRIN. VAX IM ONE (07:00)
--- NOTE | 2018-02-16 07:56 | RAD ---
CT of the head without contrast, 02/16/2018: HISTORY: Fall There is moderately severe bilateral cerebral atrophy. There are moderate patchy bilateral deep white matter lucencies compatible with chronic ischemic change. The ventricles are enlarged on a compensatory basis. There is no shift of the midline structures. No acute intracranial hemorrhage or mass effect is seen. IMPRESSION: 1. Chronic findings as described above. 2. No acute intracranial abnormality is detected. CT of the cervical spine without contrast, 02/16/2018: Noncontrast scans were obtained with multiplanar reconstructions produced. There is disc space narrowing with mild anterior and posterior marginal spurring at multiple levels. There are moderate degenerative changes involving the facet joints bilaterally at multiple levels. The facet joints at C2-3 appear to be fused. No high-grade central spinal stenosis is seen. There is moderate to severe foraminal narrowing at multiple levels bilaterally. No acute fracture or dislocation is identified. IMPRESSION: 1. Moderate multilevel degenerative change. 2. No acute bony abnormality is detected. Electronically signed by: Zain York MD (02/16/2018 7:53 AM) [facility]
--- NOTE | 2018-02-16 08:19 | RAD ---
CT of the chest, abdomen and pelvis without contrast, 02/16/2018: HISTORY: Fall, right-sided pain Noncontrast scans were obtained with multiplanar reconstructions produced. There is mild chest wall emphysema posterior laterally in the right lower chest. No underlying displaced rib fracture is evident. There is a tiny amount of right-sided pleural fluid fluid. No significant pneumothorax is evident on the right. There are moderate streaky opacities in both lungs probably represent a combination of atelectasis and scarring. There are peripheral pleural/parenchymal opacities in both apices probably representing scarring. There is slight pleural thickening posteriorly on the left in a pattern suggesting a tiny amount of left-sided pleural fluid. There is moderate calcific plaquing of the thoracic aorta without evidence of aneurysm. Moderate coronary artery calcifications are present. No mediastinal hemorrhage is seen. There is a small cyst in the right lobe of the liver. No hepatic or splenic laceration is seen. The gallbladder is unremarkable. No pancreatic abnormality is detected. No renal laceration is seen. There is mild bilateral hydronephrosis with a large extrarenal pelves. The urinary bladder is distended. Moderate aortoiliac calcific plaquing is present in the uterus is surgically absent. Moderate multilevel degenerative changes are present in the spine. Bilateral breast implants are in place with extensive capsular calcifications. IMPRESSION: 1. Mild chest wall emphysema posterolaterally on the lower right. Although no displaced rib fractures evident, an occult nondisplaced rib fracture is likely considering the presence of this chest wall emphysema. 2. Tiny right pleural effusion without significant pneumothorax. 3. Bilateral pleural-parenchymal scarring with additional scattered streaky bilateral parenchymal opacities compatible with atelectasis and/or additional scarring. 4. Moderate aortic atherosclerosis with coronary artery calcifications. 5. Mild bilateral hydronephrosis. 6. Distended urinary bladder. 7. No acute intra-abdominal or pelvic abnormality is detected. Electronically signed by: Zain York MD (02/16/2018 8:15 AM) [facility]
[2018-02-16 09:03] VITALS: BP 154/72
[2018-02-17] MEDS ORDERED: MAG355OR11 PO (01:49)
[2018-02-17] MEDS ORDERED: POLY1DRO3 OU (01:52)
== END 2018-02-16 08:50 ==
LOC: ER 06:15
DX: S31.113A Laceration without foreign body of abdominal wall, right lower quadrant without penetration into peritoneal cavity, initial encounter (principal); I50.9 Heart failure, unspecified; I48.91 Unspecified atrial fibrillation; Z88.0 Allergy status to penicillin; Z88.5 Allergy status to narcotic agent; Z91.041 Radiographic dye allergy status; W18.09XA Striking against other object with subsequent fall, initial encounter; Y93.89 Activity, other specified; Y99.8 Other external cause status; Y92.89 Other specified places as the place of occurrence of the external cause
CPT/HCPCS: 12002; 70450; 71250; 72125; 74176; 99285-25